=== PATIENT | male | born 1985 | race Caucasian/White ===

== ENCOUNTER 2016-12-26 17:47 | Inpatient (IN) | payer OTHER ==
[~2016-12-26] VITALS: Ht 177.8 cm; Wt 59.3 kg
[~2016-12-26 17:47] MED LIST: LANTUS2P SQ; LANTUSP SQ; METHY10 PO; NOVORP2 SQ
[2016-12-26 18:30] VITALS: BP 107/76; PULSE 100; RESP 18
[2016-12-26] MEDS ORDERED: SODIUM CHLOR 0.9% 1000 ML INJ 1,000 ML IV ONE ×2 (18:33→19:03)
--- NOTE | 2016-12-26 18:33 | PD ---
HPI Chief Complaint: Psychiatric Symptoms Time Seen by Provider: 18:29 Travel History International Travel<30 days: No Contact w/Intl Traveler<30days: No Traveled to known affect area: No History of Present Illness HPI 31-year-old male with history of depression, type 1 diabetes, presents to emergency department under Gonzalez act for psychiatric evaluation. Patient states that he was working in the [employer] and his father thought that he was planning on hanging himself. He states he did not make any mention of this. He attributes this to his father being intoxicated. Patient states he is depressed and has extreme anxiety. States that his blood glucose has been poorly controlled due to not being able to get his medication. Denies any chest pharyngitis. Difficulty breathing. No fever or chills. He has other symptoms to report. PFSH Past Medical History Blood Disorders: No Anxiety: Yes Depression: Yes Cancer: No Cardiovascular Problems: No Diabetes: Yes Diminished Hearing: No Endocrine: Yes Genitourinary: No Immune Disorder: No Musculoskeletal: Yes (L HIP) Neurologic: No Psychiatric: Yes Reproductive: No Respiratory: No Immunizations Current: Yes Pancreatitis: Yes Renal Failure: Yes Seizures: No Thyroid Disease: No Ulcer: No Past Surgical History Appendectomy: Yes Other Surgery: Yes (APPENDECTOMY AT 16 Y/O) Social History Alcohol Use: No Tobacco Use: Yes (2 ppd) Substance Use: Yes Allergies-Medications (Allergen,Severity, Reaction): Coded Allergies: No Known Allergies (Verified , 10/23/06) Reported Meds & Prescriptions Reported Meds & Active Scripts Active Reported Dilaudid (Hydromorphone HCl) 4 Mg Tab 4 Mg PO Q6H PRN Valium (Diazepam) 10 Mg Tab 10 Mg PO TID PRN Ritalin IR (Methylphenidate HCl) 20 Mg Tab 20 Mg PO TIDAC Humulin R Inj (Insulin Human Regular) 1,000 Unit/10 Ml Vial 1 Units SQ ONCE Lantus Inj (Insulin Glargine) 1,000 Unit/10 Ml Vial 47 Units SQ HS Gabapentin 600 Mg Tab 600 Mg PO BID Gemfibrozil 600 Mg Tab 600 Mg PO DAILY Take 30 minutes prior to breakfast and dinner. Review of Systems Except as stated in HPI: all other systems reviewed are Neg Physical Exam Narrative GENERAL: Thin male patient, anxious but in no acute distress. SKIN: Focused skin assessment warm/dry. HEAD: Atraumatic. Normocephalic. EYES: Pupils equal and round. No scleral icterus. No injection or drainage. ENT: No nasal bleeding or discharge. Mucous membranes pink and moist. NECK: Trachea midline. No JVD. CARDIOVASCULAR: Regular rate and rhythm. No murmur appreciated. RESPIRATORY: No accessory muscle use. Clear to auscultation. Breath sounds equal bilaterally. GASTROINTESTINAL: Abdomen soft, non-tender, nondistended. Hepatic and splenic margins not palpable. MUSCULOSKELETAL: No obvious deformities. No clubbing. No cyanosis. No edema. NEUROLOGICAL: Awake and alert. No obvious cranial nerve deficits. Motor grossly within normal limits. Normal speech. Data Data Last Documented VS Vital Signs Date Time Temp Pulse Resp B/P (MAP) Pulse Ox O2 Delivery O2 Flow Rate FiO2 12/26/16 21:24 67 12 108/53 (71) 98 Room Air Orders Orders Electrocardiogram (12/26/16 18:33) Complete Blood Count With Diff (12/26/16 18:33) Comprehensive Metabolic Panel (12/26/16 18:33) Magnesium (Mg) (12/26/16 18:33) Beta Hydroxybutyrate (Acetone) (12/26/16 18:33) Urinalysis - C+S If Indicated (12/26/16 18:33) Ecg Monitoring (12/26/16 18:33) Iv Access Insert/Monitor (12/26/16 18:33) Oximetry (12/26/16 18:33) NPO (12/26/16 18:33) Sodium Chlor 0.9% 1000 Ml Inj (Ns 1000 M (12/26/16 18:33) Sodium Chlor 0.9% 1000 Ml Inj (Ns 1000 M (12/26/16 19:03) Sodium Chloride 0.9% Flush (Ns Flush) (12/26/16 18:45) Lipase (12/26/16 18:33) Psych Screen (12/26/16 18:37) Arterial Blood Gas (Abg) (12/26/16 ) Insulin Human Regular Inj (Novolin R Inj (12/26/16 22:15) Lactated Ringer's 1000 Ml Inj (Lr 1000 M (12/26/16 22:15) Insulin Human Regular Inj (Novolin R Inj (12/26/16 22:30) Labs Laboratory Tests Test 12/26/16 18:05 12/26/16 19:10 12/26/16 20:49 White Blood Count 7.3 TH/MM3 Red Blood Count 5.04 MIL/MM3 Hemoglobin 14.8 GM/DL Hematocrit 44.1 % Mean Corpuscular Volume 87.5 FL Mean Corpuscular Hemoglobin 29.5 PG Mean Corpuscular Hemoglobin Concent 33.7 % Red Cell Distribution Width 14.3 % Platelet Count 243 TH/MM3 Mean Platelet Volume 9.3 FL Neutrophils (%) (Auto) 52.0 % Lymphocytes (%) (Auto) 40.4 % Monocytes (%) (Auto) 5.0 % Eosinophils (%) (Auto) 1.5 % Basophils (%) (Auto) 1.1 % Neutrophils # (Auto) 3.8 TH/MM3 Lymphocytes # (Auto) 2.9 TH/MM3 Monocytes # (Auto) 0.4 TH/MM3 Eosinophils # (Auto) 0.1 TH/MM3 Basophils # (Auto) 0.1 TH/MM3 CBC Comment DIFF FINAL Differential Comment Blood Gas Puncture Site RT RADIAL Blood Gas Patient Temperature 98.6 Blood Gas HCO3 30 mmol/L Blood Gas Base Excess 5.1 mmol/L Blood Gas Oxygen Saturation 92 % Arterial Blood pH 7.39 Arterial Blood Partial Pressure CO2 50 mmHg Arterial Blood Partial Pressure O2 80 mmHG Arterial Blood Oxygen Content 17.1 Vol % Arterial Blood Carboxyhemoglobin 3.8 % Arterial Blood Methemoglobin 0.5 % Blood Gas Hemoglobin 13.2 G/DL Oxygen Delivery Device ROOM AIR Blood Gas Inspired Oxygen 21 % Blood Urea Nitrogen 19 MG/DL Creatinine 1.27 MG/DL Random Glucose 516 MG/DL Total Protein 8.5 GM/DL Albumin 3.5 GM/DL Calcium Level 8.8 MG/DL Magnesium Level 2.1 MG/DL Alkaline Phosphatase 94 U/L Aspartate Amino Transf (AST/SGOT) 26 U/L Alanine Aminotransferase (ALT/SGPT) 26 U/L Total Bilirubin 0.7 MG/DL Sodium Level 129 MEQ/L Potassium Level 4.3 MEQ/L Chloride Level 92 MEQ/L Carbon Dioxide Level 28.5 MEQ/L Anion Gap 9 MEQ/L Estimat Glomerular Filtration Rate 67 ML/MIN Lipase 39 U/L B-Hydroxybutyrate 0.17 MMOL/L [facility] Medical Decision Making Medical Screen Exam Complete: Yes Emergency Medical Condition: Yes Medical Record Reviewed: Yes Differential Diagnosis Hyperglycemia versus DKA versus substance abuse versus mood disorder versus personality disorder versus adjustment reaction disorder Narrative Course 31-year-old male presents to the emergency department under a Gonzalez act for psychiatric evaluation. Patient has history of diabetes and states he has poorly controlled diabetes. He also has chronic pain secondary to a left femur fracture. We are unable to obtain a number reading on her Accu-Chek. Lab work is sent for medical clearance. Patient is given IV fluid illnesses. Chem panel has not yet resulted. I have requested a Accu-Chek. Blood glucoses 342. He is given 5 units subcutaneous regular insulin and a liter of fluid. Laboratory Tests Test 12/26/16 18:05 12/26/16 19:10 12/26/16 20:49 White Blood Count 7.3 TH/MM3 Red Blood Count 5.04 MIL/MM3 Hemoglobin 14.8 GM/DL Hematocrit 44.1 % Mean Corpuscular Volume 87.5 FL Mean Corpuscular Hemoglobin 29.5 PG Mean Corpuscular Hemoglobin Concent 33.7 % Red Cell Distribution Width 14.3 % Platelet Count 243 TH/MM3 Mean Platelet Volume 9.3 FL Neutrophils (%) (Auto) 52.0 % Lymphocytes (%) (Auto) 40.4 % Monocytes (%) (Auto) 5.0 % Eosinophils (%) (Auto) 1.5 % Basophils (%) (Auto) 1.1 % Neutrophils # (Auto) 3.8 TH/MM3 Lymphocytes # (Auto) 2.9 TH/MM3 Monocytes # (Auto) 0.4 TH/MM3 Eosinophils # (Auto) 0.1 TH/MM3 Basophils # (Auto) 0.1 TH/MM3 CBC Comment DIFF FINAL Differential Comment Blood Gas Puncture Site RT RADIAL Blood Gas Patient Temperature 98.6 Blood Gas HCO3 30 mmol/L Blood Gas Base Excess 5.1 mmol/L Blood Gas Oxygen Saturation 92 % Arterial Blood pH 7.39 Arterial Blood Partial Pressure CO2 50 mmHg Arterial Blood Partial Pressure O2 80 mmHG Arterial Blood Oxygen Content 17.1 Vol % Arterial Blood Carboxyhemoglobin 3.8 % Arterial Blood Methemoglobin 0.5 % Blood Gas Hemoglobin 13.2 G/DL Oxygen Delivery Device ROOM AIR Blood Gas Inspired Oxygen 21 % Blood Urea Nitrogen 19 MG/DL Creatinine 1.27 MG/DL Random Glucose 516 MG/DL Total Protein 8.5 GM/DL Albumin 3.5 GM/DL Calcium Level 8.8 MG/DL Magnesium Level 2.1 MG/DL Alkaline Phosphatase 94 U/L Aspartate Amino Transf (AST/SGOT) 26 U/L Alanine Aminotransferase (ALT/SGPT) 26 U/L Total Bilirubin 0.7 MG/DL Sodium Level 129 MEQ/L Potassium Level 4.3 MEQ/L Chloride Level 92 MEQ/L Carbon Dioxide Level 28.5 MEQ/L Anion Gap 9 MEQ/L Estimat Glomerular Filtration Rate 67 ML/MIN Lipase 39 U/L B-Hydroxybutyrate 0.17 MMOL/L He is signed out to my attending physician. He remains under Gonzalez act. I have initiated sliding scale insulin and Accu-Cheks. If blood glucose continues to decline, patient will be medically cleared to undergo psychiatric screening for further evaluation and disposition. Mental health screening discussed with the patient. Psychiatric screen ordered. Diagnosis Primary Impression: Adjustment reaction with anxiety and depression Additional Impression: Hyperglycemia due to type 1 diabetes mellitus Condition: Stable Wendy Cunha Dec 26, 2016 18:33
[2016-12-26] MEDS ORDERED: SODIUM CHLORIDE 0.9% FLUSH 10 ML FLUSH IVF PRN (18:45)
[2016-12-26] MEDS ORDERED: DIAZ10 PO (18:49)
[2016-12-26] MEDS ORDERED: GEMF600T PO (18:49)
[2016-12-26] MEDS ORDERED: GABA600T PO (18:49)
[2016-12-26] MEDS ORDERED: LANTUS2P SQ (18:49)
[2016-12-26] MEDS ORDERED: RITA20TA PO (18:49)
[2016-12-26] MEDS ORDERED: DILA4TAB2 PO (18:49)
[2016-12-26] MEDS ORDERED: INSU100V2 SQ (18:49)
[2016-12-26 18:57] LABS: AUTOMATED NEUTROPHIL # 3.8 TH/MM3 (1.8-7.7); BASOPHIL # 0.1 TH/MM3 (0-0.2); BASOPHIL % 1.1 % (0.0-2.0); EOSINOPHIL # 0.1 TH/MM3 (0-0.4); EOSINOPHIL % 1.5 % (0.0-4.0); HEMATOCRIT 44.1 % (39.0-51.0); HEMO FLAGS DIFF FINAL; LYMPH % 40.4 % (9.0-44.0); LYMPHOCYTE # 2.9 TH/MM3 (1.0-4.8); MEAN CELL VOLUME 87.5 FL (80.0-100.0); MEAN CORPUSCULAR HEMOGLOBIN 29.5 PG (27.0-34.0); MEAN CORPUSCULAR HGB CONC 33.7 % (32.0-36.0); PLATELET COUNT 243 TH/MM3 (150-450); RED BLOOD COUNT 5.04 MIL/MM3 (4.50-5.90); RED CELL DISTRIBUTION WIDTH 14.3 % (11.6-17.2); WHITE BLOOD COUNT 7.3 TH/MM3 (4.0-11.0)
[2016-12-26 19:22] LABS: BLOOD GAS BASE EXCESS 5.1 mmol/L (-2-2); BLOOD GAS CARBOXYHEMOGLOBIN 3.8 % (0-4); BLOOD GAS HCO3 30 mmol/L (22-26); BLOOD GAS METHEMOGLOBIN 0.5 % (0-2); BLOOD GAS O2 HGB SATURATION 92 % (90-100); BLOOD GAS OXYGEN CONTENT 17.1 Vol % (12.0-20.0); BLOOD GAS PCO2 50 mmHg (38-42); BLOOD GAS PO2 80 mmHG (61-120); BLOOD GAS TOTAL HGB 13.2 G/DL (12.0-16.0); CRITICAL VALUE NO; FIO2 21 %; OXYGEN DEVICE ROOM AIR; TEMP CORR TO 98.6
[2016-12-26 19:23] LABS: DRAW SITE RT RADIAL; NUMBER OF ARTERIAL PUNCTURES 1; STAT YES; ULNAR PULSE PRESENT
[2016-12-26 19:34] VITALS: RESP 12; O2SAT 93
[2016-12-26 19:35] VITALS: BP 104/69; PULSE 72; RESP 12; O2SAT 94
[2016-12-26 20:39] VITALS: BP 116/77; PULSE 68; RESP 12; O2SAT 99
[2016-12-26 21:24] VITALS: BP 108/53; PULSE 67; RESP 12; O2SAT 98
[2016-12-26 21:40] LABS: ALKALINE PHOSPHATASE 94 U/L (45-117); ALT (GPT) 26 U/L (12-78); ANION GAP 9 MEQ/L (5-15); AST (GOT) 26 U/L (15-37); BETA-HYDROXYBUTYRATE 0.17 MMOL/L (0.00-0.39); BICARBONATE 28.5 MEQ/L (21.0-32.0); BLOOD UREA NITROGEN 19 MG/DL (7-18); CHLORIDE 92 MEQ/L (98-107); GLOMERULAR FILTRATION RATE 67 ML/MIN (>89); MAGNESIUM 2.1 MG/DL (1.5-2.5); POTASSIUM 4.3 MEQ/L (3.5-5.1); SODIUM (NA) 129 MEQ/L (136-145); TOTAL BILIRUBIN ADULT 0.7 MG/DL (0.2-1.0)
[2016-12-26] MEDS ORDERED: INSULIN HUMAN REGULAR 1,000 UNITS/10 ML VIAL SQ ONE ×2 (22:15→22:30)
[2016-12-26] MEDS ORDERED: LACTATED RINGER'S 1000 ML INJ 1,000 ML IV ONE (22:15)
[2016-12-26] MEDS ORDERED: GLUCAGON 1 MG/ML VIAL OTHER PRN ×2 (22:30)
[2016-12-26] MEDS ORDERED: DEXTROSE 50% IN WATER 50 ML VIAL(D50) IV PRN (22:30)
[2016-12-27 00:03] VITALS: BP 101/69; PULSE 72; RESP 12; O2SAT 99
--- NOTE | 2016-12-27 01:33 | PD ---
Physical Exam Date Seen by Provider: Dec 27, 2016 Time Seen by Provider: 01:32 Narrative Accepted in transfer of care GENERAL: Well developed dishevelled male in no acute distress; GCS 15 SKIN: Warm and dry. HEAD: Normocephalic. EYES: No scleral icterus. No injection or drainage. NECK: Supple, trachea midline. No JVD or lymphadenopathy. CARDIOVASCULAR: Regular rate and rhythm without murmurs, gallops, or rubs. RESPIRATORY: Breath sounds equal bilaterally. No accessory muscle use. Data Data Last Documented VS Vital Signs Date Time Temp Pulse Resp B/P (MAP) Pulse Ox O2 Delivery O2 Flow Rate FiO2 12/27/16 07:00 71 15 91/54 (66) 100 Room Air Orders Orders Electrocardiogram (12/26/16 18:33) Complete Blood Count With Diff (12/26/16 18:33) Comprehensive Metabolic Panel (12/26/16 18:33) Magnesium (Mg) (12/26/16 18:33) Beta Hydroxybutyrate (Acetone) (12/26/16 18:33) Urinalysis - C+S If Indicated (12/26/16 18:33) Ecg Monitoring (12/26/16 18:33) Iv Access Insert/Monitor (12/26/16 18:33) Oximetry (12/26/16 18:33) NPO (12/26/16 18:33) Sodium Chlor 0.9% 1000 Ml Inj (Ns 1000 M (12/26/16 18:33) Sodium Chlor 0.9% 1000 Ml Inj (Ns 1000 M (12/26/16 19:03) Sodium Chloride 0.9% Flush (Ns Flush) (12/26/16 18:45) Lipase (12/26/16 18:33) Psych Screen (12/26/16 18:37) Arterial Blood Gas (Abg) (12/26/16 ) Insulin Human Regular Inj (Novolin R Inj (12/26/16 22:15) Lactated Ringer's 1000 Ml Inj (Lr 1000 M (12/26/16 22:15) Insulin Human Regular Inj (Novolin R Inj (12/26/16 22:30) Blood Glucose Goal (Criteria) (12/26/16 22:28) Hypoglycemia 70 Mg/Dl Or < (12/26/16 22:28) Notify Dr: Other (12/26/16 22:28) Dextrose 50% In Ramirez (Vial) Inj (D50w (Vi (12/26/16 22:30) Glucagon Inj (Glucagon Inj) (12/26/16 22:30) Blood Glucose Goal (Criteria) (12/26/16 22:28) Hypoglycemia 70 Mg/Dl Or < (12/26/16 22:28) Notify Dr: Other (12/26/16 22:28) Dextrose 50% In Ramirez (Vial) Inj (D50w (Vi (12/26/16 22:30) Glucagon Inj (Glucagon Inj) (12/26/16 22:30) Insulin Human Reg Supp Scale (Novolin R (12/27/16 07:00) Sodium Chlor 0.9% 1000 Ml Inj (Ns 1000 M (12/27/16 01:45) Insulin Human Regular Inj (Novolin R Inj (12/27/16 02:00) Diet Diabetic (12/27/16 Breakfast) Labs Laboratory Tests Test 12/26/16 18:05 12/26/16 19:10 12/26/16 20:49 White Blood Count 7.3 TH/MM3 Red Blood Count 5.04 MIL/MM3 Hemoglobin 14.8 GM/DL Hematocrit 44.1 % Mean Corpuscular Volume 87.5 FL Mean Corpuscular Hemoglobin 29.5 PG Mean Corpuscular Hemoglobin Concent 33.7 % Red Cell Distribution Width 14.3 % Platelet Count 243 TH/MM3 Mean Platelet Volume 9.3 FL Neutrophils (%) (Auto) 52.0 % Lymphocytes (%) (Auto) 40.4 % Monocytes (%) (Auto) 5.0 % Eosinophils (%) (Auto) 1.5 % Basophils (%) (Auto) 1.1 % Neutrophils # (Auto) 3.8 TH/MM3 Lymphocytes # (Auto) 2.9 TH/MM3 Monocytes # (Auto) 0.4 TH/MM3 Eosinophils # (Auto) 0.1 TH/MM3 Basophils # (Auto) 0.1 TH/MM3 CBC Comment DIFF FINAL Differential Comment Blood Gas Puncture Site RT RADIAL Blood Gas Patient Temperature 98.6 Blood Gas HCO3 30 mmol/L Blood Gas Base Excess 5.1 mmol/L Blood Gas Oxygen Saturation 92 % Arterial Blood pH 7.39 Arterial Blood Partial Pressure CO2 50 mmHg Arterial Blood Partial Pressure O2 80 mmHG Arterial Blood Oxygen Content 17.1 Vol % Arterial Blood Carboxyhemoglobin 3.8 % Arterial Blood Methemoglobin 0.5 % Blood Gas Hemoglobin 13.2 G/DL Oxygen Delivery Device ROOM AIR Blood Gas Inspired Oxygen 21 % Blood Urea Nitrogen 19 MG/DL Creatinine 1.27 MG/DL Random Glucose 516 MG/DL Total Protein 8.5 GM/DL Albumin 3.5 GM/DL Calcium Level 8.8 MG/DL Magnesium Level 2.1 MG/DL Alkaline Phosphatase 94 U/L Aspartate Amino Transf (AST/SGOT) 26 U/L Alanine Aminotransferase (ALT/SGPT) 26 U/L Total Bilirubin 0.7 MG/DL Sodium Level 129 MEQ/L Potassium Level 4.3 MEQ/L Chloride Level 92 MEQ/L Carbon Dioxide Level 28.5 MEQ/L Anion Gap 9 MEQ/L Estimat Glomerular Filtration Rate 67 ML/MIN Lipase 39 U/L B-Hydroxybutyrate 0.17 MMOL/L [facility] Medical Record Reviewed: Yes Supervised Visit with SO: No Interpretation(s) CBC & BMP Diagram 12/26/16 18:05 12/26/16 20:49 Total Protein 8.5 H, Albumin 3.5, Calcium Level 8.8, Magnesium Level 2.1, Alkaline Phosphatase 94, Aspartate Amino Transf (AST/SGOT) 26, Alanine Aminotransferase (ALT/SGPT) 26, Total Bilirubin 0.7 Vital Signs Date Time Temp Pulse Resp B/P (MAP) Pulse Ox O2 Delivery O2 Flow Rate FiO2 12/27/16 02:12 72 12 96/61 (73) 100 Room Air 12/27/16 00:03 72 12 101/69 (80) 99 Room Air 12/26/16 21:24 67 12 108/53 (71) 98 Room Air 12/26/16 20:39 68 12 116/77 (90) 99 Room Air 12/26/16 19:35 72 12 104/69 (81) 94 Room Air 12/26/16 19:34 12 93 Room Air 12/26/16 18:36 87 18 12/26/16 18:30 100 18 107/76 (86) Serum acetone: 0.17, not elevated Differential Diagnosis Please see note from prior provider Narrative Course Accepted in transfer of care for follow-up of pending repeat glucose after receiving 5 units of Regular Insulin IV and IV fluids Patient's blood sugars trended down slightly given additional 2 units of Regular Insulin additional IV fluids; patient cooperative; 31-year-old male presented as a Gonzalez act after reportedly suggesting that he was planning on giving himself from his father's garage. Patient has history of depression. Patient will require evaluation by psychiatry but appears to just have poorly controlled diabetes that is responsive to insulin and does not require medical management other than sliding-scale insulin. No indication the patient is in DKA. No acute metabolic disturbance; patient has diabetes responsive to insulin therapy. Patient is waiting on psych evaluation. Diagnosis Primary Impression: Adjustment reaction with anxiety and depression Additional Impressions: Hyperglycemia due to type 1 diabetes mellitus Suicidal ideation Condition: Stable Dea Rojas MD Dec 27, 2016 01:33
[2016-12-27] MEDS ORDERED: SODIUM CHLOR 0.9% 1000 ML INJ 1,000 ML IV ONE (01:45)
[2016-12-27] MEDS ORDERED: INSULIN HUMAN REGULAR 1,000 UNITS/10 ML VIAL SQ ONE (02:00)
[2016-12-27 02:12] VITALS: BP 96/61; PULSE 72; RESP 12; O2SAT 100
[2016-12-27 06:00] VITALS: BP 112/69; PULSE 74; RESP 14; O2SAT 98
[2016-12-27 07:00] VITALS: BP 91/54; PULSE 71; RESP 15; O2SAT 100
[2016-12-27] MEDS: INSULIN NovoLIN REGULAR SUPPLEMENTAL SCALE SQ SCH ×4 (08:23→20:41)
--- NOTE | 2016-12-27 08:29 | EKG ---
Date Performed: 12/26/2016 Time Performed: 18:44:20 PTAGE: 31 years EKG: Sinus rhythm WITH SINUS ARRHYTHMIA NORMAL ECG PREVIOUS TRACING : 10/23/2006 16.05 No significant change from previous tracing noted. DOCTOR: Huey Light Interpretating Date/Time 12/27/2016 08:27:13
--- NOTE | 2016-12-27 10:33 | PD ---
History of Present Illness Chief Complaint: Psychiatric Symptoms Time Seen by Provider: 10:25 Travel History International Travel<30 Days: No Contact w/Intl Traveler<30days: No Known affected area: No Legal Status Legal Status: Gonzalez Act Gonzalez Act Signed By: Soniya Mobley History of Present Illness: History of Present Illness HPI 31-year-old male with history of depression, type 1 diabetes, substance use disorder who presents to emergency department under a Gonzalez act initiated by law enforcement . The police were called by the patient's father when he saw the patient with a rope in his hand possibly making a noose. The patient is reported to have been making suicidal statements to both parents. The patient denies that he was making a noose but that he had the rope because he was working in the attic of their home. EMR is reviewed. He has had three admissions to [facility] psychiatry department dating to 2004 when he was 19 years old. Several were under a BA after he reported suicidal ideation and usually in context of substance intoxication. His last contact with psychiatry was in 2013 . The patient is seen in main ed. He is asleep and appears tired and reluctantly agrees to answer questions. He is wearing a hospital gown . Poor hygiene is noted. He has multiple sores on his arms.Speech is clear and logical. Mood is depressed with irritability and poor frustration tolerance. He acknowledges feeling depressed in relation to the anniversary of his brother's 10 years ago. " They say I was responsible for his ". His brother of a drug overdose. There is no psychosis and no bunny. He denies suicidal ideation. Patient has not been compliant with his treatment for diabetes and his blood glucose was in the 500 when he arrived. In terms of previous tx: Reports has a hx of treatment with anti depressants. Last took Effexor 1 year ago " It made me worse". He does report that Dr. Sherwood in [place] prescribes Valium . No toxicology report is available at this time [facility] Past Medical History Blood Disorders: No Anxiety: Yes Depression: Yes Cancer: No Cardiovascular Problems: No Diabetes: Yes Patient Takes Glucophage: No Diminished Hearing: No Endocrine: Yes Genitourinary: No Immune Disorder: No Musculoskeletal: Yes (L HIP) Neurologic: No Psychiatric: Yes Reproductive: No Respiratory: No Immunizations Current: Yes Pancreatitis: Yes Renal Failure: Yes Seizures: No Thyroid Disease: No Ulcer: No Past Surgical History Appendectomy: Yes Other Surgery: Yes (APPENDECTOMY AT 16 Y/O) Psychiatric History Psychiatric History Hx Psychiatric Treatment: PATIENT WAS LAST ADMITTED TO [facility] FROM 06/28/09 TO 06/30/09 FOR DEPRESSION. History of Inpatient Treatment: Yes Guns or firearms in home: No Social History Single . Completed 10th grade and later obtained his GED. Unemployed. Lives with parents. Hx of DUI before age 19 years. Incarcerated in . Hx Alcohol Use: No Hx Tobacco Use: Yes (2 ppd) Hx Substance Use: Yes Substance Use Type: Marijuana, Amphetamines-Stimulants, Nicotine/Cigarettes Other Substances Used: xanax, suboxane---2 ppd Hx of Substance Use Treatment: Yes ([facility] in 2013) Family Psychiatric History Brother of drug overdose. Uncle hung himself. Allergies-Medications (Allergen,Severity, Reaction): Coded Allergies: No Known Allergies (Verified , 10/23/06) Reported Meds & Prescriptions Reported Meds & Active Scripts Active Reported Dilaudid (Hydromorphone HCl) 4 Mg Tab 4 Mg PO Q6H PRN Valium (Diazepam) 10 Mg Tab 10 Mg PO TID PRN Ritalin IR (Methylphenidate HCl) 20 Mg Tab 20 Mg PO TIDAC Humulin R Inj (Insulin Human Regular) 1,000 Unit/10 Ml Vial 1 Units SQ ONCE Lantus Inj (Insulin Glargine) 1,000 Unit/10 Ml Vial 47 Units SQ HS Gabapentin 600 Mg Tab 600 Mg PO BID Gemfibrozil 600 Mg Tab 600 Mg PO DAILY Take 30 minutes prior to breakfast and dinner. Review of Systems ROS Limitations: Uncooperative Exam Alert: Yes [place]: Person (ox4) Mood: Angry, Depressed Affect: Appropriate Speech: Clear, Logical Eye Contact: None Memory Intact: Comment (not tested) Delusions: No Suicidal: Ideation (deneis) Homicidal: Ideation (deneis) Insight/Judgement Poor. Not impaired. [facility] Medical Decision Making Medical Record Reviewed: Yes Assessment/Plan 31-year-old male with history of depression, type 1 diabetes, presents to emergency department under Gonzalez act for psychiatric evaluation. Patient states that he was working in the attic and his father thought that he was planning on hanging himself. Patient states he is depressed and has extreme anxiety, has not been taking any psychiatric medication and poor compliance with medication for his diabetes. Admit to inpatient treatment appears depressed, not caring for himself, currently not on medication. He requires inpatient treatment for further evaluation, initiate treatment, maintain safety. Urine drug screen is ordered as well as hospitalist consult. Orders Orders Electrocardiogram (12/26/16 18:33) Complete Blood Count With Diff (12/26/16 18:33) Comprehensive Metabolic Panel (12/26/16 18:33) Magnesium (Mg) (12/26/16 18:33) Beta Hydroxybutyrate (Acetone) (12/26/16 18:33) Urinalysis - C+S If Indicated (12/26/16 18:33) Ecg Monitoring (12/26/16 18:33) Iv Access Insert/Monitor (12/26/16 18:33) Oximetry (12/26/16 18:33) NPO (12/26/16 18:33) Sodium Chlor 0.9% 1000 Ml Inj (Ns 1000 M (12/26/16 18:33) Sodium Chlor 0.9% 1000 Ml Inj (Ns 1000 M (12/26/16 19:03) Sodium Chloride 0.9% Flush (Ns Flush) (12/26/16 18:45) Lipase (12/26/16 18:33) Psych Screen (12/26/16 18:37) Arterial Blood Gas (Abg) (12/26/16 ) Insulin Human Regular Inj (Novolin R Inj (12/26/16 22:15) Lactated Ringer's 1000 Ml Inj (Lr 1000 M (12/26/16 22:15) Insulin Human Regular Inj (Novolin R Inj (12/26/16 22:30) Blood Glucose Goal (Criteria) (12/26/16 22:28) Hypoglycemia 70 Mg/Dl Or < (12/26/16 22:28) Notify Dr: Other (12/26/16 22:28) Dextrose 50% In Ramirez (Vial) Inj (D50w (Vi (12/26/16 22:30) Glucagon Inj (Glucagon Inj) (12/26/16 22:30) Blood Glucose Goal (Criteria) (12/26/16 22:28) Hypoglycemia 70 Mg/Dl Or < (12/26/16 22:28) Notify Dr: Other (12/26/16 22:28) Dextrose 50% In Ramirez (Vial) Inj (D50w (Vi (12/26/16 22:30) Glucagon Inj (Glucagon Inj) (12/26/16 22:30) Insulin Human Reg Supp Scale (Novolin R (12/27/16 07:00) Sodium Chlor 0.9% 1000 Ml Inj (Ns 1000 M (12/27/16 01:45) Insulin Human Regular Inj (Novolin R Inj (12/27/16 02:00) Diet Diabetic (12/27/16 Breakfast) Results Vital Signs Date Time Temp Pulse Resp B/P (MAP) Pulse Ox O2 Delivery O2 Flow Rate FiO2 12/27/16 07:00 71 15 91/54 (66) 100 Room Air 12/27/16 06:00 74 14 112/69 (83) 98 Room Air 12/27/16 02:12 72 12 96/61 (73) 100 Room Air 12/27/16 00:03 72 12 101/69 (80) 99 Room Air 12/26/16 21:24 67 12 108/53 (71) 98 Room Air 12/26/16 20:39 68 12 116/77 (90) 99 Room Air 12/26/16 19:35 72 12 104/69 (81) 94 Room Air 12/26/16 19:34 12 93 Room Air 12/26/16 18:36 87 18 12/26/16 18:30 100 18 107/76 (86) Laboratory Tests Test 12/26/16 18:05 12/26/16 19:10 12/26/16 20:49 White Blood Count 7.3 Red Blood Count 5.04 Hemoglobin 14.8 Hematocrit 44.1 Mean Corpuscular Volume 87.5 Mean Corpuscular Hemoglobin 29.5 Mean Corpuscular Hemoglobin Concent 33.7 Red Cell Distribution Width 14.3 Platelet Count 243 Mean Platelet Volume 9.3 Neutrophils (%) (Auto) 52.0 Lymphocytes (%) (Auto) 40.4 Monocytes (%) (Auto) 5.0 Eosinophils (%) (Auto) 1.5 Basophils (%) (Auto) 1.1 Neutrophils # (Auto) 3.8 Lymphocytes # (Auto) 2.9 Monocytes # (Auto) 0.4 Eosinophils # (Auto) 0.1 Basophils # (Auto) 0.1 CBC Comment DIFF FINAL Differential Comment Blood Gas Puncture Site RT RADIAL Blood Gas Patient Temperature 98.6 Blood Gas HCO3 30 Blood Gas Base Excess 5.1 Blood Gas Oxygen Saturation 92 Arterial Blood pH 7.39 Arterial Blood Partial Pressure CO2 50 Arterial Blood Partial Pressure O2 80 Arterial Blood Oxygen Content 17.1 Arterial Blood Carboxyhemoglobin 3.8 Arterial Blood Methemoglobin 0.5 Blood Gas Hemoglobin 13.2 Oxygen Delivery Device ROOM AIR Blood Gas Inspired Oxygen 21 Blood Urea Nitrogen 19 Creatinine 1.27 Random Glucose 516 Total Protein 8.5 Albumin 3.5 Calcium Level 8.8 Magnesium Level 2.1 Alkaline Phosphatase 94 Aspartate Amino Transf (AST/SGOT) 26 Alanine Aminotransferase (ALT/SGPT) 26 Total Bilirubin 0.7 Sodium Level 129 Potassium Level 4.3 Chloride Level 92 Carbon Dioxide Level 28.5 Anion Gap 9 Estimat Glomerular Filtration Rate 67 Lipase 39 B-Hydroxybutyrate 0.17 Diagnosis Primary Impression: Adjustment reaction with anxiety and depression Additional Impression: Substance abuse Admitting Information Admitting Physician Requests: Admit Condition: Stable Problem Qualifiers Neha Espinoza [employer]SEM[employer] BILLIARD TABLE Dec 27, 2016 10:33
[2016-12-27] MEDS ORDERED: MAGNESIUM HYDROXIDE SUSP 30 ML CUP PO PRN (11:00)
[2016-12-27] MEDS ORDERED: ALUMINUM/MAGNESIUM/SIMETH 30 ML CUP PO PRN (11:00)
[2016-12-27] MEDS ORDERED: ACETAMINOPHEN 325 MG TAB PO PRN (11:00)
[2016-12-27 11:08] LABS: BLOOD, URINE NEG (NEG); GLUCOSE,URINE 1000 mg/dL (NEG); KETONE, URINE NEG (NEG); NITRITE,URINE NEG (NEG); PH, URINE 6.5 (5.0-8.5); URINE COLOR YELLOW (YELLW/STRAW)
[2016-12-27 11:09] LABS: COMMENT (UR) CULT NOT INDICATED; CULTURE IF INDICATED CULT NOT INDICATED
[2016-12-27 11:32] VITALS: BP 106/74
[2016-12-27 12:35] VITALS: BP 105/60; PULSE 74; RESP 18; TEMP 97.7; O2SAT 96
--- NOTE | 2016-12-27 14:17 | PD.CONS ---
HPI Service [facility] Consult Requested By Psychiatry team Reason for Consult Assist with medical management - diabetes Primary Care Physician No Primary Care Physician Diagnoses: History of Present Illness Written by Marla Cao, acting as scribe for Dr. Payan on 12/27/16 at 14: 05. Patient is a 31-year-old male with primary medical history of diabetes, anxiety , depression who came into the hospital under Gonzalez act after his father thought that he plans to hang himself. Patient states that he has been arguing with his father on and off as he is living with them. He was trying to do an electrical wiring in the house and his father states that he is trying to hang himself. Patient states that he has an ongoing depression and anxiety however he refused therapy and medications for it. States he has never been on any medication although he was prescribed Effexor in the past. He also states that he does not get his medication for his insulin because he can't afford it. He only gets it when his parents allows him to get his medication. Patient reports that he is seeing a primary physician, Dr. Sherwood psychiatry and Dr. Lugo for pain management. States he is being given Ritalin by Dr. Sherwood. He gets Dilaudid [address] Lugo pain management. Complaints of pain located in his left femur, states he shattered it and had multiple surgeries, hardware and rods have been removed. He also mentioned that NovoLog is not working for him and it's only Humalog or Humulin that has worked aside from Lantus, which he is unable to afford. Denies SOB/ dyspnea. Denies chest pain, palpitations, headaches, dizziness. Denies fevers, chills, n/v/d. Denies dysuria. Review of Systems Except as stated in HPI: all other systems reviewed are Neg Past Family Social History Allergies: Coded Allergies: No Known Allergies (Verified , 10/23/06) Past Medical History Diabetes Anxiety Depression Chronic kidney disease Chronic pain ADHD Past Surgical History Appendectomy Left femur surgery, 5 times surgery on the left leg Reported Medications Pulled from hospitalization, as instructed by Maddy Reported Meds & Active Scripts Active Reported Dilaudid (Hydromorphone HCl) 4 Mg Tab 4 Mg PO Q6H PRN Valium (Diazepam) 10 Mg Tab 10 Mg PO TID PRN Ritalin IR (Methylphenidate HCl) 20 Mg Tab 20 Mg PO TIDAC Humulin R Inj (Insulin Human Regular) 1,000 Unit/10 Ml Vial 1 Units SQ ONCE Lantus Inj (Insulin Glargine) 1,000 Unit/10 Ml Vial 47 Units SQ HS Gabapentin 600 Mg Tab 600 Mg PO BID Gemfibrozil 600 Mg Tab 600 Mg PO DAILY Take 30 minutes prior to breakfast and dinner Active Ordered Medications Pulled from hospitalization, as instructed by Maddy Current Medications Medications (Trade) Dose Ordered Sig/Dangelo Route Start Time Stop Time Status Last Admin (NS Flush) 2 ml UNSCH PRN IVF 12/26/16 18:45 (D50w (Vial) Inj) 50 ml UNSCH PRN IV 12/26/16 22:30 (Glucagon Inj) 1 mg UNSCH PRN OTHER 12/26/16 22:30 (NovoLIN R SUPPLEMENTAL SCALE) 1 ACHS SLIDING SCALE SQ 12/27/16 07:00 12/27/16 08:23 (Tylenol) 650 mg Q4H PRN PO 12/27/16 11:00 (Milk Of Magnesia Liq) 30 ml DAILY PRN PO 12/27/16 11:00 (Mag-Al Plus Susp Liq) 30 ml Q6H PRN PO 12/27/16 11:00 (Levemir Inj) 10 units ONCE SQ 12/27/16 13:45 UNV (Levemir Inj) 15 units BID SQ 12/27/16 21:00 UNV Family History Family history both sides has heart problems, mother had hypertension but now is hypotensive Social History Lives with parents. Denies alcohol use Current smoker one half to a pack per day Denies illicit drug use Physical Exam Vital Signs Vital Signs Date Time Temp Pulse Resp B/P (MAP) Pulse Ox O2 Delivery O2 Flow Rate FiO2 12/27/16 12:35 97.7 74 18 105/60 (75) 96 12/27/16 11:32 65 15 106/74 (85) 98 12/27/16 07:00 71 15 91/54 (66) 100 Room Air 12/27/16 06:00 74 14 112/69 (83) 98 Room Air 12/27/16 02:12 72 12 96/61 (73) 100 Room Air 12/27/16 00:03 72 12 101/69 (80) 99 Room Air 12/26/16 21:24 67 12 108/53 (71) 98 Room Air 12/26/16 20:39 68 12 116/77 (90) 99 Room Air 12/26/16 19:35 72 12 104/69 (81) 94 Room Air 12/26/16 19:34 12 93 Room Air 12/26/16 18:36 87 18 12/26/16 18:30 100 18 107/76 (86) Physical Exam GENERAL: This is a well-nourished, well-developed patient, in no apparent distress. SKIN: Warm and dry. Multiple healed and open scab wounds throughout his body bilateral upper extremity and trunk area. HEAD: Normocephalic. No temporal or scalp tenderness. EYES: Pupils equal round and reactive. Extraocular motions intact. No scleral icterus. No injection or drainage. ENT: Nose without bleeding. Throat without erythema. Uvula midline. Airway patent. NECK: Trachea midline. Supple. CARDIOVASCULAR: Regular rate and rhythm without murmurs, gallops, or rubs. RESPIRATORY: Clear to auscultation. Breath sounds equal bilaterally. No wheezes , rales, or rhonchi. GASTROINTESTINAL: Abdomen soft, non-tender, nondistended. No guarding. BS Active x4. MUSCULOSKELETAL: Extremities without clubbing, cyanosis, or edema. NEUROLOGICAL: Awake and alert. Flat affect. Monotone voice. Motor and sensory grossly within normal limits. PSYCH: Flattened affect. Laboratory Laboratory Tests Test 12/26/16 18:05 12/26/16 19:10 12/26/16 20:49 White Blood Count 7.3 Red Blood Count 5.04 Hemoglobin 14.8 Hematocrit 44.1 Mean Corpuscular Volume 87.5 Mean Corpuscular Hemoglobin 29.5 Mean Corpuscular Hemoglobin Concent 33.7 Red Cell Distribution Width 14.3 Platelet Count 243 Mean Platelet Volume 9.3 Neutrophils (%) (Auto) 52.0 Lymphocytes (%) (Auto) 40.4 Monocytes (%) (Auto) 5.0 Eosinophils (%) (Auto) 1.5 Basophils (%) (Auto) 1.1 Neutrophils # (Auto) 3.8 Lymphocytes # (Auto) 2.9 Monocytes # (Auto) 0.4 Eosinophils # (Auto) 0.1 Basophils # (Auto) 0.1 CBC Comment DIFF FINAL Differential Comment Blood Gas Puncture Site RT RADIAL Blood Gas Patient Temperature 98.6 Blood Gas HCO3 30 Blood Gas Base Excess 5.1 Blood Gas Oxygen Saturation 92 Arterial Blood pH 7.39 Arterial Blood Partial Pressure CO2 50 Arterial Blood Partial Pressure O2 80 Arterial Blood Oxygen Content 17.1 Arterial Blood Carboxyhemoglobin 3.8 Arterial Blood Methemoglobin 0.5 Blood Gas Hemoglobin 13.2 Oxygen Delivery Device ROOM AIR Blood Gas Inspired Oxygen 21 Blood Urea Nitrogen 19 Creatinine 1.27 Random Glucose 516 Total Protein 8.5 Albumin 3.5 Calcium Level 8.8 Magnesium Level 2.1 Alkaline Phosphatase 94 Aspartate Amino Transf (AST/SGOT) 26 Alanine Aminotransferase (ALT/SGPT) 26 Total Bilirubin 0.7 Sodium Level 129 Potassium Level 4.3 Chloride Level 92 Carbon Dioxide Level 28.5 Anion Gap 9 Estimat Glomerular Filtration Rate 67 Lipase 39 B-Hydroxybutyrate 0.17 Result Diagram: 12/26/16180412/26/162048 Assessment and Plan Problem List: (1) Hyperglycemia due to type 1 diabetes mellitus ICD Code: E10.65 - Type 1 diabetes mellitus with hyperglycemia Status: Acute (2) Suicidal ideation ICD Code: R45.851 - Suicidal ideations Status: Acute Assessment and Plan Patient is a 31-year-old male with primary medical history of diabetes, anxiety , depression who came into the hospital under Gonzalez act after his father thought that he plans to hang himself. Suicidal Ideation, anxiety, depression ADHD - Managed by psychiatry team Hyperglycemia Type 1 diabetes - Noncompliant with medications. Described Lantus at home - Check hemoglobin A1c. Last hemoglobin A1c 10.1 2009 - Levemir 10 units 1 dose now then Levemir 15 units twice a day. Adjust as needed. - Insulin sliding scale Novolin - Monitor Accu-Cheks. Monitor for hypoglycemia. - ADA diet Chronic pain Left femur injuries - Reports he is on Dilaudid 4 mg as an outpatient - We will verify the dose through pain management, pharmacy - Will restart medication as needed if verified DVT prop Lovenox, ambulatory Code Status Full code Discussed Condition With Patient, nursing This note was transcribed by dipesh Cao. I, Dr. Riley Payan personally performed the history, physical exam, and medical decision making; and confirmed the accuracy of the information in the transcribed note. Authenticated by Dr. Riley Payan on 12/27/16 at 15:19. Marla Ya Dec 27, 2016 14:17 Riley Payan DO Dec 27, 2016 15:19
[2016-12-27] MEDS ORDERED: INSULIN DETEMIR 100 UNITS/ML VIAL SQ ONE (14:30)
[2016-12-27] MEDS ORDERED: LANTUSP SQ (20:38)
[2016-12-27] MEDS: INSULIN DETEMIR 100 UNITS/ML VIAL SQ SCH (20:41)
[2016-12-28 06:13] VITALS: BP 116/66; PULSE 77; RESP 16; TEMP 98; O2SAT 99
[2016-12-28] MEDS: INSULIN NovoLIN REGULAR SUPPLEMENTAL SCALE SQ SCH ×4 (06:52→21:00)
[2016-12-28] MEDS: INSULIN DETEMIR 100 UNITS/ML VIAL SQ SCH ×2 (08:54→10:45)
--- NOTE | 2016-12-28 09:52 | HHI.PR ---
Subjective Remarks The patient was resting comfortably in bed. He said that he was going through opiate withdrawals. He requested his 2 mg of Dilaudid. He said he had some cold sweats earlier when his sugar was low. He wanted an increased diet. He was interested in having some Glucerna. Discussed with nursing. Objective Vitals Vital Signs Date Time Temp Pulse Resp B/P (MAP) Pulse Ox O2 Delivery O2 Flow Rate FiO2 12/28/16 06:13 98.0 77 16 116/66 (83) 99 12/27/16 12:35 97.7 74 18 105/60 (75) 96 12/27/16 11:32 65 15 106/74 (85) 98 I/O 12/27/16 12/27/16 12/27/16 12/28/16 12/28/16 12/28/16 06:59 14:59 22:59 06:59 14:59 22:59 Intake Total 3000 ml 480 ml 840 ml 720 ml Balance 3000 ml 480 ml 840 ml 720 ml Intake Oral 480 ml 840 ml 720 ml IV Total 3000 ml 0 ml # Voids 2 1 Result Diagram: 12/26/16180412/26/162048 Objective Remarks GENERAL: This is a well-nourished, well-developed patient, in no apparent distress. SKIN: Warm and dry. Multiple healed and open scab wounds throughout his body bilateral upper extremity and trunk area. HEAD: Normocephalic. No temporal or scalp tenderness. EYES: Pupils equal round and reactive. Extraocular motions intact. No scleral icterus. No injection or drainage. ENT: Nose without bleeding. Throat without erythema. Uvula midline. Airway patent. NECK: Trachea midline. Supple. CARDIOVASCULAR: Regular rate and rhythm without murmurs, gallops, or rubs. RESPIRATORY: Clear to auscultation. Breath sounds equal bilaterally. No wheezes , rales, or rhonchi. GASTROINTESTINAL: Abdomen soft, non-tender, nondistended. No guarding. BS Active x4. MUSCULOSKELETAL: Extremities without clubbing, cyanosis, or edema. NEUROLOGICAL: Awake and alert. Flat affect. Monotone voice. Motor and sensory grossly within normal limits. PSYCH: Slightly flattened affect. Medications and IVs Current Medications Medications (Trade) Dose Ordered Sig/Dangelo Route Start Time Stop Time Status Last Admin (NS Flush) 2 ml UNSCH PRN IVF 8/23/17 18:45 (D50w (Vial) Inj) 50 ml UNSCH PRN IV 12/26/16 22:30 (Glucagon Inj) 1 mg UNSCH PRN OTHER 12/26/16 22:30 (NovoLIN R SUPPLEMENTAL SCALE) 1 ACHS SLIDING SCALE SQ 12/27/16 07:00 12/27/16 20:41 (Tylenol) 650 mg Q4H PRN PO 12/27/16 11:00 (Milk Of Magnesia Liq) 30 ml DAILY PRN PO 12/27/16 11:00 (Mag-Al Plus Susp Liq) 30 ml Q6H PRN PO 12/27/16 11:00 (Levemir Inj) 10 units DAILY SQ 12/28/16 09:29 UNV (Dilaudid) 2 mg TID PRN PO 12/28/16 09:30 UNV A/P Problem List: (1) Hyperglycemia due to type 1 diabetes mellitus ICD Code: E10.65 - Type 1 diabetes mellitus with hyperglycemia Status: Acute (2) Suicidal ideation ICD Code: R45.851 - Suicidal ideations Status: Acute Assessment and Plan Patient is a 31-year-old male with primary medical history of diabetes, anxiety , depression who came into the hospital under Gonzalez act after his father thought that he plans to hang himself. Suicidal Ideation, anxiety, depression ADHD - Managed by psychiatry team Hyperglycemia Type 1 diabetes - Noncompliant with medications. On Lantus at home - Check hemoglobin A1c. Last hemoglobin A1c 10.1 2008 - Glucose level low AM 12/28. Liberalize diet. Decrease Levemir to 10 units daily and monitor. - Insulin sliding scale Novolin - Monitor Accu-Cheks. Monitor for hypoglycemia. - ADA diet Chronic pain Left femur injuries - Reports he is on Dilaudid 2 mg as an outpatient - Will Dilaudid TID for pain control. - physical therapy for low back pain. DVT prop Lovenox, ambulatory Riley Payan DO Dec 28, 2016 09:51
[2016-12-28 11:05] LABS: ANION GAP 9 MEQ/L (5-15); BICARBONATE 24.2 MEQ/L (21.0-32.0); BLOOD UREA NITROGEN 13 MG/DL (7-18); CHLORIDE 100 MEQ/L (98-107); GLOMERULAR FILTRATION RATE 138 ML/MIN (>89); HDL CHOLESTEROL 25.9 MG/DL (40.0-60.0); LDL CHOLESTEROL 84 MG/DL (0-99); POTASSIUM 4.1 MEQ/L (3.5-5.1); SODIUM (NA) 133 MEQ/L (136-145)
[2016-12-28] MEDS: HYDROmorphone HCL 2 MG TAB PO PRN ×4 (11:27→21:58)
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
[2016-12-28] MEDS: ESCITALOPRAM OXALATE 10 MG TAB PO SCH (14:00)
[2016-12-28 16:08] LABS: HEMOGLOBIN A1a 1.2 %; HEMOGLOBIN A1b 1.3 %; HEMOGLOBIN F 2.1 %; HEMOGLOBIN LA1C 2.4 %
[2016-12-28 16:09] LABS: HEMOGLOBIN Ao 73.4 %; HEMOGLOBIN P3 4.9 %
[2016-12-28 18:00] VITALS: BP 110/68; PULSE 84; RESP 16; TEMP 98.2; O2SAT 100
[2016-12-28] MEDS: hydrOXYzine HCL 25 MG TAB PO PRN (20:50)
[2016-12-29] MEDS: HYDROmorphone HCL 2 MG TAB PO PRN ×3 (04:58→20:49)
[2016-12-29] MEDS: hydrOXYzine HCL 25 MG TAB PO PRN ×2 (05:01→20:49)
[2016-12-29 05:57] VITALS: BP 119/77; PULSE 75; RESP 16; TEMP 98.2; O2SAT 100
[2016-12-29] MEDS ORDERED: INSULIN ASPART 1,000 UNITS/10 ML VIAL SQ ONE (07:00)
[2016-12-29] MEDS: INSULIN NovoLIN REGULAR SUPPLEMENTAL SCALE SQ SCH ×4 (07:00→20:47)
[2016-12-29] MEDS: INSULIN DETEMIR 100 UNITS/ML VIAL SQ SCH ×2 (08:20→20:46)
[2016-12-29] MEDS: ESCITALOPRAM OXALATE 10 MG TAB PO SCH (08:36)
[2016-12-29] MEDS ORDERED: IBUPROFEN 600 MG TAB PO PRN (10:00)
--- NOTE | 2016-12-29 10:00 | HHI.PR ---
Subjective Remarks The patient was upset that he had to go back on a diabetic diet. He said he will be a more difficult patient if he doesn't get to eat what he wants. He said the Dilaudid is helping but he feels it wearing off. He said he would be agreeable with trying ibuprofen. Discussed with nursing. Objective Vitals Vital Signs Date Time Temp Pulse Resp B/P (MAP) Pulse Ox O2 Delivery O2 Flow Rate FiO2 12/29/16 05:57 98.2 75 16 119/77 (91) 100 12/28/16 18:00 98.2 84 16 110/68 (82) 100 I/O 12/28/16 12/28/16 12/28/16 12/29/16 12/29/16 12/29/16 07:00 15:00 23:00 07:00 15:00 23:00 Intake Total 720 ml 2400 ml 1200 ml 360 ml Balance 720 ml 2400 ml 1200 ml 360 ml Intake Oral 720 ml 2400 ml 1200 ml 360 ml IV Total 0 ml # Voids 1 3 2 2 Result Diagram: 12/26/16 1805 12/28/16 0830 Objective Remarks GENERAL: This is a well-nourished, well-developed patient, in no apparent distress. SKIN: Warm and dry. Multiple healed and open scab wounds throughout his bilateral upper extremities and trunk. HEAD: Normocephalic. No temporal or scalp tenderness. EYES: Pupils equal round and reactive. Extraocular motions intact. No scleral icterus. No injection or drainage. ENT: Nose without bleeding. Throat without erythema. Uvula midline. Airway patent. NECK: Trachea midline. Supple. CARDIOVASCULAR: Regular rate and rhythm without murmurs, gallops, or rubs. RESPIRATORY: Clear to auscultation. Breath sounds equal bilaterally. No wheezes , rales, or rhonchi. GASTROINTESTINAL: Abdomen soft, non-tender, nondistended. No guarding. BS Active x4. MUSCULOSKELETAL: Extremities without clubbing, cyanosis, or edema. NEUROLOGICAL: Awake and alert. Flat affect. Monotone voice. Motor and sensory grossly within normal limits. PSYCH: Flattened affect. Medications and IVs Current Medications Medications (Trade) Dose Ordered Sig/Dangelo Route Start Time Stop Time Status Last Admin (NS Flush) 2 ml UNSCH PRN IVF 12/26/16 18:45 (D50w (Vial) Inj) 50 ml UNSCH PRN IV 12/26/16 22:30 (Glucagon Inj) 1 mg UNSCH PRN OTHER 12/26/16 22:30 (NovoLIN R SUPPLEMENTAL SCALE) 1 ACHS SLIDING SCALE SQ 12/27/16 07:00 12/28/16 21:00 (Tylenol) 650 mg Q4H PRN PO 12/27/16 11:00 (Milk Of Magnesia Liq) 30 ml DAILY PRN PO 12/27/16 11:00 (Mag-Al Plus Susp Liq) 30 ml Q6H PRN PO 12/27/16 11:00 (Levemir Inj) 10 units DAILY SQ 12/28/16 10:45 12/29/16 08:20 (Dilaudid) 2 mg TID PRN PO 12/28/16 09:30 12/29/16 04:58 (Lexapro) 10 mg DAILY PO 12/28/16 14:00 12/29/16 08:36 (Atarax) 25 mg Q8H PRN PO 12/28/16 13:30 12/29/16 05:01 A/P Problem List: (1) Hyperglycemia due to type 1 diabetes mellitus ICD Code: E10.65 - Type 1 diabetes mellitus with hyperglycemia Status: Acute (2) Suicidal ideation ICD Code: R45.851 - Suicidal ideations Status: Acute Assessment and Plan Patient is a 31-year-old male with primary medical history of diabetes, anxiety , depression who came into the hospital under Gonzalez act after his father thought that he plans to hang himself. Suicidal Ideation, anxiety, depression ADHD - Managed by psychiatry team Hyperglycemia Type 1 diabetes - Noncompliant with medications. On Lantus at home - A1c 14.9%. - Glucose level widely fluctuates. Change Levemir to 10 units BID and monitor. - Insulin sliding scale Novolin - Monitor Accu-Cheks. Monitor for hypoglycemia. - ADA diet. Chronic pain Left femur injuries - Reports he is on Dilaudid 2 mg as an outpatient - Will continue Dilaudid TID for pain control. Ibuprofen for breakthrough pain. - physical therapy for low back pain. DVT prop Lovenox, ambulatory Discharge Planning Per primary Riley Payan DO Dec 29, 2016 10:00
--- NOTE | 2016-12-29 13:04 | HHI.PYPN ---
Subjective Remarks Patient denies suicidal or homicidal ideation, plan or intent. No psychosis. Review of Systems Except as stated in HPI: all other systems reviewed are Neg Objective Alert: Yes [place]: Person (ox4) Mood: Angry, Depressed Affect: Appropriate Memory Intact: Comment (not tested) Hallucinations: Other Delusions: No Delusion Type: Other Suicidal: Ideation (deneis) Homicidal: Ideation (deneis) Insight/Judgment Fair Labs Test 12/29/16 08:16 Random Glucose 410 MG/DL Vitals/IOs Vital Signs Date Time Temp Pulse Resp B/P (MAP) Pulse Ox O2 Delivery O2 Flow Rate FiO2 12/29/16 05:57 98.2 75 16 119/77 (91) 100 12/27/16 07:00 Room Air Intake and Output 12/29/16 12/29/16 12/29/16 07:59 15:59 23:59 Intake Total 360 ml Balance 360 ml Assessment & Plan Problem List: (1) Adjustment disorder with mixed anxiety and depressed mood ICD Codes: F43.23 - Adjustment disorder with mixed anxiety and depressed mood Assessment & Plan Estimated LOS: days observe and evaluate Justification for Cont. Inpt. Faizan Quintanilla MD Dec 29, 2016 13:04
[2016-12-29 17:57] VITALS: BP 114/73; PULSE 64; TEMP 98.3; O2SAT 99
[2016-12-30] MEDS: HYDROmorphone HCL 2 MG TAB PO PRN ×3 (05:24→20:45)
[2016-12-30 06:00] VITALS: BP 114/64; PULSE 63; RESP 16; TEMP 97.7; O2SAT 99
[2016-12-30] MEDS: INSULIN NovoLIN REGULAR SUPPLEMENTAL SCALE SQ SCH ×4 (06:14→21:00)
[2016-12-30] MEDS: ESCITALOPRAM OXALATE 10 MG TAB PO SCH (08:35)
[2016-12-30] MEDS: INSULIN DETEMIR 100 UNITS/ML VIAL SQ SCH (08:41)
--- NOTE | 2016-12-30 10:28 | HHI.PR ---
Subjective Remarks The patient had no acute complaints. He wanted his diet to be more regular. He said ibuprofen hurts his stomach. Discussed with nursing. Objective Vitals Vital Signs Date Time Temp Pulse Resp B/P (MAP) Pulse Ox O2 Delivery O2 Flow Rate FiO2 12/30/16 06:00 97.7 63 16 114/64 (81) 99 12/29/16 17:57 98.3 64 114/73 (87) 99 I/O 12/29/16 12/29/16 12/29/16 12/30/16 12/30/16 12/30/16 06:59 14:59 22:59 06:59 14:59 22:59 Intake Total 360 ml 90 ml 240 ml Balance 360 ml 90 ml 240 ml Intake Oral 360 ml 90 ml 240 ml # Voids 2 1 Result Diagram: 12/26/16 1805 12/29/16 0816 Objective Remarks GENERAL: This is a well-nourished, well-developed patient, in no apparent distress. SKIN: Warm and dry. Multiple healed and open scab wounds throughout his bilateral upper extremities and trunk. HEAD: Normocephalic. No temporal or scalp tenderness. EYES: Pupils equal round and reactive. Extraocular motions intact. No scleral icterus. No injection or drainage. ENT: Nose without bleeding. Throat without erythema. Uvula midline. Airway patent. NECK: Trachea midline. Supple. CARDIOVASCULAR: Regular rate and rhythm without murmurs, gallops, or rubs. RESPIRATORY: Clear to auscultation. Breath sounds equal bilaterally. No wheezes , rales, or rhonchi. GASTROINTESTINAL: Abdomen soft, non-tender, nondistended. No guarding. BS Active x4. MUSCULOSKELETAL: Extremities without clubbing, cyanosis, or edema. NEUROLOGICAL: Awake and alert. Flat affect. Monotone voice. Motor and sensory grossly within normal limits. PSYCH: Flattened affect. Medications and IVs Current Medications Medications (Trade) Dose Ordered Sig/Dangelo Route Start Time Stop Time Status Last Admin (NS Flush) 2 ml UNSCH PRN IVF 12/26/16 18:45 (D50w (Vial) Inj) 50 ml UNSCH PRN IV 12/26/16 22:30 (Glucagon Inj) 1 mg UNSCH PRN OTHER 12/26/16 22:30 (NovoLIN R SUPPLEMENTAL SCALE) 1 ACHS SLIDING SCALE SQ 12/27/16 07:00 12/30/16 06:14 (Tylenol) 650 mg Q4H PRN PO 12/27/16 11:00 (Milk Of Magnesia Liq) 30 ml DAILY PRN PO 12/27/16 11:00 (Mag-Al Plus Susp Liq) 30 ml Q6H PRN PO 12/27/16 11:00 (Dilaudid) 2 mg TID PRN PO 12/28/16 09:30 12/30/16 05:24 (Lexapro) 10 mg DAILY PO 12/28/16 14:00 12/30/16 08:35 (Atarax) 25 mg Q8H PRN PO 12/28/16 13:30 12/29/16 20:49 (Levemir Inj) 10 units BID SQ 12/29/16 21:00 12/30/16 08:41 (Motrin) 600 mg Q8H PRN PO 12/29/16 10:00 12/30/16 09:25 A/P Problem List: (1) Hyperglycemia due to type 1 diabetes mellitus ICD Code: E10.65 - Type 1 diabetes mellitus with hyperglycemia Status: Acute (2) Suicidal ideation ICD Code: R45.851 - Suicidal ideations Status: Acute Assessment and Plan Patient is a 31-year-old male with primary medical history of diabetes, anxiety , depression who came into the hospital under Gonzalez act after his father thought that he plans to hang himself. Suicidal Ideation, anxiety, depression ADHD - Managed by psychiatry team Hyperglycemia Type 1 diabetes - Noncompliant with medications. On Lantus at home - A1c 14.9%. - Glucose level widely fluctuates. Change Levemir to 10 units BID and monitor. Better controlled 12/30. - Insulin sliding scale Novolin - Monitor Accu-Cheks. Monitor for hypoglycemia. - ADA diet. Chronic pain Left femur injuries - Reports he is on Dilaudid 2 mg as an outpatient - Will continue Dilaudid TID for pain control. D/c ibuprofen as it hurts his stomach. - physical therapy for low back pain. DVT prop: Ambulation Discharge Planning Per primary Riley Payan DO Dec 30, 2016 10:28
[2016-12-30] MEDS ORDERED: INSULIN DETEMIR 100 UNITS/ML VIAL SQ SCH ×2 (14:45→21:00)
[2016-12-30 18:27] VITALS: BP 113/68; PULSE 71; RESP 16; TEMP 97.7; O2SAT 100
--- NOTE | 2016-12-30 18:45 | HHI.PYPN ---
Subjective Remarks Continued symptoms of intermittent paranoia and depression. Review of Systems Except as stated in HPI: all other systems reviewed are Neg Objective Alert: Yes [place]: Person (ox4) Mood: Angry, Depressed Affect: Appropriate Memory Intact: Comment (not tested) Hallucinations: Other Delusions: No Delusion Type: Other Suicidal: Ideation (deneis) Homicidal: Ideation (deneis) Insight/Judgment Impaired Vitals/IOs Vital Signs Date Time Temp Pulse Resp B/P (MAP) Pulse Ox O2 Delivery O2 Flow Rate FiO2 12/30/16 18:27 97.7 71 16 113/68 (83) 100 12/27/16 07:00 Room Air Intake and Output 12/30/16 12/30/16 12/31/16 08:00 16:00 00:00 Intake Total 90 ml 600 ml 480 ml Balance 90 ml 600 ml 480 ml Assessment & Plan Problem List: (1) Adjustment disorder with mixed anxiety and depressed mood ICD Codes: F43.23 - Adjustment disorder with mixed anxiety and depressed mood Assessment & Plan Estimated LOS: days continue treatment plan Justification for Cont. Inpt. Reinaa Faizan Edmond MD Dec 30, 2016 18:45
[2016-12-30] MEDS: hydrOXYzine HCL 25 MG TAB PO PRN (20:45)
[2016-12-30] MEDS: DOCUSATE SODIUM 50 MG/SENNA 8.6 MG TAB PO SCH (20:46)
[2016-12-31 05:46] VITALS: BP 118/71; PULSE 73; RESP 16; TEMP 98.3; O2SAT 98
[2016-12-31] MEDS: INSULIN NovoLIN REGULAR SUPPLEMENTAL SCALE SQ SCH (06:38)
[2016-12-31] MEDS: ESCITALOPRAM OXALATE 10 MG TAB PO SCH (08:09)
[2016-12-31] MEDS: DOCUSATE SODIUM 50 MG/SENNA 8.6 MG TAB PO SCH (08:10)
[2016-12-31] MEDS ORDERED: NOVORP2 SQ (08:45)
[2016-12-31] MEDS ORDERED: INSULIN DETEMIR 100 UNITS/ML VIAL SQ SCH (09:00)
[2016-12-31] MEDS ORDERED: ESCI10TA PO (09:04)
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
--- NOTE | 2016-12-31 10:51 | HHI.PR ---
Subjective Remarks The patient was resting comfortably. He was waiting for his ride to pick him up. No acute complaints. Discussed with nursing. Objective Vitals Vital Signs Date Time Temp Pulse Resp B/P (MAP) Pulse Ox O2 Delivery O2 Flow Rate FiO2 12/31/16 05:46 98.3 73 16 118/71 (87) 98 12/30/16 18:27 97.7 71 16 113/68 (83) 100 12/30/16 14:46 17 I/O 12/30/16 12/30/16 12/30/16 12/31/16 12/31/16 12/31/16 06:59 14:59 22:59 06:59 14:59 22:59 Intake Total 90 ml 600 ml 1200 ml 360 ml 600 ml Balance 90 ml 600 ml 1200 ml 360 ml 600 ml Intake Oral 90 ml 600 ml 1200 ml 360 ml 600 ml # Voids 1 1 2 Result Diagram: 12/29/16 0816 Objective Remarks GENERAL: This is a well-nourished, well-developed patient, in no apparent distress. SKIN: Warm and dry. Multiple healed and open scab wounds throughout his bilateral upper extremities and trunk. HEAD: Normocephalic. No temporal or scalp tenderness. EYES: Pupils equal round and reactive. Extraocular motions intact. No scleral icterus. No injection or drainage. ENT: Nose without bleeding. Throat without erythema. Uvula midline. Airway patent. NECK: Trachea midline. Supple. CARDIOVASCULAR: Regular rate and rhythm without murmurs, gallops, or rubs. RESPIRATORY: Clear to auscultation. Breath sounds equal bilaterally. No wheezes , rales, or rhonchi. GASTROINTESTINAL: Abdomen soft, non-tender, nondistended. No guarding. BS Active x4. MUSCULOSKELETAL: Extremities without clubbing, cyanosis, or edema. NEUROLOGICAL: Awake and alert. Flat affect. Monotone voice. Motor and sensory grossly within normal limits. PSYCH: Slightly flattened affect. Medications and IVs Current Medications Medications (Trade) Dose Ordered Sig/Dangelo Route Start Time Stop Time Status Last Admin (NS Flush) 2 ml UNSCH PRN IVF 12/26/16 18:45 (D50w (Vial) Inj) 50 ml UNSCH PRN IV 12/26/16 22:30 (Glucagon Inj) 1 mg UNSCH PRN OTHER 12/26/16 22:30 (NovoLIN R SUPPLEMENTAL SCALE) 1 ACHS SLIDING SCALE SQ 12/27/16 07:00 12/31/16 06:38 (Tylenol) 650 mg Q4H PRN PO 12/27/16 11:00 (Milk Of Magnesia Liq) 30 ml DAILY PRN PO 12/27/16 11:00 (Mag-Al Plus Susp Liq) 30 ml Q6H PRN PO 12/27/16 11:00 (Dilaudid) 2 mg TID PRN PO 12/28/16 09:30 12/30/16 20:45 (Lexapro) 10 mg DAILY PO 12/28/16 14:00 12/31/16 08:09 (Atarax) 25 mg Q8H PRN PO 12/28/16 13:30 12/30/16 20:45 (Jaleesa-Colace) 1 tab BID PO 12/30/16 21:00 (Levemir Inj) 10 units HS SQ 12/30/16 21:00 12/30/16 21:11 (Levemir Inj) 15 units DAILY SQ 12/31/16 09:00 12/31/16 08:10 A/P Problem List: (1) Hyperglycemia due to type 1 diabetes mellitus ICD Code: E10.65 - Type 1 diabetes mellitus with hyperglycemia Status: Acute (2) Suicidal ideation ICD Code: R45.851 - Suicidal ideations Status: Acute Assessment and Plan Patient is a 31-year-old male with primary medical history of diabetes, anxiety , depression who came into the hospital under Gonzalez act after his father thought that he plans to hang himself. Suicidal Ideation, anxiety, depression ADHD - Managed by psychiatry team Hyperglycemia Type 1 diabetes - Noncompliant with medications. On Lantus at home as well as a sliding scale. - A1c 14.9%. - Glucose level widely fluctuates. Changed Levemir to 15 units daily and 10 units HS. - Insulin sliding scale Novolin - Monitor Accu-Cheks. Monitor for hypoglycemia. - ADA diet. Chronic pain Left femur injuries - Reports he is on Dilaudid 2 mg as an outpatient - Will continue Dilaudid TID for pain control. D/c ibuprofen as it hurts his stomach. - physical therapy for low back pain. DVT prop: Ambulation Discharge Planning Per primary Riley Payan DO Dec 31, 2016 10:51
== END 2016-12-31 11:40 | disposition home or self-care (01) | DRG 882 ==
LOC: NEPC 17:47 → NEDA 12-27 10:57 → H4EA 12-27 11:55
PROVIDERS: ADMIT Student in an Organized Health Care Education/Training Program; ATTEND Student in an Organized Health Care Education/Training Program
DX: F43.23 Adjustment disorder with mixed anxiety and depressed mood (principal); E10.22 Type 1 diabetes mellitus with diabetic chronic kidney disease; R45.851 Suicidal ideations; E10.65 Type 1 diabetes mellitus with hyperglycemia; F98.8 Other specified behavioral and emotional disorders with onset usually occurring in childhood and adolescence; G89.29 Other chronic pain; F17.210 Nicotine dependence, cigarettes, uncomplicated; M54.5 Low back pain; N18.9 Chronic kidney disease, unspecified; Z91.14 Patient's other noncompliance with medication regimen; Z79.4 Long term (current) use of insulin
CPT/HCPCS: 36600; 80048; 80053; 80061; 81001; 82010; 82805; 82947; 82948; 83036; 83690; 83735; 85025; 93005; 96372; J1815; J7030; J7120

== ENCOUNTER 2017-03-14 16:42 | Inpatient (IN) | payer OTHER ==
[~2017-03-14] VITALS: Ht 177.8 cm; Wt 61.8 kg
[~2017-03-14 16:42] MED LIST changes: +CHLO25CA9 PO; +DIAZ10 PO; +DILA2TAB4 PO; +DILA4TAB10 PO; +FOLI1TAB6 PO; -LANTUSP SQ; +LEVEMIR SQ; -METHY10 PO; +RITA20TA PO; +THERTAB15 PO; +THIA100 PO
[2017-03-14 17:31] VITALS: BP 113/56; PULSE 80; RESP 17; TEMP 98.3; O2SAT 98
[2017-03-14] MEDS ORDERED: GLUCAGON 1 MG/ML VIAL OTHER PRN (20:00)
[2017-03-14] MEDS ORDERED: ALUMINUM/MAGNESIUM/SIMETH 30 ML CUP PO PRN (20:00)
[2017-03-14] MEDS ORDERED: DEXTROSE 50% IN WATER 50 ML VIAL(D50) IV PUSH PRN (20:00)
[2017-03-14] MEDS ORDERED: LORazepam 2 MG/ML VIAL IM PRN (20:00)
[2017-03-14] MEDS ORDERED: MAGNESIUM HYDROXIDE SUSP 30 ML CUP PO PRN (20:00)
[2017-03-14] MEDS: INSULIN ASPART SUPPLEMENTAL SCALE SQ SCH (20:53)
[2017-03-14] MEDS: REMOVE OLD NICOTINE PATCH T-DERMAL SCH (21:00)
[2017-03-14] MEDS: LORazepam 1 MG TAB PO PRN (21:16)
[2017-03-14] MEDS: ACETAMINOPHEN 325 MG TAB PO PRN (21:16)
[2017-03-15] MEDS: LORazepam 1 MG TAB PO PRN ×4 (03:52→22:08)
[2017-03-15 06:15] VITALS: BP 100/57; PULSE 97; RESP 17; TEMP 97.9; O2SAT 96
[2017-03-15] MEDS: INSULIN ASPART SUPPLEMENTAL SCALE SQ SCH ×4 (08:20→21:23)
[2017-03-15] MEDS: NICOTINE 21 MG/24 HR PATCH T-DERMAL SCH (08:20)
[2017-03-15 10:48] LABS: ANION GAP 14 MEQ/L (5-15); BICARBONATE 21.2 MEQ/L (21.0-32.0); BLOOD UREA NITROGEN 27 MG/DL (7-18); CHLORIDE 91 MEQ/L (98-107); GLOMERULAR FILTRATION RATE 63 ML/MIN (>89); HDL CHOLESTEROL 39.8 MG/DL (40.0-60.0); LDL CHOLESTEROL 125 MG/DL (0-99); POTASSIUM 4.2 MEQ/L (3.5-5.1); SODIUM (NA) 126 MEQ/L (136-145)
[2017-03-15] MEDS: INSULIN DETEMIR 100 UNITS/ML VIAL SQ SCH ×2 (11:00→21:23)
[2017-03-15] MEDS ORDERED: DEXTROSE 50% IN WATER 50 ML VIAL(D50) IV PUSH PRN (11:30)
[2017-03-15] MEDS ORDERED: GLUCAGON 1 MG/ML VIAL OTHER PRN (11:30)
[2017-03-15] MEDS ORDERED: PILL SPLITTER OTHER PRN (11:30)
[2017-03-15] MEDS: ESCITALOPRAM OXALATE 10 MG TAB PO SCH (12:18)
[2017-03-15] MEDS: chlordiazePOXIDE 25 MG CAP PO PRN ×2 (12:18→21:41)
[2017-03-15] MEDS: FOLIC ACID 1 MG TAB PO SCH (12:18)
[2017-03-15] MEDS: THIAMINE HCL 100 MG TAB PO SCH (12:18)
[2017-03-15] MEDS: MULTIVITAMIN TAB PO SCH (12:18)
[2017-03-15] MEDS: buPROPion HCL 150 MG SUSTAINED RELEASE TAB PO SCH (12:18)
[2017-03-15 13:17] LABS: HEMOGLOBIN A1a 1.2 %; HEMOGLOBIN A1b 1.5 %; HEMOGLOBIN Ao 70.4 %; HEMOGLOBIN F 2.2 %; HEMOGLOBIN LA1C 5.4 %; HEMOGLOBIN P3 5.6 %
--- NOTE | 2017-03-15 15:13 | HHI.HP ---
Provisional Diagnosis Admission Date Mar 14, 2017 at 17:10 [place] I. Adjustment disorder with depressed mood; rule out substance induced mood disorder Certification of Person's Competence To Provide Express and Informed Consent I have personally examined Ignacio Bedolla , a person being served at [facility] on, Mar 15, 2017 15:12. Express and informed consent means consent voluntarily given in writing, by a competent person, after sufficient explanation and disclosure of the subject matter involved to enable the person to make a knowing and willful decision without any element of force, fraud, deceit, duress, or other form of constraint or coercion. This person is 18 years of age or older, is not now known to be incompetent to consent to treatment with a guardian advocate, and does not have a health care surrogate or proxy currently making medical treatment decisions. I have found this person to be one of the following: [x] Competent to provide express and informed consent, as defined above, for voluntary admission to this facility and is competent to provide express and informed consent for treatment. He/she has the consistent capacity to make well reasoned, willful, and knowing decisions concerning his or her medical or mental health treatment. The person fully and consistently understands the purpose of the admission for examination/placement and is fully capable of personally exercising all rights assured [place] [] Incompetent to provide express and informed consent to voluntary admission, and this is incompetent to provide express and informed consent to treatment. The person must be transferred to involuntary status and a petition for a guardian advocate filed with the Circuit Court. [] Refusing to provide express and informed consent to voluntary admission but is competent to provide express and informed consent for treatment. The person must be discharged or transferred to involuntary status. Form shall be completed within 24 hours of a person's arrival at the receiving facility and filed in the clinical record of each person: 1. Admitted on a voluntary basis 2. Permitted to provide express and informed consent to his/her own treatment 3. Allowed to transfer from involuntary to voluntary status 4. Prior to permitting a person to consent to his or her own treatment after having been previously found incompetent to consent to treatment. History of Present Illness Capacity: Has Capacity HPI Patient is a 31-year-old man, single, domiciled parents, past psychiatric history of depression, anxiety, ADD as per patient, previous psychiatric hospitalizations (last time being in December 2016 in [place]), no prior suicide attempts or self-injurious behavior, continued to outpatient psychiatrist Dr. Sherwood and [facility], was brought into the ER the Gonzalez act by police as patient had reportedly was making suicidal statements if approached and was admitted to the intensive care unit for DKA which psychiatry was consulted for evaluation and was noted to have a bizarre delusions of having been infested with worm which he was subsequently transferred to the inpatient psychiatry for further evaluation and management. Patient was found lying in hospital bed, cooperative today with interview. Patient states that DKA he came to the hospital she was sleeping and also bickering with his father over money, his substance use abuse issues and his fathers alcoholism. He states that one night prior to his presentation he had reportedly taken a Jessica which he states had never done before. She also reports that he had been taking more of his pain medications than as directed recently for the past 4 days. Patient reports that his recent DKA was due to not being able to afford a new insulin bottle as his previous one had broken. Patient denies ever having made suicidal statements at the time he was taken in by police but states that his depression has been up and down. He states that recently he had been upset with his father after being like to and this and that he was supposed to have an given a business which was passed on to someone else. He states that he has also been feeling stressed by the way that his father controls his mother. He reports no changes sleep lately increased appetite, change in energy, decrease in concentration and feeling depressed but not endorsing suicidal ideations. Patient states that he feels that perhaps the drugs that he recently took could have made him see the worms. Patient reports this is his admission he had not seen any worms here in the hospital. Patient reports he has been feeling helpless and hopeless for the last 4 days. Patient states that at this time he feels good denies SI, HI, AVH or delusions. Psychiatric family history: father with alcohol use disorder, alcohol at committed suicide and possibly an aunt. Past psychiatric history: previous psychiatric diagnoses of depression, anxiety , ADD as per patient, 3 previous psychiatric hospitalizations (last being here [facility]), denies previous suicide attempt, denies history of self- injurious behaviors. Previous mental health services, with Dr. Sherwood at [facility] last seen 1 month ago. Previous medication trials include Adderall, Klonopin, Xanax, Strattera, Concerta, Vyvanse, Wellbutrin, Zoloft, and was recently prescribed Adderall, venlafaxine, and Valium. Patient reports he has been inconsistent with this medication regimen. Substance use history: Patient reports remote history of heroin use (smoked) and cocaine use. He reports recent use of marijuana about a year ago, amphetamines, and Xanax. Patient states use Jessica for the first time as stated above. 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 Legal history: Patient reports having been in custodial for 5 years (did not specify charge but states that it was not a violent crime) Review of Systems Except as stated in HPI: all other systems reviewed are Neg Past Psych History Violence risk - others (6 mos) Low Violence risk - self (6 mos) Moderate due to recent endorsement of depressive symptoms Substance Abuse History Drugs/Alcohol past 12 months Patient reports remote history of heroin use (smoked) and cocaine use. He reports recent use of marijuana about a year ago, amphetamines, and Xanax. Patient states use Jessica for the first time as stated above. Past Family Social History Coded Allergies: No Known Allergies (Verified Allergy, Unknown, 03/10/17) Active Scripts Insulin Detemir Inj (Levemir Inj) 1,000 unit/ 10 ML Vial, 15 UNITS SQ BID for Blood Sugar Management, #6 VIAL 0 Refills Do not mix with any other Insulin. Prov:Ignacio Roque DO 03/14/17 Multiple Vitamin (Thera/Beta-Carotene) 1 Tab Tab, 1 TAB PO DAILY for Nutritional Supplement, #30 TAB Prov:Ignacio Roque DO 03/14/17 Thiamine HCl (Gnp Vitamin B-1) 100 Mg Tab, 100 MG PO DAILY for Nutritional Supplement, #30 TAB Prov:Ignacio Roque DO 03/14/17 Folic Acid (Folic Acid) 1 Mg Tablet, 1 MG PO DAILY for Nutritional Supplement, # 30 TAB Prov:Ignacio Roque DO 03/14/17 Chlordiazepoxide HCl (Chlordiazepoxide HCl) 25 Mg Capsule, 50 MG PO Q6H Y for WITHDRAWAL, #120 CAP Prov:Ignacio RoqueBoyd DO 03/14/17 Hydromorphone (Dilaudid) 2 Mg Tab, 1 MG PO Q6H Y for WITHDRAWALS PAIN >2, #30 TAB Prov:Ignacio RoqueBoyd DO 03/14/17 Discontinued Reported Medications Hydromorphone (Dilaudid) 4 Mg Tab, 4 MG PO Q6H Y for Pain Management, TAB 0 Refills 12/26/16 Diazepam (Valium) 10 Mg Tab, 10 MG PO TID Y for ANXIETY, TAB 0 Refills 12/26/16 Methylphenidate IR (Ritalin IR) 20 Mg Tab, 20 MG PO TIDAC, #90 TAB 0 Refills 12/26/16 Insulin Glargine Inj (Lantus Inj) 1,000 Unit/10 Ml Vial, 47 UNITS SQ HS for Blood Sugar Management, VIAL 0 Refills 12/26/16 Insulin Human Regular Inj (Humulin R Inj) 1,000 Unit/10 Ml Vial, 1 UNITS SQ ONCE for Blood Sugar Management, #10 ML 0 Refills 12/26/16 Gabapentin (Gabapentin) 600 Mg Tab, 600 MG PO BID, #60 TAB 0 Refills 12/26/16 Gemfibrozil (Gemfibrozil) 600 Mg Tab, 600 MG PO DAILY, #60 TAB 0 Refills Take 30 minutes prior to breakfast and dinner. 12/26/16 Discontinued Scripts Insulin Human Regular Inj (Novolin R Inj) 1,000 Unit/10 Ml Vial, 2-10 UNITS SQ DIRECTED for Blood Sugar Management, #10 ML 0 Refills Max dose at bedtime:( )units; sugars less than 150,(0) units; sugars 150-199,(2)unit; sugars 200-249,(4)units; sugars 250-299,(6) units; sugars 300-349,(8)units; sugars equal to or greater than 350,(10)units Prov:Riley Payan DO 12/31/16 Escitalopram (Escitalopram) 10 Mg Tab, 10 MG PO DAILY for health for 30 Days, # 30 TAB Prov:Erick Marrero MD 12/31/16 Current Medications Medications (Trade) Dose Ordered Sig/Dangelo Route Start Time Stop Time Status Last Admin (Ativan) 1 mg Q6H PRN PO 03/14/17 20:00 03/15/17 10:02 (Ativan Inj) 1 mg Q6H PRN IM 03/14/17 20:00 (Tylenol) 650 mg Q4H PRN PO 03/14/17 20:00 03/14/17 21:16 (Milk Of Magnesia Liq) 30 ml DAILY PRN PO 03/14/17 20:00 (Mag-Al Plus Susp Liq) 30 ml Q6H PRN PO 03/14/17 20:00 (Habitrol 21 Mg Patch.24 Hr) 1 patch DAILY T-DERMAL 03/15/17 09:00 Miscellaneous Information 1 HS T-DERMAL 03/14/17 21:00 (Lexapro) 10 mg DAILY PO 03/15/17 11:30 03/15/17 12:18 (Wellbutrin Sr) 150 mg DAILY PO 03/15/17 11:45 03/15/17 12:18 (Librium) 50 mg Q6H PRN PO 03/15/17 11:00 03/15/17 12:18 (Dilaudid) 1 mg Q6H PRN PO 03/15/17 11:00 (Theragran) 1 tab DAILY PO 03/15/17 11:30 03/15/17 12:18 (Folate) 1 mg DAILY PO 03/15/17 11:30 03/15/17 12:18 (Levemir Inj) 15 units BID SQ 03/15/17 11:30 03/15/17 11:00 (Vitamin B1) 100 mg DAILY PO 03/15/17 11:30 03/15/17 12:18 (NovoLOG SUPPLEMENTAL SCALE) 1 ACHS SLIDING SCALE SQ 03/15/17 12:00 03/15/17 12:19 (Pill Splitter) 1 ea UNSCH PRN OTHER 03/15/17 11:30 (D50w (Vial) Inj) 50 ml UNSCH PRN IV PUSH 03/15/17 11:30 (Glucagon Inj) 1 mg UNSCH PRN OTHER 03/15/17 11:30 Family Psych History father with alcohol use disorder, alcohol at committed suicide and possibly an aunt. 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 Patient's Strengths (min. 2) Verbal and communicative Physical Exam Patient not noted to be in acute distress, noted to have been habitus, no gross motor abnormalities, several abrasions on his extremities, no tremors or EPS, no noted psychomotor retardation or agitation. Vital Signs Vital Signs Date Time Temp Pulse Resp B/P (MAP) Pulse Ox O2 Delivery O2 Flow Rate FiO2 03/15/17 06:15 97.9 97 17 100/57 (71) 96 I/O 03/15/17 03/15/17 03/16/17 08:00 16:00 00:00 Intake Total 960 ml 600 ml Balance 960 ml 600 ml Lab Results Labs reviewed. Test 03/15/17 09:55 Blood Urea Nitrogen 27 MG/DL Creatinine 1.34 MG/DL Random Glucose 567 MG/DL Calcium Level 9.0 MG/DL Sodium Level 126 MEQ/L Potassium Level 4.2 MEQ/L Chloride Level 91 MEQ/L Carbon Dioxide Level 21.2 MEQ/L Anion Gap 14 MEQ/L Estimat Glomerular Filtration Rate 63 ML/MIN Triglycerides Level 205 MG/DL Cholesterol Level 206 MG/DL LDL Cholesterol 125 MG/DL HDL Cholesterol 39.8 MG/DL Cholesterol/HDL Ratio 5.17 RATIO Mental Status Examination Appearance: Disheveled Consciousness: Alert Orientation: Person, Place, Date/Time Speech: Unremarkable Language: Adequate Fund of Knowledge: Adequate Attention and Concentration: Adequate Memory: Unremarkable Mood: Sad Affect: Blunt Thought Process & Associations: Linear Thought Content: Appropriate Hallucination Type: None Delusion Type: None Suicidal Ideation: No Suicidal Plan: No Suicidal Intention: No Homicidal Ideation: No Homicidal Plan: No Homicidal Intention: No Insight: Poor Judgment: Poor Assessment & Plan Problem List: (1) Adjustment disorder with mixed anxiety and depressed mood ICD Codes: F43.23 - Adjustment disorder with mixed anxiety and depressed mood Assessment & Plan Patient is a 31-year-old man who carries a diagnosis of depression, anxiety with prior psychiatric hospitalizations, no prior suicide attempts or self-injurious behavior or significant history of some polysubstance use disorder who was brought in under Gonzalez act due to patient having stated wanting to hurt himself if police had approached him and was found to have DKA was admitted to the medical floor with subsequent transfer to the inpatient psychiatry unit for further evaluation and management. Patient this time endorses depressive symptoms but denies any suicidal ideations, no longer endorsing bizarre delusions of having worms which likely secondary to symptoms related to recent intoxication with Jessica. Patient will be restarted on escitalopram 10 mg by mouth daily along with bupropion XL 150 mg by mouth daily. Recommendations as per primary medical team. Discharge planning in progress Discharge Planning At risk for further decompensation event lower level of care Erick Marrero MD Mar 15, 2017 15:13
[2017-03-15] MEDS: HYDROmorphone HCL 2 MG TAB PO PRN ×2 (15:21→21:41)
--- NOTE | 2017-03-15 15:54 | PD.CONS ---
HPI Service [facility] Consult Requested By FLOR RETANA MD Reason for Consult MEDICAL MANAGEMENT Primary Care Physician No Primary Care Physician Diagnoses: (1) Diabetes (2) Hyperglycemia due to type 1 diabetes mellitus (3) Noncompliance (4) Adjustment disorder with mixed anxiety and depressed mood (5) Drug-seeking behavior (6) Adjustment reaction with anxiety and depression (7) Dehydration, severe (8) Diabetes mellitus with nonketotic hyperosmolarity (9) Hyperglycemia due to type 1 diabetes mellitus (10) Substance abuse (11) Suicidal ideation (12) IVDU (intravenous drug user) History of Present Illness Patient is a 31-year-old male who was recently in the ICU on an insulin drip due to DKA for uncontrolled diabetes and medical noncompliance. Patient had been under a Gonzalez act and had been brought in under police custody. Has diabetes does not uses insulin very well positive urine drug screen previously for benzodiazepine given insulin and started on insulin drip transferred to ICU Patient has a history of shooting up IV pain medications Uses chronic narcotics and shoots them up Demarcus asked to help regarding medical management we'll make sure he is on his diabetic medications and continue on sliding scale coverage continue on the Levemir twice a day and tweak as needed Review of Systems Constitutional: DENIES: Diaphoretic episodes, Fatigue, Fever, Weight gain, Weight loss, Chills, Dizziness, Change in appetite Endocrine: DENIES: Heat/cold intolerance, Polydipsia, Polyuria Eyes: DENIES: Blurred vision, Diplopia, Eye inflammation Ears, nose, mouth, throat: DENIES: Tinnitus, Hearing loss, Vertigo, Nasal discharge, Oral lesions Respiratory: DENIES: Apneas, Cough, Snoring, Wheezing, Hemoptysis, Sputum production Cardiovascular: DENIES: Chest pain, Palpitations, Syncope, Dyspnea on Exertion Gastrointestinal: DENIES: Abdominal pain, Black stools, Bloody stools, Constipation Genitourinary: DENIES: Sexual dysfunction, Urinary frequency, Urinary incontinence Musculoskeletal: DENIES: Joint pain, Muscle aches, Stiffness Integumentary: COMPLAINS OF: Abnormal pigmentation, DENIES: Nail changes, Pruritus, Rash Hematologic/lymphatic: DENIES: Bruising, Lymphadenopathy Immunologic/allergic: DENIES: Eczema, Urticaria Neurologic: DENIES: Abnormal gait, Headache, Localized weakness, Paresthesias, Seizures, Speech Problems Psychiatric: COMPLAINS OF: Anxiety, Mood changes, Depression, Agitation, DENIES : Confusion Past Family Social History Allergies: Coded Allergies: No Known Allergies (Verified Allergy, Unknown, 03/10/17) Past Medical History Diabetes mellitus IV drug abuse Pancreatitis Depression anxiety and chronic pain History of renal failure in the past resolved History of urinary symptoms Chronic pain Past Surgical History Appendectomy Rods in the left leg Circumcision Reported Medications Reported Meds & Active Scripts Active Levemir Inj (Insulin Detemir) 1,000 unit/ 10 ML Vial 15 Units SQ BID Do not mix with any other Insulin. Thera/Beta-Carotene (Multiple Vitamin) 1 Tab Tab 1 Tab PO DAILY Gnp Vitamin B-1 (Thiamine HCl) 100 Mg Tab 100 Mg PO DAILY Folic Acid 1 Mg Tablet 1 Mg PO DAILY Chlordiazepoxide HCl 25 Mg Capsule 50 Mg PO Q6H PRN Dilaudid (Hydromorphone HCl) 2 Mg Tab 1 Mg PO Q6H PRN Active Ordered Medications Current Medications Lorazepam (Ativan) 1 mg Q6H PRN PO MODERATE TO SEVERE ANXIETY Last administered on 03/15/17 15:41; Start 03/14/17 at 20:00 Lorazepam (Ativan Inj) 1 mg Q6H PRN IM MODERATE TO SEVERE ANXIETY; Start at 20:00 Acetaminophen (Tylenol) 650 mg Q4H PRN PO Pain 1-5 or Temp >101F Last administered on 03/14/17 21:16; Start 03/14/17 at 20:00 Magnesium Hydroxide (Milk Of Magnesia Liq) 30 ml DAILY PRN PO CONSTIPATION; Start 03/14/17 at 20:00 Al Hydrox/Mg Hydrox/Simethicone (Mag-Al Plus Susp Liq) 30 ml Q6H PRN PO DYSPEPSIA; Start 03/14/17 at 20:00 Nicotine (Habitrol 21 Mg Patch.24 Hr) 1 patch DAILY T-DERMAL ; Start 03/15/17 at 09:00 Miscellaneous Information 1 HS T-DERMAL ; Start 03/14/17 at 21:00 Dextrose (D50w (Vial) Inj) 50 ml UNSCH PRN IV PUSH HYPOGLYCEMIA-SEE COMMENTS; Start 03/14/17 at 20:00; Stop 03/15/17 at 11:26; Status DC Glucagon (Glucagon Inj) 1 mg UNSCH PRN OTHER HYPOGLYCEMIA-SEE COMMENTS; Start 03/14/17 at 20:00; Stop 03/15/17 at 11:26; Status DC Insulin Aspart (NovoLOG SUPPLEMENTAL SCALE) 1 ACHS SLIDING SCALE SQ Last administered on 03/15/17 08:20; Start 03/14/17 at 21:00; Stop 03/15/17 at 10: 56; Status DC Escitalopram Oxalate (Lexapro) 10 mg DAILY PO Last administered on 03/15/17 12:18; Start 03/15/17 at 11:30 Bupropion HCl (Wellbutrin Sr) 150 mg DAILY PO Last administered on 03/15/17 12:18; Start 03/15/17 at 11:45 Chlordiazepoxide (Librium) 50 mg Q6H PRN PO WITHDRAWAL Last administered on 12:18; Start 03/15/17 at 11:00 Folic Acid (Folate) 1 mg DAILY PO ; Start 03/16/17 at 09:00; Stop 03/16/17 at 09:00; Status DC Hydromorphone HCl (Dilaudid) 1 mg Q6H PRN PO WITHDRAWALS PAIN >2 Last administered on 03/15/17 15:21; Start 03/15/17 at 11:00 Insulin Detemir (Levemir Inj) 15 units BID SQ ; Start 03/15/17 at 21:00; Stop 03/15/17 at 21:00; Status DC Thiamine HCl (Vitamin B1) 100 mg DAILY PO ; Start 03/16/17 at 09:00; Stop 03/22 at 09:00; Status DC Multivitamins (Theragran) 1 tab DAILY PO Last administered on 03/15/17 12:18 ; Start 03/15/17 at 11:30 Folic Acid (Folate) 1 mg DAILY PO Last administered on 03/15/17 12:18; Start 03/15/17 at 11:30 Insulin Detemir (Levemir Inj) 15 units BID SQ Last administered on 03/15/17 11:00; Start 03/15/17 at 11:30 Thiamine HCl (Vitamin B1) 100 mg DAILY PO Last administered on 03/15/17 12:18 ; Start 03/15/17 at 11:30 Insulin Aspart (NovoLOG SUPPLEMENTAL SCALE) 1 ACHS SLIDING SCALE SQ Last administered on 11/10/17at 12:19; Start 03/15/17 at 12:00 Miscellaneous (Pill Splitter) 1 ea UNSCH PRN OTHER SEE LABEL COMMENTS; Start 03/15/17 at 11:30 Dextrose (D50w (Vial) Inj) 50 ml UNSCH PRN IV PUSH HYPOGLYCEMIA - SEE COMMENTS ; Start 03/15/17 at 11:30 Glucagon (Glucagon Inj) 1 mg UNSCH PRN OTHER HYPOGLYCEMIA-SEE COMMENTS; Start 03/15/17 at 11:30 Family History Psychiatric history Social History Tobacco abuse IV drug abuse Skin popping Alcohol abuse Physical Exam Vital Signs Vital Signs Date Time Temp Pulse Resp B/P (MAP) Pulse Ox O2 Delivery O2 Flow Rate FiO2 03/15/17 06:15 97.9 97 17 100/57 (71) 96 03/14/17 17:31 98.3 80 17 113/56 (75) 98 Physical Exam GENERAL: This is a well-nourished, well-developed patient, in no apparent distress. SKIN: No rashes, ecchymoses or lesions. Cool and dry. Multiple areas of bruising on skin popping area HEAD: Atraumatic. Normocephalic. No temporal or scalp tenderness. EYES: Pupils equal round and reactive. Extraocular motions intact. No scleral icterus. No injection or drainage. ENT: Nose without bleeding, purulent drainage or septal hematoma. Throat without erythema, tonsillar hypertrophy or exudate. Uvula midline. Airway patent. NECK: Trachea midline. No JVD or lymphadenopathy. Supple, nontender, no meningeal signs. CARDIOVASCULAR: Regular rate and rhythm without murmurs, gallops, or rubs. S1 and S2 no S3 or S4 RESPIRATORY: Clear to auscultation. Breath sounds equal bilaterally. No wheezes , rales, or rhonchi. GASTROINTESTINAL: Abdomen soft, non-tender, nondistended. No hepato-splenomegaly , or palpable masses. No guarding. MUSCULOSKELETAL: Extremities without clubbing, cyanosis, or edema. No joint tenderness, effusion, or edema noted. No calf tenderness. Negative Homans sign bilaterally. NEUROLOGICAL: Awake and alert. Cranial nerves II through XII intact. Motor and sensory grossly within normal limits. Five out of 5 muscle strength in all muscle groups. Normal speech. Insight and judgment limited Mood and behavior somewhat appropriate Laboratory Laboratory Tests Test 03/15/17 09:55 Blood Urea Nitrogen 27 Creatinine 1.34 Random Glucose 567 Calcium Level 9.0 Sodium Level 126 Potassium Level 4.2 Chloride Level 91 Carbon Dioxide Level 21.2 Anion Gap 14 Estimat Glomerular Filtration Rate 63 Hemoglobin A1c 13.8 Triglycerides Level 205 Cholesterol Level 206 LDL Cholesterol 125 HDL Cholesterol 39.8 Cholesterol/HDL Ratio 5.17 Result Diagram: 03/15/17 0955 Assessment and Plan Problem List: (1) IVDU (intravenous drug user) ICD Code: F19.90 - Other psychoactive substance use, unspecified, uncomplicated (2) Drug-seeking behavior ICD Code: Z76.5 - Malingerer [conscious simulation] (3) Adjustment disorder with mixed anxiety and depressed mood ICD Code: F43.23 - Adjustment disorder with mixed anxiety and depressed mood (4) Hyperglycemia due to type 1 diabetes mellitus ICD Code: E10.65 - Type 1 diabetes mellitus with hyperglycemia (5) Noncompliance ICD Code: Z91.19 - Patient's noncompliance with other medical treatment and regimen (6) Diabetes ICD Code: E11.9 - Type 2 diabetes mellitus without complications Assessment and Plan Diabetes mellitus with diabetic ketoacidosis recently treated in ICU Noncompliance with diabetes Have restarted patient's insulin that never got restarted after he was transferred out of the ICU to psychiatry --blood sugars therefore have been elevated Adjust sliding scale coverage We'll need his Levemir adjusted up to get his sugars to a tighter control Chronic pain continue on low-dose Dilaudid orally only IV drug abuse recommend cessation Tobacco abuse recommend nicotine patch as needed Psychiatric disorders per psychiatrist Code Status Full code Discussed Condition With Discussed with patient and RN Ignacio Roque DO Mar 15, 2017 15:54
[2017-03-15 18:00] VITALS: BP 91/53; PULSE 87; RESP 16; TEMP 98.2; O2SAT 97
[2017-03-15] MEDS: REMOVE OLD NICOTINE PATCH T-DERMAL SCH (21:00)
[2017-03-15] MEDS ORDERED: INSULIN DETEMIR 100 UNITS/ML VIAL SQ SCH (21:00)
[2017-03-16 05:02] VITALS: BP 99/57; PULSE 84; RESP 18; TEMP 98.4; O2SAT 95
[2017-03-16 06:28] LABS: AUTOMATED NEUTROPHIL # 8.2 TH/MM3 (1.8-7.7); BASOPHIL # 0.1 TH/MM3 (0-0.2); BASOPHIL % 0.9 % (0.0-2.0); EOSINOPHIL # 0.2 TH/MM3 (0-0.4); EOSINOPHIL % 1.5 % (0.0-4.0); HEMATOCRIT 36.1 % (39.0-51.0); HEMO FLAGS DIFF FINAL; LYMPH % 35.4 % (9.0-44.0); LYMPHOCYTE # 5.1 TH/MM3 (1.0-4.8); MEAN CELL VOLUME 86.4 FL (80.0-100.0); MEAN CORPUSCULAR HEMOGLOBIN 29.9 PG (27.0-34.0); MEAN CORPUSCULAR HGB CONC 34.6 % (32.0-36.0); MONO % 4.9 % (0.0-8.0); NEUT % 57.3 % (16.0-70.0); PLATELET COUNT 209 TH/MM3 (150-450); RED BLOOD COUNT 4.18 MIL/MM3 (4.50-5.90); RED CELL DISTRIBUTION WIDTH 14.2 % (11.6-17.2); WHITE BLOOD COUNT 14.3 TH/MM3 (4.0-11.0)
[2017-03-16 07:37] LABS: ALKALINE PHOSPHATASE 88 U/L (45-117); ALT (GPT) 37 U/L (12-78); ANION GAP 7 MEQ/L (5-15); BICARBONATE 28.9 MEQ/L (21.0-32.0); CHLORIDE 102 MEQ/L (98-107); GLOMERULAR FILTRATION RATE 153 ML/MIN (>89); MAGNESIUM 1.8 MG/DL (1.5-2.5); POTASSIUM 4.1 MEQ/L (3.5-5.1); SODIUM (NA) 138 MEQ/L (136-145)
[2017-03-16 07:40] LABS: AST (GOT) 20 U/L (15-37); BLOOD UREA NITROGEN 22 MG/DL (7-18); TOTAL BILIRUBIN ADULT 0.2 MG/DL (0.2-1.0)
[2017-03-16] MEDS: INSULIN ASPART SUPPLEMENTAL SCALE SQ SCH ×4 (08:00→21:00)
[2017-03-16] MEDS: buPROPion HCL 150 MG SUSTAINED RELEASE TAB PO SCH (08:33)
[2017-03-16] MEDS: FOLIC ACID 1 MG TAB PO SCH (08:33)
[2017-03-16] MEDS: MULTIVITAMIN TAB PO SCH (08:33)
[2017-03-16] MEDS: THIAMINE HCL 100 MG TAB PO SCH (08:33)
[2017-03-16] MEDS: INSULIN DETEMIR 100 UNITS/ML VIAL SQ SCH ×2 (08:33→21:00)
[2017-03-16] MEDS: ESCITALOPRAM OXALATE 10 MG TAB PO SCH (08:33)
[2017-03-16] MEDS: NICOTINE 21 MG/24 HR PATCH T-DERMAL SCH (08:37)
[2017-03-16] MEDS: LORazepam 1 MG TAB PO PRN ×3 (08:41→22:41)
[2017-03-16] MEDS: HYDROmorphone HCL 2 MG TAB PO PRN ×3 (08:41→22:41)
[2017-03-16] MEDS ORDERED: FOLIC ACID 1 MG TAB PO SCH (09:00)
[2017-03-16] MEDS ORDERED: THIAMINE HCL 100 MG TAB PO SCH (09:00)
[2017-03-16] MEDS: chlordiazePOXIDE 25 MG CAP PO PRN ×2 (10:49→18:25)
--- NOTE | 2017-03-16 15:30 | HHI.PYPN ---
Subjective Remarks Patient was seen and case discussed with nursing. Pt is perseverant on changing his diet. Minimizes his behavior at home. States he no longer has suicidal ideation. Supportive therapy done concerning opiate addiction. Mental Status Examination Appearance: Disheveled Consciousness: Alert Orientation: Person, Place, Date/Time Speech: Unremarkable Language: Adequate Fund of Knowledge: Adequate Attention and Concentration: Adequate Memory: Unremarkable Mood: Sad Affect: Irritable Thought Process & Associations: Linear Thought Content: Appropriate Hallucination Type: None Delusion Type: None Suicidal Ideation: No Suicidal Plan: No Suicidal Intention: No Homicidal Ideation: No Homicidal Plan: No Homicidal Intention: No Insight: Poor Judgment: Poor Results Labs Test 03/16/17 06:11 White Blood Count 14.3 TH/MM3 Red Blood Count 4.18 MIL/MM3 Hemoglobin 12.5 GM/DL Hematocrit 36.1 % Mean Corpuscular Volume 86.4 FL Mean Corpuscular Hemoglobin 29.9 PG Mean Corpuscular Hemoglobin Concent 34.6 % Red Cell Distribution Width 14.2 % Platelet Count 209 TH/MM3 Mean Platelet Volume 8.6 FL Neutrophils (%) (Auto) 57.3 % Lymphocytes (%) (Auto) 35.4 % Monocytes (%) (Auto) 4.9 % Eosinophils (%) (Auto) 1.5 % Basophils (%) (Auto) 0.9 % Neutrophils # (Auto) 8.2 TH/MM3 Lymphocytes # (Auto) 5.1 TH/MM3 Monocytes # (Auto) 0.7 TH/MM3 Eosinophils # (Auto) 0.2 TH/MM3 Basophils # (Auto) 0.1 TH/MM3 CBC Comment DIFF FINAL Differential Comment Blood Urea Nitrogen 22 MG/DL Creatinine 0.62 MG/DL Random Glucose 86 MG/DL Total Protein 6.7 GM/DL Albumin 2.8 GM/DL Calcium Level 8.7 MG/DL Phosphorus Level 3.4 MG/DL Magnesium Level 1.8 MG/DL Alkaline Phosphatase 88 U/L Aspartate Amino Transf (AST/SGOT) 20 U/L Alanine Aminotransferase (ALT/SGPT) 37 U/L Total Bilirubin 0.2 MG/DL Sodium Level 138 MEQ/L Potassium Level 4.1 MEQ/L Chloride Level 102 MEQ/L Carbon Dioxide Level 28.9 MEQ/L Anion Gap 7 MEQ/L Estimat Glomerular Filtration Rate 153 ML/MIN Vitals/IOs Vital Signs Date Time Temp Pulse Resp B/P (MAP) Pulse Ox O2 Delivery O2 Flow Rate FiO2 03/16/17 05:02 98.4 84 18 99/57 (71) 95 Intake and Output 03/16/17 03/16/17 03/17/17 08:00 16:00 00:00 Intake Total 480 ml 360 ml Balance 480 ml 360 ml Assessment & Plan Problem List: (1) Adjustment disorder with mixed anxiety and depressed mood ICD Codes: F43.23 - Adjustment disorder with mixed anxiety and depressed mood Assessment & Plan Continue current treatment plan Justification for Cont. Inpt. Patient would decompensate in a less restricting setting. Tuan Nicole DO Mar 16, 2017 15:30
[2017-03-16 18:00] VITALS: BP 117/68; PULSE 78; RESP 18; TEMP 98.5; O2SAT 100
--- NOTE | 2017-03-16 19:08 | HHI.PR ---
Subjective Remarks Patient states that he feels very hungry and is requesting to have his diet changed. patient c/o back pain which he states that started after a TV fell over him and he fell over his back over some TV equipment . denies fevers/chills. denies cp/sob. Bp low last night. PAtient is requesting to have his dilaudid dose increased. Objective Vitals Vital Signs Date Time Temp Pulse Resp B/P (MAP) Pulse Ox O2 Delivery O2 Flow Rate FiO2 03/16/17 18:00 98.5 78 18 117/68 (84) 100 03/16/17 05:02 98.4 84 18 99/57 (71) 95 03/15/17 22:41 20 I/O 03/15/17 03/15/17 03/15/17 03/16/17 03/16/17 03/16/17 07:00 15:00 23:00 07:00 15:00 23:00 Intake Total 960 ml 600 ml 1440 ml 120 ml 720 ml 240 ml Balance 960 ml 600 ml 1440 ml 120 ml 720 ml 240 ml Intake Oral 960 ml 600 ml 1440 ml 120 ml 720 ml 240 ml # Voids 2 3 2 # Bowel Movements 1 Result Diagram: 03/16/17 0611 03/16/17 0611 Objective Remarks AAOx3, sitting in a chair Clear lungs BL S1S2 RRR, no MRG abdomen soft, nt, nd there is tenderness over lumbar spine no edema in lower extremities Medications and IVs Current Medications Medications (Trade) Dose Ordered Sig/Dangelo Route Start Time Stop Time Status Last Admin (Ativan) 1 mg Q6H PRN PO 03/14/17 20:00 03/16/17 22:41 (Ativan Inj) 1 mg Q6H PRN IM 03/14/17 20:00 (Tylenol) 650 mg Q4H PRN PO 03/14/17 20:00 03/14/17 21:16 (Milk Of Magnesia Liq) 30 ml DAILY PRN PO 03/14/17 20:00 (Mag-Al Plus Susp Liq) 30 ml Q6H PRN PO 03/14/17 20:00 (Habitrol 21 Mg Patch.24 Hr) 1 patch DAILY T-DERMAL 03/15/17 09:00 Miscellaneous Information 1 HS T-DERMAL 03/14/17 21:00 (Lexapro) 10 mg DAILY PO 03/15/17 11:30 03/16/17 08:33 (Wellbutrin Sr) 150 mg DAILY PO 03/15/17 11:45 03/16/17 08:33 (Librium) 50 mg Q6H PRN PO 03/15/17 11:00 03/16/17 18:25 (Dilaudid) 1 mg Q6H PRN PO 03/15/17 11:00 03/16/17 22:41 (Theragran) 1 tab DAILY PO 03/15/17 11:30 03/16/17 08:33 (Folate) 1 mg DAILY PO 03/15/17 11:30 03/16/17 08:33 (Levemir Inj) 15 units BID SQ 03/15/17 11:30 03/16/17 21:00 (Vitamin B1) 100 mg DAILY PO 03/15/17 11:30 03/16/17 08:33 (NovoLOG SUPPLEMENTAL SCALE) 1 ACHS SLIDING SCALE SQ 03/15/17 12:00 03/16/17 21:00 (Pill Splitter) 1 ea UNSCH PRN OTHER 03/15/17 11:30 (D50w (Vial) Inj) 50 ml UNSCH PRN IV PUSH 03/15/17 11:30 (Glucagon Inj) 1 mg UNSCH PRN OTHER 03/15/17 11:30 (Lipitor) 10 mg HS PO 03/16/17 21:00 03/16/17 21:00 A/P Problem List: (1) IVDU (intravenous drug user) ICD Code: F19.90 - Other psychoactive substance use, unspecified, uncomplicated (2) Drug-seeking behavior ICD Code: Z76.5 - Malingerer [conscious simulation] (3) Adjustment disorder with mixed anxiety and depressed mood ICD Code: F43.23 - Adjustment disorder with mixed anxiety and depressed mood (4) Hyperglycemia due to type 1 diabetes mellitus ICD Code: E10.65 - Type 1 diabetes mellitus with hyperglycemia (5) Noncompliance ICD Code: Z91.19 - Patient's noncompliance with other medical treatment and regimen (6) Diabetes ICD Code: E11.9 - Type 2 diabetes mellitus without complications Assessment and Plan Diabetes mellitus with diabetic ketoacidosis recently treated in ICU Noncompliance with diabetes Blood sugars very elevated and uncontrolled. Continue basal insulin Levemir, will add prandial insulin Novolog and Continue SSI. Adjust sliding scale coverage Chronic pain continue on low-dose Dilaudid orally only IV drug abuse recommend cessation Tobacco abuse recommend nicotine patch as needed Lipid profile with elevated cholesterol and LDL > 100 will start patient on lipitor. Psychiatric disorders per psychiatrist Patient c/o back pain after falling over some equipment. Will order CT lumbar spine in am. Continue pain control with Dilaudid orally. Discharge Planning Not medically cleared for DC. Wm Wilson MD Mar 16, 2017 19:08
[2017-03-16] MEDS: REMOVE OLD NICOTINE PATCH T-DERMAL SCH (21:00)
[2017-03-16] MEDS: ATORVASTATIN 10 MG TAB PO SCH (21:00)
[2017-03-17] MEDS: LORazepam 1 MG TAB PO PRN ×2 (05:30→21:36)
[2017-03-17] MEDS: HYDROmorphone HCL 2 MG TAB PO PRN ×3 (05:31→21:36)
[2017-03-17 06:18] VITALS: BP 100/69; PULSE 71; RESP 17; TEMP 97.6; O2SAT 100
[2017-03-17] MEDS: INSULIN ASPART SUPPLEMENTAL SCALE SQ SCH ×4 (08:00→21:00)
[2017-03-17] MEDS: INSULIN ASPART 1,000 UNITS/10 ML VIAL SQ SCH ×3 (08:00→16:50)
[2017-03-17] MEDS ORDERED: INSULIN DETEMIR 100 UNITS/ML VIAL SQ SCH (09:00)
[2017-03-17] MEDS: INSULIN DETEMIR 100 UNITS/ML VIAL SQ SCH ×2 (09:00→21:00)
[2017-03-17] MEDS: NICOTINE 21 MG/24 HR PATCH T-DERMAL SCH (09:00)
[2017-03-17] MEDS: THIAMINE HCL 100 MG TAB PO SCH (09:33)
[2017-03-17] MEDS: MULTIVITAMIN TAB PO SCH (09:33)
[2017-03-17] MEDS: buPROPion HCL 150 MG SUSTAINED RELEASE TAB PO SCH (09:33)
[2017-03-17] MEDS: ESCITALOPRAM OXALATE 10 MG TAB PO SCH (09:34)
[2017-03-17] MEDS: FOLIC ACID 1 MG TAB PO SCH (09:34)
[2017-03-17] MEDS: ACETAMINOPHEN 325 MG TAB PO PRN (09:52)
[2017-03-17] MEDS: chlordiazePOXIDE 25 MG CAP PO PRN ×2 (11:12→22:49)
[2017-03-17 11:32] LABS: AUTOMATED NEUTROPHIL # 4.5 TH/MM3 (1.8-7.7); BASOPHIL # 0.1 TH/MM3 (0-0.2); BASOPHIL % 0.9 % (0.0-2.0); EOSINOPHIL # 0.1 TH/MM3 (0-0.4); EOSINOPHIL % 1.8 % (0.0-4.0); HEMATOCRIT 34.8 % (39.0-51.0); HEMO FLAGS DIFF FINAL; LYMPH % 34.4 % (9.0-44.0); LYMPHOCYTE # 2.7 TH/MM3 (1.0-4.8); MEAN CORPUSCULAR HEMOGLOBIN 30.4 PG (27.0-34.0); MEAN CORPUSCULAR HGB CONC 34.2 % (32.0-36.0); MONO % 5.7 % (0.0-8.0); NEUT % 57.2 % (16.0-70.0); PLATELET COUNT 188 TH/MM3 (150-450); RED BLOOD COUNT 3.92 MIL/MM3 (4.50-5.90); RED CELL DISTRIBUTION WIDTH 14.8 % (11.6-17.2); WHITE BLOOD COUNT 7.9 TH/MM3 (4.0-11.0)
[2017-03-17 12:13] LABS: ALKALINE PHOSPHATASE 92 U/L (45-117); ALT (GPT) 43 U/L (12-78); ANION GAP 7 MEQ/L (5-15); AST (GOT) 36 U/L (15-37); BICARBONATE 30.3 MEQ/L (21.0-32.0); BLOOD UREA NITROGEN 17 MG/DL (7-18); CHLORIDE 98 MEQ/L (98-107); GLOMERULAR FILTRATION RATE 99 ML/MIN (>89); MAGNESIUM 1.7 MG/DL (1.5-2.5); POTASSIUM 4.7 MEQ/L (3.5-5.1); SODIUM (NA) 135 MEQ/L (136-145); TOTAL BILIRUBIN ADULT 0.2 MG/DL (0.2-1.0)
--- NOTE | 2017-03-17 15:36 | HHI.PYPN ---
Subjective Remarks Patient was seen and case discussed with nursing. Pt is irritable with multiple complaints including a belief he has worm infection. he feels "anxious" and is seeking more benzodiazepines. Psychoeducation was done about his drug use and opiate/benzo combination and pt subsequently refuses atarax. Poorly motivated to get off controlled substances. Poor insight. Claims he never had SI and denies them today. Mental Status Examination Appearance: Disheveled Consciousness: Alert Orientation: Person, Place, Date/Time Speech: Unremarkable Language: Adequate Fund of Knowledge: Adequate Attention and Concentration: Adequate Memory: Unremarkable Mood: Sad, Oppositional Affect: Irritable Thought Process & Associations: Linear Thought Content: Appropriate Hallucination Type: None Delusion Type: None Suicidal Ideation: No Suicidal Plan: No Suicidal Intention: No Homicidal Ideation: No Homicidal Plan: No Homicidal Intention: No Insight: Poor Judgment: Poor Results Labs Test 03/17/17 11:06 White Blood Count 7.9 TH/MM3 Red Blood Count 3.92 MIL/MM3 Hemoglobin 11.9 GM/DL Hematocrit 34.8 % Mean Corpuscular Volume 89.0 FL Mean Corpuscular Hemoglobin 30.4 PG Mean Corpuscular Hemoglobin Concent 34.2 % Red Cell Distribution Width 14.8 % Platelet Count 188 TH/MM3 Mean Platelet Volume 8.6 FL Neutrophils (%) (Auto) 57.2 % Lymphocytes (%) (Auto) 34.4 % Monocytes (%) (Auto) 5.7 % Eosinophils (%) (Auto) 1.8 % Basophils (%) (Auto) 0.9 % Neutrophils # (Auto) 4.5 TH/MM3 Lymphocytes # (Auto) 2.7 TH/MM3 Monocytes # (Auto) 0.4 TH/MM3 Eosinophils # (Auto) 0.1 TH/MM3 Basophils # (Auto) 0.1 TH/MM3 CBC Comment DIFF FINAL Differential Comment Blood Urea Nitrogen 17 MG/DL Creatinine 0.91 MG/DL Random Glucose 405 MG/DL Total Protein 6.9 GM/DL Albumin 2.8 GM/DL Calcium Level 8.8 MG/DL Phosphorus Level 3.8 MG/DL Magnesium Level 1.7 MG/DL Alkaline Phosphatase 92 U/L Aspartate Amino Transf (AST/SGOT) 36 U/L Alanine Aminotransferase (ALT/SGPT) 43 U/L Total Bilirubin 0.2 MG/DL Sodium Level 135 MEQ/L Potassium Level 4.7 MEQ/L Chloride Level 98 MEQ/L Carbon Dioxide Level 30.3 MEQ/L Anion Gap 7 MEQ/L Estimat Glomerular Filtration Rate 99 ML/MIN Vitals/IOs Vital Signs Date Time Temp Pulse Resp B/P (MAP) Pulse Ox O2 Delivery O2 Flow Rate FiO2 03/17/17 06:18 97.6 71 17 100/69 (79) 100 Intake and Output 03/17/17 03/17/17 03/18/17 08:00 16:00 00:00 Intake Total 240 ml 480 ml Balance 240 ml 480 ml Assessment & Plan Problem List: (1) Adjustment disorder with mixed anxiety and depressed mood ICD Codes: F43.23 - Adjustment disorder with mixed anxiety and depressed mood Assessment & Plan Continue medication treatment as indicated. Justification for Cont. Inpt. Pt would decompensate in a less restrictive setting Tuan Nicole DO Mar 17, 2017 15:36
[2017-03-17 18:00] VITALS: BP 110/65; PULSE 84; RESP 18; TEMP 97.4; O2SAT 100
--- NOTE | 2017-03-17 18:14 | HHI.PR ---
Subjective Remarks Blood sugars labile patient c/o back pain Objective Vitals Vital Signs Date Time Temp Pulse Resp B/P (MAP) Pulse Ox O2 Delivery O2 Flow Rate FiO2 03/17/17 06:18 97.6 71 17 100/69 (79) 100 03/16/17 23:41 20 I/O 03/16/17 03/16/17 03/16/17 03/17/17 03/17/17 03/17/17 07:00 15:00 23:00 07:00 15:00 23:00 Intake Total 120 ml 720 ml 960 ml 240 ml 480 ml Balance 120 ml 720 ml 960 ml 240 ml 480 ml Intake Oral 120 ml 720 ml 960 ml 240 ml 480 ml # Voids 2 3 3 Result Diagram: 03/17/17 1106 03/17/17 1106 Imaging Last Impressions Lumbar Spine CT 03/17/17 0000 Signed Impressions: Service Date/Time: Friday, March 17, 2017 13:32 - CONCLUSION: 1. No significant lumbar spine abnormality is identified. 2. There is a 2 mm nonobstructing right renal stone. Milo Kraus MD Objective Remarks AAOx3, sitting in a chair Clear lungs BL S1S2 RRR, no MRG abdomen soft, nt, nd there is tenderness over lumbar spine no edema in lower extremities Medications and IVs Current Medications Medications (Trade) Dose Ordered Sig/Dangelo Route Start Time Stop Time Status Last Admin (Ativan) 1 mg Q6H PRN PO 03/14/17 20:00 03/17/17 05:30 (Ativan Inj) 1 mg Q6H PRN IM 03/14/17 20:00 (Tylenol) 650 mg Q4H PRN PO 03/14/17 20:00 03/17/17 09:52 (Milk Of Magnesia Liq) 30 ml DAILY PRN PO 03/14/17 20:00 (Mag-Al Plus Susp Liq) 30 ml Q6H PRN PO 03/14/17 20:00 (Habitrol 21 Mg Patch.24 Hr) 1 patch DAILY T-DERMAL 03/15/17 09:00 Miscellaneous Information 1 HS T-DERMAL 03/14/17 21:00 (Lexapro) 10 mg DAILY PO 03/15/17 11:30 03/17/17 09:34 (Wellbutrin Sr) 150 mg DAILY PO 03/15/17 11:45 03/17/17 09:33 (Librium) 50 mg Q6H PRN PO 03/15/17 11:00 03/17/17 11:12 (Dilaudid) 1 mg Q6H PRN PO 03/15/17 11:00 03/17/17 12:49 (Theragran) 1 tab DAILY PO 03/15/17 11:30 03/17/17 09:33 (Folate) 1 mg DAILY PO 03/15/17 11:30 03/17/17 09:34 (Vitamin B1) 100 mg DAILY PO 03/15/17 11:30 03/17/17 09:33 (NovoLOG SUPPLEMENTAL SCALE) 1 ACHS SLIDING SCALE SQ 03/15/17 12:00 03/17/17 11:58 (Pill Splitter) 1 ea UNSCH PRN OTHER 03/15/17 11:30 (D50w (Vial) Inj) 50 ml UNSCH PRN IV PUSH 03/15/17 11:30 (Glucagon Inj) 1 mg UNSCH PRN OTHER 03/15/17 11:30 (Lipitor) 10 mg HS PO 03/16/17 21:00 03/16/17 21:00 (NovoLOG INJ) 7 units TIDAC SQ 03/17/17 08:00 03/17/17 16:50 (Levemir Inj) 15 units BID SQ 03/17/17 09:00 03/17/17 09:00 A/P Problem List: (1) IVDU (intravenous drug user) ICD Code: F19.90 - Other psychoactive substance use, unspecified, uncomplicated (2) Drug-seeking behavior ICD Code: Z76.5 - Malingerer [conscious simulation] (3) Adjustment disorder with mixed anxiety and depressed mood ICD Code: F43.23 - Adjustment disorder with mixed anxiety and depressed mood (4) Hyperglycemia due to type 1 diabetes mellitus ICD Code: E10.65 - Type 1 diabetes mellitus with hyperglycemia (5) Noncompliance ICD Code: Z91.19 - Patient's noncompliance with other medical treatment and regimen (6) Diabetes ICD Code: E11.9 - Type 2 diabetes mellitus without complications Assessment and Plan Diabetes mellitus with diabetic ketoacidosis recently treated in ICU Noncompliance with diabetes Blood sugars very elevated and uncontrolled. Continue basal insulin Levemir, will add prandial insulin Novolog and Continue SSI. Adjust sliding scale coverage Chronic pain continue on low-dose Dilaudid orally only IV drug abuse recommend cessation Tobacco abuse recommend nicotine patch as needed Lipid profile with elevated cholesterol and LDL > 100 ---> started on lipitor Psychiatric disorders per psychiatrist Patient c/o back pain after falling over some equipment. CT lumbar spine does not show any significant lumbar spine abnormality. 2 mm non obstructing stone. Continue Dilaudid as needed. Discharge Planning Not medically cleared for DC. Wm Wilson MD Mar 17, 2017 18:14
--- NOTE | 2017-03-17 18:57 | RADRPT ---
EXAM DATE/TIME: 03/17/2017 13:32 [facility] COMPARISON: No previous studies available for comparison. INDICATIONS : Back pain. RADIATION DOSE: 35.86 CTDIvol (mGy) MEDICAL HISTORY : Pancreatitis. Renal failure. Diabetes. SURGICAL HISTORY : Appendectomy. ENCOUNTER: Initial ACUITY: 1 day PAIN SCALE: 8/10 LOCATION: Bilateral lower back TECHNIQUE: Volumetric scanning of the lumbar spine was performed. Multiplanar reconstructions in the sagittal, coronal and oblique axial planes were performed. Using automated exposure control and adjustment of the mA and/or kV according to patient size, radiation dose was kept as low as reasonably achievable t o obtain optimal diagnostic quality images. DICOM format image data is available electronically for review and comparison. FINDINGS: VERTEBRAE: Normal vertebral body height. No fracture or compression deformity. ALIGNMENT: There is no anterolisthesis or retrolisthesis. T12-L1: No disc herniation, canal stenosis, or neural foraminal stenosis. L1-L2: No disc herniation, canal stenosis, or neural foraminal stenosis. L2-L3: No disc herniation, canal stenosis, or neural foraminal stenosis. L3-L4: No disc herniation, canal stenosis, or neural foraminal stenosis. L4-L5: No disc herniation, canal stenosis, or neural foraminal stenosis. L5-S1: No disc herniation, canal stenosis, or neural foraminal stenosis. There is a 2 mm nonobstructing right renal stone and there is an area of increased density within the left upper pole renal cortex. CONCLUSION: 1. No significant lumbar spine abnormality is identified. 2. There is a 2 mm nonobstructing right renal stone. Milo Kraus MD on March 17, 2017 at 18:52 Board Certified Radiologist. This report was verified electronically.
[2017-03-17] MEDS: REMOVE OLD NICOTINE PATCH T-DERMAL SCH (21:00)
[2017-03-17] MEDS: ATORVASTATIN 10 MG TAB PO SCH (21:35)
[2017-03-18 06:24] VITALS: BP 100/57; PULSE 73; RESP 17; TEMP 97.6; O2SAT 99
[2017-03-18] MEDS: HYDROmorphone HCL 2 MG TAB PO PRN ×2 (06:29→12:00)
[2017-03-18] MEDS: LORazepam 1 MG TAB PO PRN (06:29)
[2017-03-18] MEDS: INSULIN ASPART SUPPLEMENTAL SCALE SQ SCH ×2 (08:00→11:39)
[2017-03-18] MEDS: INSULIN ASPART 1,000 UNITS/10 ML VIAL SQ SCH ×2 (08:00→11:39)
[2017-03-18] MEDS: ESCITALOPRAM OXALATE 10 MG TAB PO SCH (08:24)
[2017-03-18] MEDS: MULTIVITAMIN TAB PO SCH (08:24)
[2017-03-18] MEDS: THIAMINE HCL 100 MG TAB PO SCH (08:24)
[2017-03-18] MEDS: FOLIC ACID 1 MG TAB PO SCH (08:24)
[2017-03-18] MEDS: buPROPion HCL 150 MG SUSTAINED RELEASE TAB PO SCH (08:24)
[2017-03-18] MEDS: INSULIN DETEMIR 100 UNITS/ML VIAL SQ SCH (08:24)
[2017-03-18] MEDS: NICOTINE 21 MG/24 HR PATCH T-DERMAL SCH (08:25)
[2017-03-18] MEDS ORDERED: THERTAB15 PO (11:59)
[2017-03-18] MEDS ORDERED: ESCI10TA PO (11:59)
[2017-03-18] MEDS ORDERED: LEVEMIR SQ (11:59)
[2017-03-18] MEDS ORDERED: FOLI1TAB6 PO (11:59)
[2017-03-18] MEDS ORDERED: BUPR150CR PO (11:59)
[2017-03-18] MEDS ORDERED: THIA100 PO (11:59)
[2017-03-18] MEDS ORDERED: LIPI10TA PO (11:59)
[2017-03-18] MEDS ORDERED: NOVOLOGP2 SQ (11:59)
--- NOTE | 2017-03-18 12:32 | RADRPT ---
EXAM DATE/TIME: 03/18/2017 12:13 [facility] COMPARISON: No previous studies available for comparison. INDICATIONS : Palpable, red area in left chest. MEDICAL HISTORY : Pancreatitis. Renal failure. Diabetes. SURGICAL HISTORY : Appendectomy. Orthopedic surgery, right knee and hip. ENCOUNTER: Initial ACUITY: 1 month PAIN SCORE: 0/10 LOCATION: Left chest AREA EVALUATED: Left chest. FINDINGS: Soft tissue mass anterior chest without fluid. This could be inflammatory. CONCLUSION: Soft tissue mass as described above. Ignacio Forte MD FACR on March 18, 2017 at 12:30 Board Certified Radiologist. This report was verified electronically.
[2017-03-18] MEDS ORDERED: CEPH-461 PO (13:14)
--- NOTE | 2017-03-18 13:15 | HHI.PR ---
Subjective Remarks back pain controlled denies cp/sob wants to go home c/o chest mass Objective Vitals Vital Signs Date Time Temp Pulse Resp B/P (MAP) Pulse Ox O2 Delivery O2 Flow Rate FiO2 03/18/17 06:24 97.6 73 17 100/57 (71) 99 03/17/17 18:00 97.4 84 18 110/65 (80) 100 I/O 03/17/17 03/17/17 03/17/17 03/18/17 03/18/17 03/18/17 07:00 15:00 23:00 07:00 15:00 23:00 Intake Total 240 ml 480 ml 2640 ml 360 ml Balance 240 ml 480 ml 2640 ml 360 ml Intake Oral 240 ml 480 ml 2640 ml 360 ml # Voids 3 6 3 Result Diagram: 03/17/17 1106 03/17/17 1106 Imaging Last Impressions Soft Tissue Ultrasound 03/18/17 0000 Signed Impressions: Service Date/Time: Saturday, March 18, 2017 12:13 - CONCLUSION: Soft tissue mass as described above. Ignacio Forte MD FACR Lumbar Spine CT 03/17/17 0000 Signed Impressions: Service Date/Time: Friday, March 17, 2017 13:32 - CONCLUSION: 1. No significant lumbar spine abnormality is identified. 2. There is a 2 mm nonobstructing right renal stone. Milo Kraus MD Objective Remarks AAOx3, sitting in a chair Clear lungs BL S1S2 RRR, no MRG abdomen soft, nt, nd there is tenderness over lumbar spine no edema in lower extremities Medications and IVs Current Medications Medications (Trade) Dose Ordered Sig/Dangelo Route Start Time Stop Time Status Last Admin (Ativan) 1 mg Q6H PRN PO 03/14/17 20:00 03/18/17 06:29 (Ativan Inj) 1 mg Q6H PRN IM 03/14/17 20:00 (Tylenol) 650 mg Q4H PRN PO 03/14/17 20:00 03/17/17 09:52 (Milk Of Magnesia Liq) 30 ml DAILY PRN PO 03/14/17 20:00 (Mag-Al Plus Susp Liq) 30 ml Q6H PRN PO 03/14/17 20:00 (Habitrol 21 Mg Patch.24 Hr) 1 patch DAILY T-DERMAL 03/15/17 09:00 Miscellaneous Information 1 HS T-DERMAL 03/14/17 21:00 (Lexapro) 10 mg DAILY PO 03/15/17 11:30 03/18/17 08:24 (Wellbutrin Sr) 150 mg DAILY PO 03/15/17 11:45 03/18/17 08:24 (Librium) 50 mg Q6H PRN PO 03/15/17 11:00 03/17/17 22:49 (Dilaudid) 1 mg Q6H PRN PO 03/15/17 11:00 03/18/17 12:00 (Theragran) 1 tab DAILY PO 03/15/17 11:30 03/18/17 08:24 (Folate) 1 mg DAILY PO 03/15/17 11:30 03/18/17 08:24 (Vitamin B1) 100 mg DAILY PO 03/15/17 11:30 03/18/17 08:24 (NovoLOG SUPPLEMENTAL SCALE) 1 ACHS SLIDING SCALE SQ 03/15/17 12:00 03/18/17 11:39 (Pill Splitter) 1 ea UNSCH PRN OTHER 03/15/17 11:30 (D50w (Vial) Inj) 50 ml UNSCH PRN IV PUSH 03/15/17 11:30 (Glucagon Inj) 1 mg UNSCH PRN OTHER 03/15/17 11:30 (Lipitor) 10 mg HS PO 03/16/17 21:00 03/17/17 21:35 (NovoLOG INJ) 7 units TIDAC SQ 03/17/17 08:00 03/18/17 11:39 (Levemir Inj) 15 units BID SQ 03/17/17 09:00 03/18/17 08:24 Urinary Catheter: No Vascular Central Line Catheter: No A/P Problem List: (1) IVDU (intravenous drug user) ICD Code: F19.90 - Other psychoactive substance use, unspecified, uncomplicated (2) Drug-seeking behavior ICD Code: Z76.5 - Malingerer [conscious simulation] (3) Adjustment disorder with mixed anxiety and depressed mood ICD Code: F43.23 - Adjustment disorder with mixed anxiety and depressed mood (4) Hyperglycemia due to type 1 diabetes mellitus ICD Code: E10.65 - Type 1 diabetes mellitus with hyperglycemia (5) Noncompliance ICD Code: Z91.19 - Patient's noncompliance with other medical treatment and regimen (6) Diabetes ICD Code: E11.9 - Type 2 diabetes mellitus without complications Assessment and Plan Diabetes mellitus with diabetic ketoacidosis recently treated in ICU Noncompliance with diabetes Blood sugar control improving. Continue basal insulin Levemir, will add prandial insulin Novolog and Continue SSI. Adjust sliding scale coverage Chronic pain continue on low-dose Dilaudid orally only IV drug abuse recommend cessation Tobacco abuse recommend nicotine patch as needed Lipid profile with elevated cholesterol and LDL > 100 ---> started on lipitor Psychiatric disorders per psychiatrist Patient c/o back pain after falling over some equipment. CT lumbar spine does not show any significant lumbar spine abnormality. 2 mm non obstructing stone. Continue Dilaudid as needed. Chest mass noted on anterior chest, non tender. Soft tissue US ordered and described above without fluid collection, more consistent with inflammatory tissue. Patient advised to fu with primary care physician for follow up of this. Will start the patient on oral keflex. Discharge Planning Not medically cleared for DC. Wm Wilson MD Mar 18, 2017 13:14
--- NOTE | 2017-03-18 13:54 | PD.TTN ---
Patient Problems 1. Discharge planning 2. Medication compliance 3. Knowledge deficit 4. Lack of coping skills Progress Toward Goals Provider Present: Dr. Earl Marrero Provider Input: Per doctor, if patient is medically cleared he will be dc to his parents home Nurse(s) Input: Per nurse patient is eating, taking his medication, and will obtain a scan of the tissue on his abdomen prior to being discharged. Psychiatric Counselors Present: KIKI Lee Psych Therapist Input: Patient will be schedule with an outpatient follow-up with his PCP/ Dr. Barahona Group Spec/RT/OT/WEISS Present: Karlo Marin OT Group Spec/RT/OT/WEISS Input: Patient has not attended groups Documentation Scribe: KIKI Lee Teaching Recipient: Patient, Primary Caregiver Ashley Moffett Mar 18, 2017 13:54
[2017-03-18] MEDS ORDERED: CEPHALEXIN MONOHYDRATE 500 MG CAP PO SCH (14:00)
--- NOTE | 2017-03-18 19:11 | HHI.DS ---
Psychiatry Discharge Summary Inpatient Psychiatric care?: Yes Advance Directive: No Reason Not Provided: Due to Patient Condition Mental Health AdvanceDirective: No Health Care Proxy: No Admission Admission Date Mar 14, 2017 at 17:10 Admission Diagnosis: (1) Adjustment disorder with mixed anxiety and depressed mood ICD Code: F43.23 - Adjustment disorder with mixed anxiety and depressed mood Brief History Patient is a 31-year-old man, single, domiciled parents, past psychiatric history of depression, anxiety, ADD as per patient, previous psychiatric hospitalizations (last time being in December 2016 in [place]), no prior suicide attempts or self-injurious behavior, continued to outpatient psychiatrist Dr. Sherwood and [facility], was brought into the ER the [place] act by police as patient had reportedly was making suicidal statements if approached and was admitted to the intensive care unit for DKA which psychiatry was consulted for evaluation and was noted to have a bizarre delusions of having been infested with worm which he was subsequently transferred to the inpatient psychiatry for further evaluation and management. Patient was found lying in hospital bed, cooperative today with interview. Patient states that DKA he came to the hospital she was sleeping and also bickering with his father over money, his substance use abuse issues and his fathers alcoholism. He states that one night prior to his presentation he had reportedly taken a Jessica which he states had never done before. She also reports that he had been taking more of his pain medications than as directed recently for the past 4 days. Patient reports that his recent DKA was due to not being able to afford a new insulin bottle as his previous one had broken. Patient denies ever having made suicidal statements at the time he was taken in by police but states that his depression has been up and down. He states that recently he had been upset with his father after being like to and this and that he was supposed to have an given a business which was passed on to someone else. He states that he has also been feeling stressed by the way that his father controls his mother. He reports no changes sleep lately increased appetite, change in energy, decrease in concentration and feeling depressed but not endorsing suicidal ideations. Patient states that he feels that perhaps the drugs that he recently took could have made him see the worms. Patient reports this is his admission he had not seen any worms here in the hospital. Patient reports he has been feeling helpless and hopeless for the last 4 days. Patient states that at this time he feels good denies SI, HI, AVH or delusions. Psychiatric family history: father with alcohol use disorder, alcohol at committed suicide and possibly an aunt. Past psychiatric history: previous psychiatric diagnoses of depression, anxiety , ADD as per patient, 3 previous psychiatric hospitalizations (last being here [facility]), denies previous suicide attempt, denies history of self- injurious behaviors. Previous mental health services, with Dr. Sherwood at [facility] last seen 1 month ago. Previous medication trials include Adderall, Klonopin, Xanax, Strattera, Concerta, Vyvanse, Wellbutrin, Zoloft, and was recently prescribed Adderall, venlafaxine, and Valium. Patient reports he has been inconsistent with this medication regimen. Substance use history: Patient reports remote history of heroin use (smoked) and cocaine use. He reports recent use of marijuana about a year ago, amphetamines, and Xanax. Patient states use Jessica for the first time as stated above. Past medical history: Diabetes Allergies: NKDA Social history: Single, highest education is GED, employed at a [employer], domiciled with parents. Legal history: Patient reports having [facility] (did not specify charge but states that it was not a violent crime) Tobacco Use In Past 30 Days: 4 or Less Cigarettes/Day Alcohol Use: Never Hospital Course Patient is a 31-year-old man, single, domiciled parents, past psychiatric history of depression, anxiety, ADD as per patient, previous psychiatric hospitalizations (last time being in December 2016 in [place]), no prior suicide attempts or self-injurious behavior, continued to outpatient psychiatrist Dr. Sherwood and [facility], was brought into the ER the [place] by police as patient had reportedly was making suicidal statements if approached and was admitted to the intensive care unit for DKA which psychiatry was consulted for evaluation and was noted to have a bizarre delusions of having been infested with worm which he was subsequently transferred to the inpatient psychiatry for further evaluation and management. Patient was restarted on escitalopram 10mg PO daily and bupropion XL 150mg PO daily which he tolerated well. Patient was noted to be with stable mood, denied any depressive symptoms or suicidal ideations, and cooperative with staff. He reported improvement of depressed mood, motivated to return back to work, and continue to reach sobriety from substance use which he plans on re-engaging in rehabilitation program for substance use. Upon discharge, patient stated feeling "good" denied any SI, HI, AVH or delusions. He agrees to continue treatment and outpatient follow up for continuity of care. Patient was counseled on abstinence from substance use. Supportive psychotherapy provided. Patient advised to call 911 or go nearest ED in case of emergency. Patient agrees with plan. Results Blood Pressure 100 / 57 Vital Signs Date Time Temp Pulse Resp B/P (MAP) Pulse Ox O2 Delivery O2 Flow Rate FiO2 03/18/17 06:24 97.6 73 17 100/57 (71) 99 Laboratory Tests Test 03/16/17 06:11 03/17/17 11:06 White Blood Count 14.3 TH/MM3 (4.0-11.0) Red Blood Count 4.18 MIL/MM3 (4.50-5.90) 3.92 MIL/MM3 (4.50-5.90) Hemoglobin 12.5 GM/DL (13.0-17.0) 11.9 GM/DL (13.0-17.0) Hematocrit 36.1 % (39.0-51.0) 34.8 % (39.0-51.0) Neutrophils # (Auto) 8.2 TH/MM3 (1.8-7.7) Lymphocytes # (Auto) 5.1 TH/MM3 (1.0-4.8) Blood Urea Nitrogen 22 MG/DL (7-18) Albumin 2.8 GM/DL (3.4-5.0) 2.8 GM/DL (3.4-5.0) Random Glucose 405 MG/DL (74-106) Sodium Level 135 MEQ/L (136-145) Laboratory Results Test 03/15/17 09:55 Cholesterol Level 206 MG/DL (120-200) HDL Cholesterol 39.8 MG/DL (40.0-60.0) Hemoglobin A1c 13.8 % (4.3-6.0) LDL Cholesterol 125 MG/DL (0-99) Triglycerides Level 205 MG/DL (42-150) Summary of Procedures None Imaging Last Impressions Soft Tissue Ultrasound 03/18/17 0000 Signed Impressions: Service Date/Time: Saturday, March 18, 2017 12:13 - CONCLUSION: Soft tissue mass as described above. Ignacio Forte MD FACR Lumbar Spine CT 03/17/17 0000 Signed Impressions: Service Date/Time: Friday, March 17, 2017 13:32 - CONCLUSION: 1. No significant lumbar spine abnormality is identified. 2. There is a 2 mm nonobstructing right renal stone. Milo Kraus MD Pending results at discharge: No Medications # of Antipsychotic meds at D/C: 0 Approp Antipsych med options 1 - Minimum of three failed multiple trials of monotherapy. 2 - Documented plan to taper to monotherapy due to previous use of multiple meds OR cross-taper in progress at D/C. 3 - Documentation of augmentation of Clozapine. 4 - Justification other than those listed in allowable values 1-3, document here : Discharge Discharge Date: Mar 18, 2017 Discharge Diagnosis: (1) Adjustment disorder with mixed anxiety and depressed mood ICD Code: F43.23 - Adjustment disorder with mixed anxiety and depressed mood Pt Condition on Discharge: Stable Discharge Disposition: Discharge Home Discharge Instructions Diet Instructions: Diabetic Diet Activities you can perform: Regular-No Restrictions Scheduled Appointment: Arsenio Watson Appointment Date: Mar 19, 2017 Appointment Time: 07:30am Discharge Time > 30 minutes Mental Status Examination Appearance: Appropriate Consciousness: Alert Orientation: Person, Place, Date/Time Motor Activity: Normal gait Speech: Unremarkable Language: Adequate Fund of Knowledge: Adequate Attention and Concentration: Adequate Memory: Unremarkable Mood: Appropriate Affect: Appropriate Thought Process & Associations: Intact, Linear Thought Content: Appropriate Hallucination Type: None Delusion Type: None Suicidal Ideation: No Suicidal Plan: No Suicidal Intention: No Homicidal Ideation: No Homicidal Plan: No Homicidal Intention: No Insight: Fair Judgment: Impulsive Discharge/Advance Care Plan Health Problems: (1) Adjustment disorder with mixed anxiety and depressed mood Goals to promote your health * To prevent worsening of your condition and complications * To maintain your health at the optimal level Directions to meet your goals Take your medications as prescribed Follow your dietary instruction Follow activity as directed Keep your appointments as scheduled Take your immunizations and boosters as scheduled If your symptoms worsen call your PCP, if no PCP go to Urgent Care Center or Emergency Room For 26/11 questions related to your inpatient stay or results of tests pending at discharge, please contact Dr. Erick Marrero at Smoking is Dangerous to Your Health. Avoid second hand smoking Erick Marrero MD Mar 18, 2017 19:11
== END 2017-03-18 13:51 | disposition home or self-care (01) | DRG 882 ==
LOC: H4EA 17:10
PROVIDERS: ADMIT Student in an Organized Health Care Education/Training Program; ATTEND Student in an Organized Health Care Education/Training Program
DX: F43.23 Adjustment disorder with mixed anxiety and depressed mood (principal); E10.65 Type 1 diabetes mellitus with hyperglycemia; R45.851 Suicidal ideations; F11.20 Opioid dependence, uncomplicated; F41.8 Other specified anxiety disorders; G89.29 Other chronic pain; E78.00 Pure hypercholesterolemia, unspecified; E86.0 Dehydration; F17.210 Nicotine dependence, cigarettes, uncomplicated; R22.2 Localized swelling, mass and lump, trunk; M54.9 Dorsalgia, unspecified; W19.XXXA Unspecified fall, initial encounter; Z81.8 Family history of other mental and behavioral disorders; Z91.19 Patient's noncompliance with other medical treatment and regimen; Z76.5 Malingerer [conscious simulation]; Z79.4 Long term (current) use of insulin
CPT/HCPCS: 72131; 76999; 80048; 80053; 80061; 82948; 83036; 83735; 84100; 85025; J1815

== ENCOUNTER 2017-03-28 14:30 | Inpatient (IN) | payer BC ==
[~2017-03-28] VITALS: Ht 177.8 cm; Wt 64.3 kg
[~2017-03-28 14:30] MED LIST changes: +BUPR150CR PO; +CEPH-461 PO; -DIAZ10 PO; -DILA4TAB10 PO; +ESCI10TA PO; -LANTUS2P SQ; +LIPI10TA PO; +NOVOLOGP2 SQ; -NOVORP2 SQ; -RITA20TA PO
[2017-03-28] MEDS ORDERED: ALUMINUM/MAGNESIUM/SIMETH 30 ML CUP PO PRN (18:15)
[2017-03-28] MEDS ORDERED: MAGNESIUM HYDROXIDE SUSP 30 ML CUP PO PRN (18:15)
[2017-03-28] MEDS ORDERED: LORazepam 2 MG/ML VIAL IM PRN (18:15)
[2017-03-28 19:04] VITALS: BP 116/69; PULSE 75; RESP 18; TEMP 97.6; O2SAT 100
[2017-03-28] MEDS ORDERED: DEXTROSE 50% IN WATER 50 ML VIAL(D50) IV PUSH PRN (20:30)
[2017-03-28] MEDS ORDERED: GLUCAGON 1 MG/ML VIAL OTHER PRN (20:30)
--- NOTE | 2017-03-28 20:43 | PD.CONS ---
[facility] By [facility]iatry Reason for Consult Medical management Primary Care Physician Unknown Diagnoses: (1) Chest wall mass (2) Diabetes History of Present Illness 31-year-old male with a past medical history for type 1 diabetes mellitus, IV drug abuse and chronic pain with previous diagnosis of adjustment disorder with anxiety/depression is seen in consultation for medical management. The patient reports he takes 47 units of Lantus twice a day with sliding scale insulin as well. He complains of chest pain associated with a medial chest wall mass that is erythematous and fluctuant. He reports purulent drainage from the area earlier today. Ultrasound of the area done on 03/18 showed a soft tissue mass in the anterior chest without fluid that could be inflammatory. Patient was recently hospitalized for noncompliance with his insulin and had a blood glucose of 1656. He reports last IV drug use was approximately 15 days ago. Review of Systems Denies fever or chills Denies blurry vision, otorrhea, rhinorrhea Denies sore throat and cough No chest pain, palpitations, shortness of breath No abdominal pain Denies constipation/diarrhea/nausea/vomiting Denies muscle pain/weakness No rashes Past Family Social History Allergies: Coded Allergies: No Known Allergies (Verified Allergy, Unknown, 03/10/17) Past Medical History Type 1 diabetes mellitus Substance abuse including IV drug use Adjustment disorder with depression/anxiety Past Surgical History None Reported Medications Reported Meds & Active Scripts Active Keflex (Cephalexin) 750 Mg Cap 750 Mg PO Q6H Thera Tablet (Multivitamin with Folic Acid) 400 Mcg Tablet 1 Tab PO DAILY 30 Days Gnp Vitamin B-1 (Thiamine HCl) 100 Mg Tab 100 Mg PO DAILY 30 Days Folic Acid 1 Mg Tablet 1 Mg PO DAILY 30 Days Levemir Inj (Insulin Detemir) 1,000 unit/ 10 ML Vial 15 Units SQ BID 30 Days Do not mix with any other Insulin. Novolog Inj (Insulin Aspart) 1,000 Unit/10 Ml Vial 7 Units SQ TIDAC 30 Days Escitalopram (Escitalopram Oxalate) 10 Mg Tab 10 Mg PO DAILY 30 Days Wellbutrin SR 12 HR (Bupropion HCl) 150 Mg Tab 150 Mg PO DAILY 30 Days Lipitor (Atorvastatin Calcium) 10 Mg Tab 10 Mg PO HS 30 Days Levemir Inj (Insulin Detemir) 1,000 unit/ 10 ML Vial 15 Units SQ BID Do not mix with any other Insulin. Thera/Beta-Carotene (Multiple Vitamin) 1 Tab Tab 1 Tab PO DAILY Gnp Vitamin B-1 (Thiamine HCl) 100 Mg Tab 100 Mg PO DAILY Folic Acid 1 Mg Tablet 1 Mg PO DAILY Chlordiazepoxide HCl 25 Mg Capsule 50 Mg PO Q6H PRN Dilaudid (Hydromorphone HCl) 2 Mg Tab 1 Mg PO Q6H PRN Family History No family history of diabetes or coronary artery disease Social History Smokes a half a pack to 1 pack of cigarettes daily. Denies alcohol. History of IV drug use, last ejection with urszula 15 days ago. Denies marijuana. Reports taking Dilaudid daily. Physical Exam Vital Signs Vital Signs Date Time Temp Pulse Resp B/P (MAP) Pulse Ox O2 Delivery O2 Flow Rate FiO2 03/28/17 19:04 97.6 75 18 116/69 (85) 100 Physical Exam GENERAL: Thin, disheveled male lying in bed SKIN: 3 x 2 cm erythematous, fluctuant mass on the anterior chest near xiphoid process HEAD: Atraumatic. Normocephalic. No temporal or scalp tenderness. EYES: Pupils equal round and reactive. Extraocular motions intact. No scleral icterus. No injection or drainage. ENT: Nose without bleeding, purulent drainage or septal hematoma. Throat without erythema, tonsillar hypertrophy or exudate. Uvula midline. Airway patent. NECK: Trachea midline. No JVD or lymphadenopathy. Supple, nontender, no meningeal signs. CARDIOVASCULAR: Regular rate and rhythm without murmurs, gallops, or rubs. RESPIRATORY: Clear to auscultation. Breath sounds equal bilaterally. No wheezes , rales, or rhonchi. GASTROINTESTINAL: Abdomen soft, non-tender, nondistended. No hepato-splenomegaly , or palpable masses. No guarding. MUSCULOSKELETAL: Extremities without clubbing, cyanosis, or edema. No joint tenderness, effusion, or edema noted. No calf tenderness. Negative Homans sign bilaterally. NEUROLOGICAL: Awake and alert. Cranial nerves II through XII intact. Motor and sensory grossly within normal limits. Normal speech. Assessment and Plan Assessment and Plan 31-year-old male with past medical history significant for type 1 diabetes mellitus with noncompliance, chronic pain and adjustment disorder with anxiety/ depression and IV drug abuse is seen in medical consultation. 1. Type 1 diabetes mellitus A1c pending Continue home insulin dosing of Lantus 47 units twice a day Sliding scale insulin for supplementation Monitor blood glucose and adjust regimen when necessary 2. Chest mass, concerning for abscess Ultrasound on 03/18 showed a mass without fluid collection, likely inflammatory tissue Area is now fluctuant and patient reports draining purulent material earlier today Repeat ultrasound 3. Chronic pain Patient reports taking 4 mg of Dilaudid 3-4 times daily at home Discussed with patient that we will decrease the dose however he will receive by mouth Dilaudid for his pain control 4. Hyperlipidemia Recent lipid profile shows total cholesterol of 206, LDL 125 Continue home Lipitor 5. IV Drug abuse Cessation counseling provided FEN Regular diet - patient reports he knows how to order food in compliance with his diabetic diet, adjust prn Supplementation with GlucKeisha Maldonado MD Mar 28, 2017 20:42
[2017-03-28] MEDS: INSULIN DETEMIR 100 UNITS/ML VIAL SQ SCH (21:00)
[2017-03-28] MEDS ORDERED: INSULIN DETEMIR 100 UNITS/ML VIAL SQ SCH (21:00)
[2017-03-28] MEDS: REMOVE OLD NICOTINE PATCH T-DERMAL SCH (21:00)
[2017-03-28] MEDS ORDERED: ATORVASTATIN 10 MG TAB PO SCH (21:00)
[2017-03-28] MEDS: INSULIN ASPART SUPPLEMENTAL SCALE SQ SCH (21:46)
[2017-03-28] MEDS: LORazepam 1 MG TAB PO PRN (21:55)
[2017-03-28] MEDS ORDERED: PILL SPLITTER OTHER PRN (22:15)
[2017-03-28] MEDS: HYDROmorphone HCL 2 MG TAB PO PRN (22:25)
[2017-03-29 05:38] VITALS: BP 131/60; PULSE 81; RESP 18; TEMP 97.9; O2SAT 96
[2017-03-29] MEDS: INSULIN ASPART SUPPLEMENTAL SCALE SQ SCH ×4 (08:00→22:24)
[2017-03-29] MEDS: INSULIN DETEMIR 100 UNITS/ML VIAL SQ SCH ×2 (08:38→22:24)
--- NOTE | 2017-03-29 08:59 | RADRPT ---
EXAM DATE/TIME: 03/29/2017 08:03 [facility] COMPARISON: ULTRASOUND SOFT TISSUE, March 18, 2017, 12:13. INDICATIONS : Anterior chest mass, left of midline. MEDICAL HISTORY : Pancreatitis. Diabetes. Depression. Anxiety. SURGICAL HISTORY : Appendectomy. Sergio hip to knee left side. ENCOUNTER: Subsequent ACUITY: 1 month PAIN SCORE: 0/10 LOCATION: Anterior chest, left of midline. AREA EVALUATED: Anterior chest, left of midline. FINDINGS: MASSES: Redemonstration of heterogeneous subcutaneous chest wall mass measuring 2.9 x 0.8 x 2.2 cm largely un changed in size from prior exam. However, there is now a posterior projection which appears to extend through the pectoralis muscle. FLUID COLLECTIONS: None. OTHER: Negative. CONCLUSION: 1. Heterogeneous subcutaneous chest wall mass with new posterior projection which appears to extend t o the pectoralis muscle. Again, suspect inflammatory/infectious etiology. This is amenable to percuta neous sampling with ultrasound guidance. Enio Molina MD on March 29, 2017 at 8:53 Board Certified Radiologist. This report was verified electronically.
[2017-03-29] MEDS ORDERED: buPROPion HCL 150 MG EXTENDED RELEASE TAB PO SCH (09:00)
[2017-03-29] MEDS ORDERED: buPROPion HCL 150 MG SUSTAINED RELEASE TAB PO SCH (09:00)
[2017-03-29] MEDS ORDERED: ESCITALOPRAM OXALATE 10 MG TAB PO SCH (09:00)
[2017-03-29] MEDS: NICOTINE 21 MG/24 HR PATCH T-DERMAL SCH (09:00)
[2017-03-29 09:20] LABS: AUTOMATED NEUTROPHIL # 4.9 TH/MM3 (1.8-7.7); BASOPHIL % 0.6 % (0.0-2.0); EOSINOPHIL # 0.1 TH/MM3 (0-0.4); EOSINOPHIL % 0.9 % (0.0-4.0); HEMATOCRIT 44.4 % (39.0-51.0); HEMO FLAGS DIFF FINAL; LYMPH % 29.6 % (9.0-44.0); LYMPHOCYTE # 2.3 TH/MM3 (1.0-4.8); MEAN CELL VOLUME 89.3 FL (80.0-100.0); MEAN CORPUSCULAR HEMOGLOBIN 30.4 PG (27.0-34.0); MEAN CORPUSCULAR HGB CONC 34.1 % (32.0-36.0); MONO % 4.4 % (0.0-8.0); NEUT % 64.5 % (16.0-70.0); PLATELET COUNT 160 TH/MM3 (150-450); RED BLOOD COUNT 4.98 MIL/MM3 (4.50-5.90); RED CELL DISTRIBUTION WIDTH 14.9 % (11.6-17.2); WHITE BLOOD COUNT 7.6 TH/MM3 (4.0-11.0)
[2017-03-29 09:26] LABS: BLOOD UREA NITROGEN 18 MG/DL (7-18); HDL CHOLESTEROL 39.6 MG/DL (40.0-60.0)
[2017-03-29 09:29] LABS: ANION GAP 6 MEQ/L (5-15); BICARBONATE 26.2 MEQ/L (21.0-32.0); CHLORIDE 103 MEQ/L (98-107); GLOMERULAR FILTRATION RATE 110 ML/MIN (>89); POTASSIUM 4.5 MEQ/L (3.5-5.1); SODIUM (NA) 135 MEQ/L (136-145)
[2017-03-29] MEDS ORDERED: MAGNESIUM HYDROXIDE SUSP 30 ML CUP PO PRN (10:00)
[2017-03-29] MEDS ORDERED: ACETAMINOPHEN 325 MG TAB PO PRN (10:00)
[2017-03-29] MEDS ORDERED: ALUMINUM/MAGNESIUM/SIMETH 30 ML CUP PO PRN (10:00)
[2017-03-29] MEDS: LORazepam 1 MG TAB PO PRN (10:00)
[2017-03-29] MEDS: HYDROmorphone HCL 2 MG TAB PO PRN (10:07)
--- NOTE | 2017-03-29 10:28 | HHI.HP ---
Provisional Diagnosis Admission Date Mar 28, 2017 at 15:57 Ozan I. Adjustment disorder with mixed disturbances of emotion and conduct f 43.25 Certification of Person's Competence To Provide Express and Informed Consent I have personally examined Ignacio Bedolla , a person being served at [facility] on, Mar 29, 2017 10:07. Express and informed consent means consent voluntarily given in writing, by a competent person, after sufficient explanation and disclosure of the subject matter involved to enable the person to make a knowing and willful decision without any element of force, fraud, deceit, duress, or other form of constraint or coercion. This person is 18 years of age or older, is not now known to be incompetent to consent to treatment with a guardian advocate, and does not have a health care surrogate or proxy currently making medical treatment decisions. I have found this person to be one of the following: [] Competent to provide express and informed consent, as defined above, for voluntary admission to this facility and is competent to provide express and informed consent for treatment. He/she has the consistent capacity to make well reasoned, willful, and knowing decisions concerning his or her medical or mental health treatment. The person fully and consistently understands the purpose of the admission for examination/placement and is fully capable of personally exercising all rights assured under [place] [] Incompetent to provide express and informed consent to voluntary admission, and this is incompetent to provide express and informed consent to treatment. The person must be transferred to involuntary status and a petition for a guardian advocate filed with the Circuit Court. []xxxx Refusing to provide express and informed consent to voluntary admission but is competent to provide express and informed consent for treatment. The person must be discharged or transferred to involuntary status. Form shall be completed within 24 hours of a person's arrival at the receiving facility and filed in the clinical record of each person: 1. Admitted on a voluntary basis 2. Permitted to provide express and informed consent to his/her own treatment 3. Allowed to transfer from involuntary to voluntary status 4. Prior to permitting a person to consent to his or her own treatment after having been previously found incompetent to consent to treatment. 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 Medical advised that Don has been talking about suicide recently. Patient was brought to [facility]. Was admitted there on that date in diabetic ketoacidosis for blood sugar level of over 450. It appears there is no urine toxicology done at that time. He should medically cleared yesterday transferred here under the Gonzalez act for further care. Of interest patient was hospitalized here 03/14/17 through with is discharged home on Celexa 10 mg daily and Wellbutrin XL 150 mg daily. Patients had multiple visits related to his quite labile diabetes with blood sugars ranging from 30s and 40s to over 1600. At the present time patient seen quietly in his room is calm cooperative is somewhat irritable and guarded. States he is having argument with his father about his insulin, but his independence. Though he states he lives under the same roof but separately and a "in-laws" apartment. He lives with his mother and father and that situation. It appears the patient is unemployed at this time is basically in the house with his family. He states she's been overall cooperative with his medication. Though the history from being noncompliant with and misusing various drugs in the past he is on significant opiates and psychotropic medications at the present time. States she is being prescribed by Dr. Sherwood in that area. She also has a fluctuant lesion on his chest wall that has been assessed by our hospitalist today. He is being managed with his diabetes and his other medical issues by the hospitalist. Attempted to reach patient's parents that both her home phone and their cell phone [phone] and [phone] without results. At the present time I feel patient does meet criteria for further observation assessment for both his mental health issues and is significant medical conditions. I feel he does meet criteria for Gonzalez act for involuntary hospitalization thus I'll do first opinion requests a second opinion. I feel he does have capacity to sign for his medications. We' ll continue his Celexa and is low patient per the med reconciliation. We did have the hospitalist consulting with us. Patient does deny physical or sexual abuse. Denies mental health issues and family. Review of Systems Except as stated in HPI: all other systems reviewed are Neg Past Psych History Psychological trauma history Denies physical or sexual abuse. Violence risk - others (6 mos) Low Violence risk - self (6 mos) Mild to moderate perhaps by self-neglect Substance Abuse History Drugs/Alcohol past 12 months Denies though there is some vague history of misuse of prescription medication Past Family Social History Coded Allergies: No Known Allergies (Verified Allergy, Unknown, 03/10/17) Past Medical History X please see MedSurg Active Scripts Cephalexin (Keflex) 750 Mg Cap, 750 MG PO Q6H for Infection, #28 CAP 0 Refills Prov:Wm Wilson MD 03/18/17 Multivitamin with Folic Acid (Thera Tablet) 400 Mcg Tablet, 1 TAB PO DAILY for health for 30 Days, #30 TAB Prov:Erick Marrero MD 03/18/17 Thiamine HCl (Gnp Vitamin B-1) 100 Mg Tab, 100 MG PO DAILY for health for 30 Days, #30 TAB Prov:Erick Marrero MD 03/18/17 Folic Acid (Folic Acid) 1 Mg Tablet, 1 MG PO DAILY for health for 30 Days, #30 TAB Prov:Erick Marrero MD 03/18/17 Insulin Detemir Inj (Levemir Inj) 1,000 unit/ 10 ML Vial, 15 UNITS SQ BID for health for 30 Days, #1 VIAL Do not mix with any other Insulin. Prov:Erick Marrero MD 03/18/17 Insulin Aspart Inj (Novolog Inj) 1,000 Unit/10 Ml Vial, 7 UNITS SQ TIDAC for health for 30 Days, #1 VIAL Prov:Erick Marrero MD 03/18/17 Escitalopram (Escitalopram) 10 Mg Tab, 10 MG PO DAILY for health for 30 Days, # 30 TAB Prov:Erick Marrero MD 03/18/17 Bupropion HCl ER 12 HR (Wellbutrin SR 12 HR) 150 Mg Tab, 150 MG PO DAILY for health for 30 Days, #30 TAB Prov:Erick Marrero MD 03/18/17 Atorvastatin (Lipitor) 10 Mg Tab, 10 MG PO HS for health for 30 Days, #30 TAB Prov:Erick Marrero MD 03/18/17 Insulin Detemir Inj (Levemir Inj) 1,000 unit/ 10 ML Vial, 15 UNITS SQ BID for Blood Sugar Management, #6 VIAL 0 Refills Do not mix with any other Insulin. Prov:Ignacio Roque DO 03/14/17 Multiple Vitamin (Thera/Beta-Carotene) 1 Tab Tab, 1 TAB PO DAILY for Nutritional Supplement, #30 TAB Prov:Ignacio Roque DO 03/14/17 Thiamine HCl (Gnp Vitamin B-1) 100 Mg Tab, 100 MG PO DAILY for Nutritional Supplement, #30 TAB Prov:Ignacio Roque DO 03/14/17 Folic Acid (Folic Acid) 1 Mg Tablet, 1 MG PO DAILY for Nutritional Supplement, # 30 TAB Prov:Ignacio Roque DO 03/14/17 Chlordiazepoxide HCl (Chlordiazepoxide HCl) 25 Mg Capsule, 50 MG PO Q6H Y for WITHDRAWAL, #120 CAP Prov:Ignacio Roque DO 03/14/17 Hydromorphone (Dilaudid) 2 Mg Tab, 1 MG PO Q6H Y for WITHDRAWALS PAIN >2, #30 TAB Prov:Ignacio Roque DO 03/14/17 Current Medications Medications (Trade) Dose Ordered Sig/Dangelo Route Start Time Stop Time Status Last Admin (Ativan) 1 mg Q6H PRN PO 03/28/17 18:15 03/29/17 10:00 (Ativan Inj) 1 mg Q6H PRN IM 03/28/17 18:15 (Milk Of Magnesia Liq) 30 ml DAILY PRN PO 03/28/17 18:15 (Mag-Al Plus Susp Liq) 30 ml Q6H PRN PO 03/28/17 18:15 (Habitrol 21 Mg Patch.24 Hr) 1 patch DAILY T-DERMAL 03/29/17 09:00 Miscellaneous Information 1 HS T-DERMAL 03/28/17 21:00 (Lexapro) 10 mg DAILY PO 03/29/17 09:00 03/29/17 08:38 (Wellbutrin Sr) 150 mg DAILY PO 03/29/17 09:00 03/29/17 08:37 (Levemir Inj) 47 units Q12HR SQ 03/28/17 21:00 03/29/17 08:38 (D50w (Vial) Inj) 50 ml UNSCH PRN IV PUSH 03/28/17 20:30 (Glucagon Inj) 1 mg UNSCH PRN OTHER 03/28/17 20:30 (NovoLOG SUPPLEMENTAL SCALE) 1 ACHS SLIDING SCALE SQ 03/28/17 21:00 03/28/17 21:46 (Lipitor) 10 mg HS PO 03/28/17 21:00 03/28/17 21:48 (Dilaudid) 1 mg Q6H PRN PO 03/28/17 20:45 03/28/17 22:25 (Pill Splitter) 1 ea UNSCH PRN OTHER 03/28/17 22:15 (Tylenol) 650 mg Q4H PRN PO 03/29/17 10:00 UNV (Milk Of Magnesia Liq) 30 ml DAILY PRN PO 03/29/17 10:00 UNV (Mag-Al Plus Susp Liq) 30 ml Q6H PRN PO 03/29/17 10:00 UNV (Lipitor) 10 mg HS PO 03/29/17 21:00 UNV (Wellbutrin Sr) 150 mg DAILY PO 03/30/17 09:00 UNV (Lexapro) 10 mg DAILY PO 03/30/17 09:00 UNV (Folate) 1 mg DAILY PO 03/30/17 09:00 UNV (Theragran) 1 tab DAILY PO 03/30/17 09:00 UNV (Vitamin B1) 100 mg DAILY PO 03/30/17 09:00 UNV Non-Formulary Medication 1 tab DAILY PO 03/30/17 09:00 UNV Family Psych History Patient denies Social History Patient lives" law apartment" in his family's home with his parents he does her brother who of perhaps some type of drug overdose Patient's Strengths (min. 2) Patient verbal able [facility] appears to have supportive family Physical Exam . Medically clear for hospital [facility]. Is also been seen by our hospitalist. Patient sitting quietly in his room he is in no acute distress, he is in no respiratory distress, no complaints of abdominal pain. There is about it 2 cm round erythematous swollen lesion around the costal margin just left of the midline on his anterior chest wall that is somewhat fluctuant and tender. No complaints of abdominal pain patient moves all 4 extremities is some mild complaints of pain in his right femur that was severely fractured years ago Vital Signs Vital Signs Date Time Temp Pulse Resp B/P (MAP) Pulse Ox O2 Delivery O2 Flow Rate FiO2 03/29/17 05:38 97.9 81 18 131/60 (83) 96 Lab Results Test 03/29/17 08:25 White Blood Count 7.6 TH/MM3 Red Blood Count 4.98 MIL/MM3 Hemoglobin 15.2 GM/DL Hematocrit 44.4 % Mean Corpuscular Volume 89.3 FL Mean Corpuscular Hemoglobin 30.4 PG Mean Corpuscular Hemoglobin Concent 34.1 % Red Cell Distribution Width 14.9 % Platelet Count 160 TH/MM3 Mean Platelet Volume 8.8 FL Neutrophils (%) (Auto) 64.5 % Lymphocytes (%) (Auto) 29.6 % Monocytes (%) (Auto) 4.4 % Eosinophils (%) (Auto) 0.9 % Basophils (%) (Auto) 0.6 % Neutrophils # (Auto) 4.9 TH/MM3 Lymphocytes # (Auto) 2.3 TH/MM3 Monocytes # (Auto) 0.3 TH/MM3 Eosinophils # (Auto) 0.1 TH/MM3 Basophils # (Auto) 0.0 TH/MM3 CBC Comment DIFF FINAL Differential Comment Hematology Comments Blood Urea Nitrogen 18 MG/DL Creatinine 0.83 MG/DL Random Glucose 182 MG/DL Calcium Level 8.5 MG/DL Sodium Level 135 MEQ/L Potassium Level 4.5 MEQ/L Chloride Level 103 MEQ/L Carbon Dioxide Level 26.2 MEQ/L Anion Gap 6 MEQ/L Estimat Glomerular Filtration Rate 110 ML/MIN Triglycerides Level 414 MG/DL Cholesterol Level 199 MG/DL LDL Cholesterol MG/DL HDL Cholesterol 39.6 MG/DL Cholesterol/HDL Ratio 5.02 RATIO Mental Status Examination Appearance: Appropriate, Disheveled (mildly) Consciousness: Alert Orientation: Person, Place, Date/Time, Situation Motor Activity: Normal gait Speech: Unremarkable Language: Adequate Fund of Knowledge: Adequate Attention and Concentration: Other (fair) Memory: Unremarkable Mood: Sad, Irritable (mildly) Affect: Other (decreased range and intensity) Thought Process & Associations: Linear Thought Content: Appropriate Hallucination Type: None (denies) Delusion Type: None (denies) Suicidal Ideation: No Suicidal Plan: No Suicidal Intention: No Homicidal Ideation: No Homicidal Plan: No Homicidal Intention: No Insight: Poor Judgment: Poor Assessment & Plan Problem List: (1) Adjustment disorder with mixed disturbance of emotions and conduct ICD Codes: F43.25 - Adjustment disorder with mixed disturbance of emotions and conduct Assessment & Plan Estimated LOS: 3-5 days if this time patient meets criteria for involuntary psychiatric hospitalization under Gonzalez act I will do first opinion request second opinion. I feel he has capacity to sign for medications. We will have the hospitalists consult with us related to his various medical issues the small lesion on his chest wall. Hopeless reassure significant and the patient to his family with follow-up psychiatrist in the community Discharge Planning Probable return to family home with follow-up psychiatrist in community Request HC Surrog/Guard Advoc?: No Milo Harry MD Mar 29, 2017 10:28
--- NOTE | 2017-03-29 13:02 | HHI.PR ---
Subjective Remarks Nursing denies any deterioration since last night. Patient reports that the lesion on his chest has been there for about over a month, says he recently tried to dina it at home with a "hobby surgical knife" which he states was "clean." He says he's had purulent drainage in the last 2-3 days, was not draining earlier in the month. Objective Vital Signs Date Time Temp Pulse Resp B/P (MAP) Pulse Ox O2 Delivery O2 Flow Rate FiO2 03/29/17 05:38 97.9 81 18 131/60 (83) 96 03/28/17 19:04 97.6 75 18 116/69 (85) 100 Result Diagram: 03/29/1782403/29/17824 Objective Remarks Patient lying in bed, no acute distress, sleeping Easily awoken, unlabored breathing, clear breath sounds bilaterally Has fluctuatant very tender raised erythematous lesion consistent with abscess on anterior chest just left to midline at level of the xiphoid process, erythema does not significantly extend beyond raised area but there is significant tenderness to palpation extending about 1-2 cm circumferentially around lesion A/P Assessment and Plan 31-year-old male with past medical history significant for type 1 diabetes mellitus with noncompliance, chronic pain and adjustment disorder with anxiety/ depression and IV drug abuse is seen in medical consultation. 1. Suspected chest abscess Ultrasound from this morning shows that the mass is now projecting toward the pectoralis major Area is fluctuant and patient reports draining purulent material for the last 2 days - actually has TTP extending beyond erythematous margins Given his hx of IVDU and this presentation - I will obtain blood cultures, culture of exudate if obtainable, warm compresses to be started, performing a nasal MRSA swab given his IVDU, obtaining CT chest with contrast and consulting CT surgery 2. Type 1 diabetes mellitus A1c still pending Continue home insulin dosing of Lantus 47 units twice a day Sliding scale insulin for supplementation Monitor blood glucose and adjust regimen when necessary Starting lisinopril for nephroprotection 3. Chronic pain Patient reports taking 4 mg of Dilaudid 3-4 times daily at home Discussed with patient that we will decrease the dose however he will receive by mouth Dilaudid for his pain control 4. Hyperlipidemia Recent lipid profile shows total cholesterol of 206, LDL 125, triglycerides very elevated 2/2 sugars Continue home Lipitor 5. IV Drug abuse Cessation counseling provided FEN Regular diet - patient reports he knows how to order food in compliance with his diabetic diet, adjust prn Supplementation with Glucerna Rony Carrasco MD Mar 29, 2017 13:02
[2017-03-29 16:22] LABS: HEMOGLOBIN A1a 1.2 %; HEMOGLOBIN A1b 1.3 %; HEMOGLOBIN Ao 75.3 %; HEMOGLOBIN F 1.7 %; HEMOGLOBIN LA1C 2.3 %; HEMOGLOBIN P3 4.3 %
[2017-03-29] MEDS ORDERED: IOHEXOL 350 MG/ML 10 ML VIAL (for RAD DIAG) IVCONTRAST ONE (17:49)
[2017-03-29 18:00] VITALS: BP 129/73; PULSE 91; RESP 18; TEMP 97.9; O2SAT 100
--- NOTE | 2017-03-29 18:01 | RADRPT ---
EXAM DATE/TIME: 03/29/2017 17:42 [facility] COMPARISON: No previous studies available for comparison. INDICATIONS : Chest congestion; possible abscess. IV CONTRAST: 71 cc Omnipaque 350 (iohexol) IV RADIATION DOSE: 3.58 CTDIvol (mGy) MEDICAL HISTORY : Pancreatitis. Diabetes mellitus type 1. SURGICAL HISTORY : Appendectomy. ENCOUNTER: Initial ACUITY: 1 week PAIN SCALE: 3/10 LOCATION: chest TECHNIQUE: Volumetric scanning of the chest was performed. Using automated exposure control and adjustment of t he mA and/or kV according to patient size, radiation dose was kept as low as reasonably achievable to obtain optimal diagnostic quality images. DICOM format image data is available electronically for review and comparison. Follow-up recommendations for detected pulmonary nodules are based at a minimum on nodule size and pa tient risk factors according to Fleischner Society Guidelines. FINDINGS: LUNGS: There is no consolidation or pneumothorax. No concerning pulmonary nodule is visualized. 3 mm pleura l nodule left upper lobe laterally (image 19) probably no clinical significance in a 31-year-old PLEURA: Very small pleural effusions right greater left MEDIASTINUM: The heart and great vessels demonstrate no acute abnormality. There is no mediastinal or hilar lymph adenopathy. AXILLAE: Within normal limits. No lymphadenopathy. SKELETAL: Within normal limits for patient age. MISCELLANEOUS: The visualized upper abdominal organs demonstrate no acute abnormality. CONCLUSION: No concerning infiltrate or mass. Tiny pleural effusions bilaterally right greater left Don Tena MD on March 29, 2017 at 17:57 Board Certified Radiologist. This report was verified electronically.
[2017-03-29] MEDS ORDERED: SODIUM CHLOR 0.9% 1000 ML INJ 1,000 ML IV ONE (19:15)
[2017-03-29] MEDS ORDERED: Vancomycin Consult Pharmacy 1 EA OTHER SCH (19:15)
[2017-03-29] MEDS: REMOVE OLD NICOTINE PATCH T-DERMAL SCH (21:00)
[2017-03-29] MEDS: ATORVASTATIN 10 MG TAB PO SCH (22:20)
[2017-03-29] MEDS: VANCOMYCIN 1,000 MG/NS 250 ML IV SCH ×2 (22:24)
[2017-03-30 04:38] LABS: BICARBONATE 27.6 MEQ/L (21.0-32.0)
[2017-03-30 04:39] LABS: POTASSIUM 3.9 MEQ/L (3.5-5.1)
[2017-03-30] MEDS: HYDROmorphone HCL 2 MG TAB PO PRN ×3 (06:46→21:47)
[2017-03-30 07:31] VITALS: BP 127/81; PULSE 74; RESP 16; TEMP 97.8; O2SAT 94
[2017-03-30] MEDS: INSULIN ASPART SUPPLEMENTAL SCALE SQ SCH ×4 (08:00→20:52)
[2017-03-30] MEDS: THIAMINE HCL 100 MG TAB PO SCH (08:57)
[2017-03-30] MEDS: INSULIN DETEMIR 100 UNITS/ML VIAL SQ SCH ×2 (08:58→21:47)
[2017-03-30] MEDS: buPROPion HCL 150 MG SUSTAINED RELEASE TAB PO SCH (08:58)
[2017-03-30] MEDS: ESCITALOPRAM OXALATE 10 MG TAB PO SCH (08:58)
[2017-03-30] MEDS: LORazepam 1 MG TAB PO PRN ×2 (08:58→21:53)
[2017-03-30] MEDS: MULTIVITAMIN TAB PO SCH (08:58)
[2017-03-30] MEDS: NICOTINE 21 MG/24 HR PATCH T-DERMAL SCH (08:58)
[2017-03-30] MEDS: FOLIC ACID 1 MG TAB PO SCH (08:59)
[2017-03-30] MEDS: VANCOMYCIN 1,000 MG/NS 250 ML IV SCH ×4 (09:00→21:47)
[2017-03-30] MEDS ORDERED: MULTIPLE VITAMIN PO SCH (09:00)
--- NOTE | 2017-03-30 13:00 | HHI.PR ---
Subjective Remarks Nursing denies any deterioration since last night. Patient states that he still has mild pain on his chest. Says that he is willing to stick his finger and there to rupture the lesion we desired, I advised him to avoid doing that at all cost. No fevers or chills. He states that he really can't or doesn't want to eat any of the items off the carbohydrate limited menu but says that he limits the carbs himself when given a regular diet and says that this was permitted to him during past admissions. Objective Vital Signs Date Time Temp Pulse Resp B/P (MAP) Pulse Ox O2 Delivery O2 Flow Rate FiO2 03/30/17 07:31 97.8 74 16 127/81 (96) 94 03/29/17 18:00 97.9 91 18 129/73 (91) 100 I/O 03/29/17 03/29/17 03/29/17 03/30/17 03/30/17 03/30/17 07:00 15:00 23:00 07:00 15:00 23:00 Intake Total 720 ml 1200 ml 480 ml Balance 720 ml 1200 ml 480 ml Intake Oral 720 ml 1200 ml 480 ml # Voids 2 1 Result Diagram: 03/29/17 0825 03/30/17 0343 Objective Remarks Patient lying in bed, no acute distress, sleeping Easily awoken, unlabored breathing, clear breath sounds bilaterally fluctuatant very tender raised erythematous lesion consistent with abscess on anterior chest just left to midline at level of the xiphoid process, erythema does not significantly extend beyond raised area but there is significant tenderness to palpation extending about 1-2 cm circumferentially around lesion - unchanged exam since yesterday Heart sounds are regular rate and rhythm, no murmurs Has lesions on chest skin otherwise are suggestive of tinea versicolor A/P Assessment and Plan 31-year-old male with past medical history significant for type 1 diabetes mellitus with noncompliance, chronic pain and adjustment disorder with anxiety/ depression and IV drug abuse is seen in medical consultation. -Suspected chest abscess Ultrasound from this morning shows that the mass is now projecting toward the pectoralis major - discuss CT chest findings radiologist who states that the edema noted of the soft tissue swelling does project anteriorly to the level of the costal cartilages. CT surgery consult pending, apparently per patient surgeon recommended incising and draining next few days . Blood cultures obtained, follow-up results, continue vancomycin. I suspect the lesion has been there was a month or so the patient has been claiming due to uncontrolled diabetes - Type 1 diabetes mellitus A1c > 13 Continue home insulin dosing of Lantus 47 units twice a day. Patient did bottom out to low sugars yesterday morning at about 50, now sugars have gone up to the mid 200s and fluctuated down to the 180s I suspect he is eating his meals irregularly. We will continue with his basal Levemir 47 units twice a day for another 12 hours and see if he has another hypoglycemic episode, if not and still persisting with sugars in the 200s we will then upgrade from low-dose to medium dose sliding scale Continue lisinopril for nephro protection -tinea versicolor likely from poor hygiene combined w/ uncontrolled sugars starting selenium sulfide antifungal -Chronic pain Patient reports taking 4 mg of Dilaudid 3-4 times daily at home Patient was informed earlier that we will proceed with a decreased dose, however he will receive by mouth Dilaudid for his pain control -Hyperlipidemia Recent lipid profile shows total cholesterol of 206, LDL 125, triglycerides very elevated 2/2 sugars Continue home Lipitor - IV Drug abuse Cessation counseling provided FEN Regular diet - patient reports he knows how to order food in compliance with his diabetic diet, adjust prn Supplementation with Rony Cat MD Mar 30, 2017 13:00
--- NOTE | 2017-03-30 13:33 | MB ---
cc: CHRISTIN BLANCHARD MD DATE OF CONSULTATION: 03/30/17 REASON FOR CONSULTATION Left anterior chest wall lesion. HISTORY OF PRESENT ILLNESS Mr. Bedolla is a 31-year-old young man with a known history of diabetes, IV drug use, chronic pain and a history of adjustment disorder with anxiety and depression who was admitted with a psychiatric diagnosis and concerns. During his hospitalization, he was also noted to have a left anterior chest wall lesion. The patient reports that he has had this cystic subcutaneous lesion for a couple months now. At one point, at home he lanced it and drained it himself with exudation of purulent fluid. It is still there however he reports at the present time it is much smaller than what it was initially at the time of initial lancing. Denies any progressive fevers, chills or other infectious complaints. 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 PAST MEDICAL HISTORY 1. Significant for type 1 diabetes mellitus as described above. 2. Substance abuse including IV drug use. 3. Adjustment disorder with depression and anxiety. PAST SURGICAL HISTORY Unremarkable. ALLERGIES THE PATIENT REPORTS NO KNOWN DRUG ALLERGIES. MEDICATIONS Home medications include - 1. Atorvastatin. 2. Hydromorphone. 3. Wellbutrin. 4. Escitalopram. 5. Insulin. SOCIAL HISTORY As described above, is significant for IV drug use as recently as 15 days ago with some history of prescription drug use as well. FAMILY HISTORY Noncontributory. REVIEW OF SYSTEMS Is as above, all other parameters are negative. PHYSICAL EXAMINATION VITAL SIGNS: Today he is 177 cm tall, weighs 63 kilos. Blood pressure is 127/81 with a heart rate of 74 which is regular, respiratory rate is 16 and he is afebrile. HEENT: Normocephalic, atraumatic. Pupils round and reactive. Extraocular muscles intact. NECK: No cervical lymphadenopathy, carotid bruits or JVD. CARDIOVASCULAR: Regular rate and rhythm. Normal S1 and S2 without gallops, rubs or murmurs. LUNGS: Clear to auscultate bilaterally with good air exchange. CHEST WALL: Chest wall examination reveals a focal circumscribed 3 cm x 2.5 cm raised cystic mass in the left anterior chest. There is no surrounding induration although there is some erythema over the lesion itself and a punctate area of previous drainage which is healed. There is no associated tenderness. ABDOMEN: Soft, nontender, nondistended. Normoactive bowel sounds. No hepatosplenomegaly. EXTREMITIES: Bilateral lower extremity pulses are intact without cyanosis, clubbing or edema. No venous varicosities. NEUROLOGIC: Neurologically intact with no focal deficits. IMPRESSION 1. Focal subcutaneous area of collection/abscess with a history of IV drug use. 2. IV drug use. 3. Adjustment disorder. PLAN The clinical, chest x-ray and CT findings were discussed in detail with the patient today. CT does not demonstrate any focal lesion beyond the subcutaneous tissue extending into the chest wall or mediastinal area. He reports that the lesion has significantly subsided in its dimensions. I suspect this represents an underlying focal collection of purulent fluid. Discussed the recommendation of needing to open this and drain this in efforts to allow it to heal. We will re-approach the patient again about the issue of draining at the bedside likely in the next 24-48 hours. He right now wants to think about it. Thank you for allowing me to participate in the care of this patient. Christin MONAE /11:36 AM /1:11 PM
[2017-03-30] MEDS: LISINOPRIL 5 MG TAB PO SCH (13:45)
[2017-03-30] MEDS: SELENIUM SULFIDE 2.5% LOTION 120 ML BTL TOPICAL SCH (14:00)
[2017-03-30] MEDS ORDERED: PIOGLITAZONE HCL 15 MG TAB PO SCH (16:00)
--- NOTE | 2017-03-30 16:20 | HHI.PYPN ---
Subjective Chief Complaint: patient not compliant with medication causing significant risk to self-harm Remarks This a request for second opinion, admission note was reviewed and I agree with the contents. Pt seen and case discussed with nursing. Pt is superficial and inconsistent, says he never had SI and just "can't take of myself." He later asks for Ritalin. Mood is depressed with a blunted affect. Mental Status Examination Appearance: Appropriate, Disheveled (mildly) Consciousness: Alert Orientation: Person, Place, Date/Time, Situation Motor Activity: Normal gait Speech: Unremarkable Language: Adequate Fund of Knowledge: Adequate Attention and Concentration: Other (fair) Memory: Unremarkable Mood: Sad, Irritable (mildly) Affect: Other (decreased range and intensity) Thought Process & Associations: Linear Thought Content: Appropriate Hallucination Type: None (denies) Delusion Type: None (denies) Suicidal Ideation: No Suicidal Plan: No Suicidal Intention: No Homicidal Ideation: No Homicidal Plan: No Homicidal Intention: No Insight: Poor Judgment: Poor Results Labs Test 03/30/17 03:43 Blood Urea Nitrogen 17 MG/DL Creatinine 0.52 MG/DL Random Glucose 86 MG/DL Calcium Level 8.8 MG/DL Sodium Level 139 MEQ/L Potassium Level 3.9 MEQ/L Chloride Level 103 MEQ/L Carbon Dioxide Level 27.6 MEQ/L Anion Gap 8 MEQ/L Estimat Glomerular Filtration Rate 188 ML/MIN Date/Time Source Procedure Growth Status 03/30/17 03:43 Blood Peripheral Aerobic Blood Culture Pending Received 03/30/17 03:43 Blood Peripheral Anaerobic Blood Culture Pending Received Vitals/IOs Vital Signs Date Time Temp Pulse Resp B/P (MAP) Pulse Ox O2 Delivery O2 Flow Rate FiO2 03/30/17 07:31 97.8 74 16 127/81 (96) 94 Intake and Output 03/30/17 03/30/17 03/31/17 08:00 16:00 00:00 Intake Total 480 ml Balance 480 ml Assessment & Plan Problem List: (1) Adjustment disorder with mixed disturbance of emotions and conduct ICD Codes: F43.25 - Adjustment disorder with mixed disturbance of emotions and conduct Assessment & Plan I agree with first opinion, criteria includes SI before admission. Justification for Cont. Inpt. Pt would decompensate in a less restrictive setting. Request HC Surrog/Guard Advoc?: No Tuan Nicole DO Mar 30, 2017 16:20
[2017-03-30] MEDS: REMOVE OLD NICOTINE PATCH T-DERMAL SCH (20:53)
[2017-03-30] MEDS: ATORVASTATIN 10 MG TAB PO SCH (21:47)
[2017-03-31] MEDS: LORazepam 1 MG TAB PO PRN ×3 (04:48→21:35)
[2017-03-31] MEDS: HYDROmorphone HCL 2 MG TAB PO PRN ×3 (04:48→21:35)
[2017-03-31 05:47] VITALS: BP 124/78; PULSE 95; RESP 17; TEMP 97.8; O2SAT 98
[2017-03-31] MEDS: INSULIN ASPART SUPPLEMENTAL SCALE SQ SCH ×4 (08:00→21:00)
[2017-03-31] MEDS ORDERED: PHARMACY ORDERED LAB ONE (08:45)
[2017-03-31] MEDS: MULTIVITAMIN TAB PO SCH (08:56)
[2017-03-31] MEDS: ESCITALOPRAM OXALATE 10 MG TAB PO SCH (08:56)
[2017-03-31] MEDS: THIAMINE HCL 100 MG TAB PO SCH (08:56)
[2017-03-31] MEDS: buPROPion HCL 150 MG SUSTAINED RELEASE TAB PO SCH (08:56)
[2017-03-31] MEDS: LISINOPRIL 5 MG TAB PO SCH (08:57)
[2017-03-31] MEDS: FOLIC ACID 1 MG TAB PO SCH (08:57)
[2017-03-31] MEDS: SELENIUM SULFIDE 2.5% LOTION 120 ML BTL TOPICAL SCH (09:00)
[2017-03-31] MEDS: NICOTINE 21 MG/24 HR PATCH T-DERMAL SCH (09:00)
[2017-03-31] MEDS: INSULIN DETEMIR 100 UNITS/ML VIAL SQ SCH ×2 (09:00→21:00)
[2017-03-31] MEDS: VANCOMYCIN 1,000 MG/NS 250 ML IV SCH ×4 (11:00→21:34)
--- NOTE | 2017-03-31 13:35 | HHI.PR ---
Subjective Remarks Nursing denies any deterioration since last night except for hypoglycemia around in the 50s this morning. Patient's sugars are very labile ranging from 50s this morning to 400+ later in the day. Patient claims he wasn't given a regular diet as he requested even neuropathy ordering yesterday. Patient reports he still has relatively unchanged chest pain with the lesion. Nursing affirms that they have been started topical selenium over the hypopigmented lesion suspected of tinea versicolor otherwise. Objective Vital Signs Date Time Temp Pulse Resp B/P (MAP) Pulse Ox O2 Delivery O2 Flow Rate FiO2 03/31/17 05:48 20 03/31/17 05:47 97.8 95 17 124/78 (93) 98 I/O 03/30/17 03/30/17 03/30/17 03/31/17 03/31/17 03/31/17 06:59 14:59 22:59 06:59 14:59 22:59 Intake Total 840 ml 2880 ml 300 ml 1200 ml Balance 840 ml 2880 ml 300 ml 1200 ml Intake Oral 840 ml 2880 ml 300 ml 1200 ml # Voids 1 1 Result Diagram: 03/29/17 0825 03/30/17 0343 Objective Remarks Ambulating, no acute distress looks somewhat disheveled Unchanged skin lesions including abscess and hypopigmentation since yesterday, no pus appreciated A/P Assessment and Plan 31-year-old male with past medical history significant for type 1 diabetes mellitus with noncompliance, chronic pain and adjustment disorder with anxiety/ depression and IV drug abuse is seen in medical consultation. -Suspected chest abscess Blood cultures are negative to date, continue vancomycin, likely has had very poor healing due to very difficult to control and labile blood sugars. CT surgery plans to do bedside I&D - Type 1 diabetes mellitus A1c > 13 Continue home insulin dosing of Lantus 47 units twice a day. Patient did bottom out this morning is well with his current regimen of Levemir and low-dose sliding scale as well as the Actos that was added yesterday, I will discontinue the Actos and keep him as it is, he will need a carbohydrate ratio adjustment needed before each meal, we'll consult diabetic education for this -tinea versicolor likely from poor hygiene combined w/ uncontrolled sugars selenium sulfide antifungal -Chronic pain Patient reports taking 4 mg of Dilaudid 3-4 times daily at home Patient was informed earlier that we will proceed with a decreased dose, however he will receive by mouth Dilaudid for his pain control -Hyperlipidemia Recent lipid profile shows total cholesterol of 206, LDL 125, triglycerides very elevated 2/2 sugars Continue home Lipitor - IV Drug abuse Cessation counseling provided Early ambulation Rony Carrasco MD Mar 31, 2017 13:35
--- NOTE | 2017-03-31 15:38 | HHI.PYPN ---
Subjective Chief Complaint: patient not compliant with medication causing significant risk to self-harm Remarks Pt was seen and case discussed with nursing. Pt seen with parents. They confirm he has not made any suicidal or hopeless statements. Insight is slowly improving. Concerned about medical treatment and abcess. Behaving well on the unit. Nursing notes arguments with parents earlier. Mental Status Examination Appearance: Appropriate, Disheveled (mildly) Consciousness: Alert Orientation: Person, Place, Date/Time, Situation Motor Activity: Normal gait Speech: Unremarkable Language: Adequate Fund of Knowledge: Adequate Attention and Concentration: Other (fair) Memory: Unremarkable Mood: Sad, Irritable (mildly) Affect: Other (decreased range and intensity) Thought Process & Associations: Intact, Linear Thought Content: Appropriate Hallucination Type: None (denies) Delusion Type: None (denies) Suicidal Ideation: No Suicidal Plan: No Suicidal Intention: No Homicidal Ideation: No Homicidal Plan: No Homicidal Intention: No Insight: Poor Judgment: Poor Results Labs Test 03/31/17 07:25 Vancomycin Level Trough 10.3 MCG/ML Date/Time Source Procedure Growth Status 03/30/17 03:43 Blood Peripheral Aerobic Blood Culture - Preliminary NO GROWTH IN 1 DAY Resulted 03/30/17 03:43 Blood Peripheral Anaerobic Blood Culture - Preliminary NO GROWTH IN 1 DAY Resulted Vitals/IOs Vital Signs Date Time Temp Pulse Resp B/P (MAP) Pulse Ox O2 Delivery O2 Flow Rate FiO2 03/31/17 05:48 20 03/31/17 05:47 97.8 95 124/78 (93) 98 Intake and Output 03/31/17 03/31/17 04/01/17 08:00 16:00 00:00 Intake Total 900 ml 600 ml Balance 900 ml 600 ml Assessment & Plan Problem List: (1) Adjustment disorder with mixed disturbance of emotions and conduct ICD Codes: F43.25 - Adjustment disorder with mixed disturbance of emotions and conduct Assessment & Plan Continue current treatment plan. Justification for Cont. Inpt. Pt would decompensate in a less restrictive setting. Request HC Surrog/Guard Advoc?: No Tuan Nicole DO Mar 31, 2017 15:38
[2017-03-31 18:00] VITALS: BP 120/77; PULSE 93; RESP 16; TEMP 98.5; O2SAT 98
[2017-03-31] MEDS: REMOVE OLD NICOTINE PATCH T-DERMAL SCH (21:00)
[2017-03-31] MEDS: ATORVASTATIN 10 MG TAB PO SCH (21:35)
[2017-04-01] MEDS: HYDROmorphone HCL 2 MG TAB PO PRN ×4 (01:59→20:59)
[2017-04-01] MEDS: LORazepam 1 MG TAB PO PRN ×3 (06:04→20:59)
[2017-04-01 06:08] VITALS: BP 125/77; PULSE 81; RESP 18; TEMP 97.3; O2SAT 100
[2017-04-01] MEDS: INSULIN ASPART SUPPLEMENTAL SCALE SQ SCH ×4 (08:00→21:00)
[2017-04-01] MEDS: SELENIUM SULFIDE 2.5% LOTION 120 ML BTL TOPICAL SCH (08:30)
[2017-04-01] MEDS: buPROPion HCL 150 MG SUSTAINED RELEASE TAB PO SCH (08:31)
[2017-04-01] MEDS: THIAMINE HCL 100 MG TAB PO SCH (08:32)
[2017-04-01] MEDS: FOLIC ACID 1 MG TAB PO SCH (08:32)
[2017-04-01] MEDS: ESCITALOPRAM OXALATE 10 MG TAB PO SCH (08:32)
[2017-04-01] MEDS: MULTIVITAMIN TAB PO SCH (08:32)
[2017-04-01] MEDS: INSULIN DETEMIR 100 UNITS/ML VIAL SQ SCH ×2 (08:33→21:00)
[2017-04-01] MEDS: NICOTINE 21 MG/24 HR PATCH T-DERMAL SCH (08:33)
[2017-04-01] MEDS: LISINOPRIL 5 MG TAB PO SCH (08:33)
[2017-04-01] MEDS: VANCOMYCIN 1,000 MG/NS 250 ML IV SCH ×2 (09:00)
--- NOTE | 2017-04-01 09:29 | HHI.PYPN ---
Subjective Chief Complaint: patient not compliant with medication causing significant risk to self-harm Remarks Patient seen in his room with counselor Ashley, and nurse know, chart reviewed, patient compliant medications. Patient had a good weekend, has been compliant with his medications does denies suicidality homicidality voices or visions. He did state that they're planning to do an IND of the lesion on his anterior chest wall. I subsequently called patient's father at [phone]. We discussed patient's diagnosis treatment the interaction between his severe brittle diabetes in his mental health issues. Father feels mentally son is getting better. Though he is concerned about the stability of his diabetes and his lesion on his chest. He feels we should try to stabilize as best as possible his diabetes also. Do agree with this. Offer for now will continue medications no change await word from medical team related to his diabetic control and assessment of his lesion on his chest Review of Systems Except as stated in HPI: all other systems reviewed are Neg Mental Status Examination Appearance: Appropriate, Disheveled (mildly) Consciousness: Alert Orientation: Person, Place, Date/Time, Situation Motor Activity: Normal gait Speech: Unremarkable Language: Adequate Fund of Knowledge: Adequate Attention and Concentration: Other (fair) Memory: Unremarkable Mood: Sad, Irritable (resolved) Affect: Other (decreased range and intensity) Thought Process & Associations: Intact, Linear Thought Content: Appropriate Hallucination Type: None (denies) Delusion Type: None (denies) Suicidal Ideation: No Suicidal Plan: No Suicidal Intention: No Homicidal Ideation: No Homicidal Plan: No Homicidal Intention: No Insight: Fair Judgment: Adequate Results Labs Date/Time Source Procedure Growth Status 03/30/17 03:43 Blood Peripheral Aerobic Blood Culture - Preliminary NO GROWTH IN 1 DAY Resulted 03/30/17 03:43 Blood Peripheral Anaerobic Blood Culture - Preliminary NO GROWTH IN 1 DAY Resulted Vitals/IOs Vital Signs Date Time Temp Pulse Resp B/P (MAP) Pulse Ox O2 Delivery O2 Flow Rate FiO2 04/01/17 06:08 97.3 81 18 125/77 (93) 100 Intake and Output 04/01/17 04/01/17 04/02/17 08:00 16:00 00:00 Intake Total 0 ml Balance 0 ml Assessment & Plan Problem List: (1) Adjustment disorder with mixed disturbance of emotions and conduct ICD Codes: F43.25 - Adjustment disorder with mixed disturbance of emotions and conduct Assessment & Plan Estimated LOS: days patient appears to be improving with his mental health issues, though his diabetic issues persist. He states that will be further procedures and examinations done of the lesion on his chest today. We need to interface with the medical services to discuss treatment man medical clearances Justification for Cont. Inpt. At this time patient will decompensate if placed in the lower level of care Discharge Planning Return home with family Request HC Surrog/Guard Advoc?: No Milo Harry MD Apr 01, 2017 09:29
[2017-04-01] MEDS ORDERED: LIDOCAINE HCL 1% 30 ML VIAL OTHER ONE (09:30)
--- NOTE | 2017-04-01 11:23 | PD.TTN ---
Patient Problems 1. Discharge planning 2. Medication compliance 3. Knowledge deficit 4. Lack of coping skills Progress Toward Goals Provider Present: Dr. Marie Harry Provider Input: Patient's has been cleared mentally pending medical clearence Psychiatric Counselors Present: KIKI Lee Psych Therapist Input: Counselor will link patient with outpatient service, and contact patient's mother for transportation. Group Spec/RT/OT/WEISS Present: Karlo Marin OT Group Spec/RT/OT/WEISS Input: Patient has refused and been unable to attend groups and activites Documentation Scribe: KIKI Lee Date Resolved: Apr 01, 2017 Teaching Recipient: Patient, Primary Caregiver Ashley Moffett Apr 01, 2017 11:23
--- NOTE | 2017-04-01 11:32 | HHI.PR ---
Subjective Remarks Nursing denies any deterioration since last night except for as expected labile blood sugars. Pt himself says his lesion ruptured. Apparently warm compresses have not been performed as ordered. Objective Vital Signs Date Time Temp Pulse Resp B/P (MAP) Pulse Ox O2 Delivery O2 Flow Rate FiO2 04/01/17 06:08 97.3 81 18 125/77 (93) 100 04/01/17 03:23 20 03/31/17 18:00 98.5 93 16 120/77 (91) 98 I/O 03/31/17 03/31/17 03/31/17 04/01/17 04/01/17 04/01/17 07:00 15:00 23:00 07:00 15:00 23:00 Intake Total 300 ml 1200 ml 840 ml 0 ml Balance 300 ml 1200 ml 840 ml 0 ml Intake Oral 300 ml 1200 ml 840 ml 0 ml # Voids 1 1 1 # Bowel Movements 0 0 Result Diagram: 03/29/17 0825 03/30/17 0343 Objective Remarks Ambulating, no acute distress looks somewhat disheveled lesion on chest appears smaller, less protuberant, mild drainage noted, otherwise unchanged from yesterday's exam A/P Assessment and Plan 31-year-old male with past medical history significant for type 1 diabetes mellitus with noncompliance, chronic pain and adjustment disorder with anxiety/ depression and IV drug abuse is seen in medical consultation. -Suspected chest abscess - improving in size Blood cultures are negative to date, continue vancomycin, likely has had very poor healing due to very difficult to control and labile blood sugars. CT surgery plans to do bedside I&D possibly today? Anticipate transitioning to clindamycin to cover for MRSA. Orders for wound culture placed (if specimen can be obtained via I&D that would be more ideal to culture) Reiterated to RN to proceed w/ warm compresses - Type 1 diabetes mellitus A1c > 13 Continue home insulin dosing of Lantus 47 units twice a day w/ LDSS. transmission supervisor consult placed given labile sugars -tinea versicolor likely from poor hygiene combined w/ uncontrolled sugars selenium sulfide antifungal -Chronic pain Patient reports taking 4 mg of Dilaudid 3-4 times daily at home Patient was informed earlier that we will proceed with a decreased dose, however he will receive by mouth Dilaudid for his pain control -Hyperlipidemia Recent lipid profile shows total cholesterol of 206, LDL 125, triglycerides very elevated 2/2 sugars Continue home Lipitor - IV Drug abuse Cessation counseling provided Early ambulation Rony Carrasco MD Apr 01, 2017 11:32
--- NOTE | 2017-04-01 15:29 | PD.CAR.PN ---
CVT Progress Note Subjective/Hospital Course: 31-year-old young man with a known history of diabetes, IV drug use, chronic pain and a history of adjustment disorder with anxiety and depression who was admitted with a psychiatric diagnosis and concerns. During his hospitalization, he was also noted to have a left anterior chest wall lesion. The patient reports that he has had this cystic subcutaneous lesion for a couple months now. At one point, at home he lanced it and drained it himself with exudation of purulent fluid. It is still there however he reports at the present time it is much smaller than what it was initially at the time of initial lancing. Denies any progressive fevers, chills or other infectious complaints. 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 04/01 I&D of chest lesion completed by Dr Waters / iodoform inserted in wound pt will need bid iodoform dressing changes , site to be cleansed with chloraseptic prior new culture obtained / await final results Objective: GENERAL: : Chest wall examination reveals a focal circumscribed 3 cm x 2.5 cm raised cystic mass in the left anterior chest. There is no surrounding induration although there is some erythema over the lesion itself and a punctate area of previous drainage which is healed. There is no associated tenderness. HEAD: Normocephalic. EYES: No scleral icterus. No injection or drainage. NECK: Supple, trachea midline. No JVD or lymphadenopathy. CARDIOVASCULAR: Regular rate and rhythm without murmurs, gallops, or rubs. RESPIRATORY: Breath sounds equal bilaterally. No accessory muscle use. GASTROINTESTINAL: Abdomen soft, non-tender, nondistended. MUSCULOSKELETAL: No cyanosis, or edema. BACK: Nontender without obvious deformity. No CVA tenderness. Vital Signs Date Time Temp Pulse Resp B/P (MAP) Pulse Ox O2 Delivery O2 Flow Rate FiO2 04/01/17 06:08 97.3 81 18 125/77 (93) 100 04/01/17 03:23 20 03/31/17 18:00 98.5 93 16 120/77 (91) 98 Result Diagram: 03/29/17 0825 03/30/17 0343 (1) Diabetes (2) Chest wall mass Plan: I&D completed, bid dressing changes await sensitivity on vancomycin change to oral therapy once culture resulted (3) Adjustment disorder with mixed disturbance of emotions and conduct Cristina Wen Apr 01, 2017 15:29
--- NOTE | 2017-04-01 17:31 | PD.OP ---
Operative Report Date of Surgery: Apr 01, 2017 Preoperative Diagnosis: (1) Chest wall mass Postoperative Diagnosis: Procedure: Incision and Drainage of Chest Wall Abscess Surgeon: Janet Waters Pediatric Anesthesiologist(s): Lyubov Wen Operation and Findings: 3 cm area of fluctuance in the anterior cheat wall. After obtaining consent the area was prepped with Chloraprep, draped and anesthetized with 1% Lidocaine. An incision was made into the lesion and bloody fluid with necrotic fat was evacuated and sent for microbiological analysis. No additional fluid was expressible. The lesion was then packed with 1/4 inch iodoform gauze after assuring strict hemostasis. The patient tolerated the procedure well. Janet Waters MD Apr 01, 2017 17:31
[2017-04-01 17:52] VITALS: BP 125/71; PULSE 101; RESP 18; TEMP 97.9; O2SAT 98
[2017-04-01 18:00] VITALS: BP 125/71; PULSE 101; RESP 18; TEMP 97.9; O2SAT 98
[2017-04-01] MEDS: ATORVASTATIN 10 MG TAB PO SCH (20:59)
[2017-04-01] MEDS: REMOVE OLD NICOTINE PATCH T-DERMAL SCH (21:00)
[2017-04-02] MEDS: VANCOMYCIN 1,000 MG/NS 250 ML IV SCH ×4 (00:11→08:01)
[2017-04-02] MEDS: HYDROmorphone HCL 2 MG TAB PO PRN ×4 (01:32→21:39)
[2017-04-02 05:59] VITALS: BP 122/74; PULSE 91; RESP 18; TEMP 98.1; O2SAT 97
[2017-04-02] MEDS: LORazepam 1 MG TAB PO PRN ×3 (06:28→21:43)
[2017-04-02 06:45] VITALS: BP 122/74; PULSE 91; RESP 18; TEMP 98.1; O2SAT 97
[2017-04-02] MEDS: FOLIC ACID 1 MG TAB PO SCH (08:00)
[2017-04-02] MEDS: THIAMINE HCL 100 MG TAB PO SCH (08:00)
[2017-04-02] MEDS: ESCITALOPRAM OXALATE 10 MG TAB PO SCH (08:00)
[2017-04-02] MEDS: INSULIN ASPART SUPPLEMENTAL SCALE SQ SCH ×4 (08:00→21:00)
[2017-04-02] MEDS: SELENIUM SULFIDE 2.5% LOTION 120 ML BTL TOPICAL SCH (08:01)
[2017-04-02] MEDS: NICOTINE 21 MG/24 HR PATCH T-DERMAL SCH (08:01)
[2017-04-02] MEDS: LISINOPRIL 5 MG TAB PO SCH (08:01)
[2017-04-02] MEDS: buPROPion HCL 150 MG SUSTAINED RELEASE TAB PO SCH (08:01)
[2017-04-02] MEDS: INSULIN DETEMIR 100 UNITS/ML VIAL SQ SCH ×2 (08:01→21:00)
[2017-04-02] MEDS: MULTIVITAMIN TAB PO SCH (08:01)
--- NOTE | 2017-04-02 09:27 | HHI.PYPN ---
Subjective Chief Complaint: patient not compliant with medication causing significant risk to self-harm Remarks Recent seen in his room with nurse Zev, chart review, patient compliant medications, patient sitting on the edge of his bed. Patient calm cooperative and pleasant denying suicidality homicidality voices or visions. It appears abscess on his chest was opened is being cultured at this time, he has an iodoform dressing and it medicine services watching. I did talk with patient's medical attending Dr. Pitt he will be checking of the culture also Shahid did not further assessment of patient's diabetic treatment whether he needs [place] to the medical floor to continue treatment or if he is medically cleared for outpatient treatment. Patient is doing well psychiatrically Review of Systems Except as stated in HPI: all other systems reviewed are Neg Mental Status Examination Appearance: Appropriate, Disheveled (mildly) Consciousness: Alert Orientation: Person, Place, Date/Time, Situation Motor Activity: Normal gait Speech: Unremarkable Language: Adequate Fund of Knowledge: Adequate Attention and Concentration: Other (fair) Memory: Unremarkable Mood: Sad, Irritable (resolved) Affect: Other (decreased range and intensity) Thought Process & Associations: Intact, Linear Thought Content: Appropriate Hallucination Type: None (denies) Delusion Type: None (denies) Suicidal Ideation: No Suicidal Plan: No Suicidal Intention: No Homicidal Ideation: No Homicidal Plan: No Homicidal Intention: No Insight: Fair Judgment: Adequate Results Labs Test 04/01/17 22:20 Vancomycin Level Trough 5.5 MCG/ML Date/Time Source Procedure Growth Status 03/30/17 03:43 Blood Peripheral Aerobic Blood Culture - Preliminary NO GROWTH IN 2 DAYS Resulted 03/30/17 03:43 Blood Peripheral Anaerobic Blood Culture - Preliminary NO GROWTH IN 2 DAYS Resulted 04/01/17 13:05 Wound Chest Gram Stain - Final Resulted 04/01/17 13:05 Wound Chest Wound Culture Pending Resulted Vitals/IOs Vital Signs Date Time Temp Pulse Resp B/P (MAP) Pulse Ox O2 Delivery O2 Flow Rate FiO2 04/02/17 06:45 98.1 91 18 122/74 (90) 97 Intake and Output 04/02/17 04/02/17 04/03/17 08:00 16:00 00:00 Intake Total 480 ml 360 ml Balance 480 ml 360 ml Assessment & Plan Problem List: (1) Adjustment disorder with mixed disturbance of emotions and conduct ICD Codes: F43.25 - Adjustment disorder with mixed disturbance of emotions and conduct Assessment & Plan Estimated LOS: days patient calm cooperative, denying suicidality homicidality voices or visions. Compliant medications. Continue to work with medicine service related to treatment of his chest wall abscess and his diabetes Justification for Cont. Inpt. At this time patient decompensate of placed in a lower level of care Discharge Planning Return home with family Request HC Surrog/Guard Advoc?: No Milo Harry MD Apr 02, 2017 09:27
--- NOTE | 2017-04-02 11:17 | HHI.PR ---
Subjective Remarks Follow-up for anterior chest wall abscess status post I&D. Patient is currently doing well. No chest pain, shortness of breath, fever or chills. Objective Vitals Vital Signs Date Time Temp Pulse Resp B/P (MAP) Pulse Ox O2 Delivery O2 Flow Rate FiO2 04/02/17 06:45 98.1 91 18 122/74 (90) 97 04/02/17 05:59 98.1 91 18 122/74 (90) 97 04/01/17 18:00 97.9 101 18 125/71 (89) 98 04/01/17 17:52 97.9 101 18 125/71 (89) 98 I/O 04/01/17 04/01/17 04/01/17 04/02/17 04/02/17 04/02/17 07:00 15:00 23:00 07:00 15:00 23:00 Intake Total 0 ml 360 ml 1320 ml 480 ml 360 ml Balance 0 ml 360 ml 1320 ml 480 ml 360 ml Intake Oral 0 ml 360 ml 1320 ml 480 ml 360 ml # Voids 1 3 2 # Bowel Movements 0 Result Diagram: 03/29/17 0825 03/30/17 0343 Imaging Last Impressions Soft Tissue Ultrasound 03/29/17 0000 Signed Impressions: Service Date/Time: Wednesday, March 29, 2017 08:03 - CONCLUSION: 1. Heterogeneous subcutaneous chest wall mass with new posterior projection which appears to extend to the pectoralis muscle. Again, suspect inflammatory/infectious etiology. This is amenable to percutaneous sampling with ultrasound guidance. Enio Molnia MD Chest CT 03/29/17 0000 Signed Impressions: Service Date/Time: Wednesday, March 29, 2017 17:42 - CONCLUSION: No concerning infiltrate or mass. Tiny pleural effusions bilaterally right greater left Don Tena MD Objective Remarks GENERAL: Alert, oriented 3, NAD. SKIN: Warm and dry. Anterior chest wall abscess status post I&D, covered with dressing. HEAD: Normocephalic. EYES: No scleral icterus. No injection or drainage. NECK: Supple, trachea midline. No JVD or lymphadenopathy. CARDIOVASCULAR: Regular rate and rhythm without murmurs, gallops, or rubs. RESPIRATORY: Breath sounds equal bilaterally. No accessory muscle use. GASTROINTESTINAL: Abdomen soft, non-tender, nondistended. MUSCULOSKELETAL: No cyanosis, or edema. BACK: Nontender without obvious deformity. No CVA tenderness. Procedures Incision and Drainage of Chest Wall Abscess 04/01/2017. A/P Problem List: (1) Chest wall mass ICD Code: R22.2 - Localized swelling, mass and lump, trunk (2) Diabetes ICD Code: E11.9 - Type 2 diabetes mellitus without complications Assessment and Plan Mr. Bedolla is a 31-year-old male with past medical history significant for type 1 diabetes mellitus with noncompliance, chronic pain and adjustment disorder with anxiety/depression and IV drug abuse is seen in medical consultation. - Anterior chest wall abscess - CT surgery performed bedside I&D. Abscess was about 3cm. - Currently on Vancomycin. Will d/c Vancomycin and start patient on Bactrim DS X 14 days since abscess is > 2cm. - Blood cx negative. Wound cx pending, no organism seen on gram stain. - Follow up with PCP after discharge - Type 1 diabetes mellitus - Patient takes 47 units of Lantus BID at home along with pre-meal and sliding scale insulin (Regular insulin). - He is advised to follow up with an director of event marketing in the outpatient setting. - While he is in the hospital, due to controlled food intake, 47 units of Levemir is too much which is why his blood glucose may be on the lower side. - Will reduce Levemir by about 30% to Levemir 35 units Q12hrs. - Add Aspart 3 units TIDAC. Hold if pre-meal glucose less than 110. - Continue sliding scale insulin. Full code. Ambulation. If patient remains afebrile, he can be discharged (from medical standpoint) home on 04/03/2017. Discussed with psychiatry attending who stated that patient is cleared for discharged from psychiatry standpoint. Violetta Pitt DO Apr 02, 2017 11:17 am
[2017-04-02] MEDS ORDERED: INSULIN ASPART 1,000 UNITS/10 ML VIAL SQ SCH (12:00)
--- NOTE | 2017-04-02 15:30 | PD.CAR.PN ---
CVT Progress Note Subjective/Hospital Course: 31-year-old young man with a known history of diabetes, IV drug use, chronic pain and a history of adjustment disorder with anxiety and depression who was admitted with a psychiatric diagnosis and concerns. During his hospitalization, he was also noted to have a left anterior chest wall lesion. The patient reports that he has had this cystic subcutaneous lesion for a couple months now. At one point, at home he lanced it and drained it himself with exudation of purulent fluid. It is still there however he reports at the present time it is much smaller than what it was initially at the time of initial lancing. Denies any progressive fevers, chills or other infectious complaints. 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 04/01 I&D of chest lesion completed by Dr Waters / iodoform inserted in wound pt will need bid iodoform dressing changes , site to be cleansed with chloraseptic prior new culture obtained / await final results 04/02 2.5 cm wound with packing in place , minimal fluctuance noted, initial culture viewed + lemuel albicans , will need fungal coverage , will discuss with PVP continue iodoform packing bid Objective: GENERAL: SKIN: Warm and dry. 2 cm raised lesion left chest , with packing in place, mild surrounding erythema some sero sang drainage HEAD: Normocephalic. EYES: No scleral icterus. No injection or drainage. NECK: Supple, trachea midline. No JVD or lymphadenopathy. CARDIOVASCULAR: Regular rate and rhythm without murmurs, gallops, or rubs. RESPIRATORY: Breath sounds equal bilaterally. No accessory muscle use. GASTROINTESTINAL: Abdomen soft, non-tender, nondistended. MUSCULOSKELETAL: No cyanosis, or edema. BACK: Nontender without obvious deformity. No CVA tenderness. Vital Signs Date Time Temp Pulse Resp B/P (MAP) Pulse Ox O2 Delivery O2 Flow Rate FiO2 04/02/17 06:45 98.1 91 18 122/74 (90) 97 04/02/17 05:59 98.1 91 18 122/74 (90) 97 04/01/17 18:00 97.9 101 18 125/71 (89) 98 04/01/17 17:52 97.9 101 18 125/71 (89) 98 Result Diagram: 03/29/17 0825 03/30/17 0343 (1) Diabetes (2) Chest wall mass Plan: I&D completed, bid dressing changes preliminary lemuel albicans/ will need fungal coverage will re-eval wound in am for discharge instructions (3) Adjustment disorder with mixed disturbance of emotions and conduct Cristina Wen Apr 02, 2017 15:30
[2017-04-02] MEDS ORDERED: VANCOMYCIN 1,000 MG/NS 250 ML IV SCH ×2 (16:00)
[2017-04-02] MEDS: FLUCONAZOLE 200 MG TAB PO SCH (16:15)
[2017-04-02] MEDS: INSULIN ASPART 1,000 UNITS/10 ML VIAL SQ SCH (17:00)
[2017-04-02 19:42] VITALS: BP 168/80; PULSE 68; RESP 17; TEMP 98.2; O2SAT 99
[2017-04-02] MEDS: REMOVE OLD NICOTINE PATCH T-DERMAL SCH (21:00)
[2017-04-02] MEDS ORDERED: SULFAMETHOXAZOLE-TRIMETHOPRIM DS 800-160 MG TAB PO SCH (21:00)
[2017-04-02] MEDS: ATORVASTATIN 10 MG TAB PO SCH (21:39)
[2017-04-03] MEDS: LORazepam 1 MG TAB PO PRN ×2 (03:27→10:11)
[2017-04-03] MEDS: HYDROmorphone HCL 2 MG TAB PO PRN ×2 (03:28→10:11)
[2017-04-03 05:00] VITALS: BP 105/61; PULSE 97; RESP 18; TEMP 97.5; O2SAT 98
[2017-04-03] MEDS: INSULIN ASPART SUPPLEMENTAL SCALE SQ SCH (08:00)
[2017-04-03] MEDS: INSULIN ASPART 1,000 UNITS/10 ML VIAL SQ SCH (08:00)
--- NOTE | 2017-04-03 08:27 | HHI.PR ---
Subjective Remarks No current complaints Hopefully to be discharged later today on Diflucan Patient states he has outpatient primary care and outpatient psychiatry Wants to go home today Objective Vitals Vital Signs Date Time Temp Pulse Resp B/P (MAP) Pulse Ox O2 Delivery O2 Flow Rate FiO2 04/03/17 05:00 97.5 97 18 105/61 (76) 98 04/02/17 19:42 98.2 68 17 168/80 (109) 99 I/O 04/02/17 04/02/17 04/02/17 04/03/17 04/03/17 04/03/17 07:00 15:00 23:00 07:00 15:00 23:00 Intake Total 480 ml 720 ml 360 ml 1080 ml Balance 480 ml 720 ml 360 ml 1080 ml Intake Oral 480 ml 720 ml 360 ml 1080 ml # Voids 2 4 # Bowel Movements 0 Result Diagram: 03/30/17 0343 Other Results Laboratory Tests Test 04/01/17 22:20 04/03/17 06:50 Vancomycin Level Trough 5.5 MCG/ML Imaging Last Impressions Soft Tissue Ultrasound 03/29/17 0000 Signed Impressions: Service Date/Time: Wednesday, March 29, 2017 08:03 - CONCLUSION: 1. Heterogeneous subcutaneous chest wall mass with new posterior projection which appears to extend to the pectoralis muscle. Again, suspect inflammatory/infectious etiology. This is amenable to percutaneous sampling with ultrasound guidance. Enio Molina MD Chest CT 03/29/17 0000 Signed Impressions: Service Date/Time: Wednesday, March 29, 2017 17:42 - CONCLUSION: No concerning infiltrate or mass. Tiny pleural effusions bilaterally right greater left Don Tena MD Objective Remarks GENERAL: Awake alert oriented 3 talkative and cooperative SKIN: Warm and dry. Chest is dressed HEAD: Atraumatic. Normocephalic. EYES: Pupils equal and round. No scleral icterus. No injection or drainage. Extraocular muscles intact ENT: No nasal bleeding or discharge. Mucous membranes pink and moist. Tongue is midline NECK: Trachea midline. No JVD. Supple CARDIOVASCULAR: Regular rate and rhythm. S1 and S2 no S3 or S4 RESPIRATORY: No accessory muscle use. Clear to auscultation. Breath sounds equal bilaterally. GASTROINTESTINAL: Abdomen soft, non-tender, nondistended. Hepatic and splenic margins not palpable. MUSCULOSKELETAL: Extremities without clubbing, cyanosis, or edema. No obvious deformities. NEUROLOGICAL: Awake and alert. No obvious cranial nerve deficits. Motor grossly within normal limits. Five out of 5 muscle strength in the arms and legs. Normal speech. PSYCHIATRIC: INAppropriate mood and affect; insight and judgment ABnormal. Procedures Incision and Drainage of Chest Wall Abscess 04/01/2017. Medications and IVs Current Medications Lorazepam (Ativan) 1 mg Q6H PRN PO MODERATE TO SEVERE ANXIETY Last administered on 04/03/17 03:27; Start 03/28/17 at 18:15 Lorazepam (Ativan Inj) 1 mg Q6H PRN IM MODERATE TO SEVERE ANXIETY; Start 03/28 at 18:15 Magnesium Hydroxide (Milk Of Magnesia Liq) 30 ml DAILY PRN PO CONSTIPATION; Start 03/28/17 at 18:15; Stop 04/02/17 at 08:17; Status DC Al Hydrox/Mg Hydrox/Simethicone (Mag-Al Plus Susp Liq) 30 ml Q6H PRN PO DYSPEPSIA; Start 03/28/17 at 18:15; Stop 03/29/17 at 10:15; Status DC Nicotine (Habitrol 21 Mg Patch.24 Hr) 1 patch DAILY T-DERMAL ; Start 03/29/17 at 09:00 Miscellaneous Information 1 HS T-DERMAL ; Start 03/28/17 at 21:00 Escitalopram Oxalate (Lexapro) 10 mg DAILY PO Last administered on 03/29/17 08:38; Start 03/29/17 at 09:00; Stop 03/29/17 at 10:22; Status DC Bupropion HCl (Wellbutrin Xl 24 Hr) 150 mg DAILY PO ; Start 03/29/17 at 09:00; Stop 03/29/17 at 09:00; Status DC Insulin Detemir (Levemir Inj) 20 units HS SQ ; Start 03/28/17 at 21:00; Stop 03/28/17 at 21:00; Status DC Bupropion HCl (Wellbutrin Sr) 150 mg DAILY PO Last administered on 03/29/17 08:37; Start 03/29/17 at 09:00; Stop 03/29/17 at 10:27; Status DC Insulin Detemir (Levemir Inj) 47 units Q12HR SQ Last administered on 08:01; Start 03/28/17 at 21:00; Stop 04/02/17 at 11:04; Status DC Dextrose (D50w (Vial) Inj) 50 ml UNSCH PRN IV PUSH HYPOGLYCEMIA-SEE COMMENTS; Start 03/28/17 at 20:30 Glucagon (Glucagon Inj) 1 mg UNSCH PRN OTHER HYPOGLYCEMIA-SEE COMMENTS; Start 03/28/17 at 20:30 Insulin Aspart (NovoLOG SUPPLEMENTAL SCALE) 1 ACHS SLIDING SCALE SQ Last administered on 04/02/17 21:00; Start 03/28/17 at 21:00 Atorvastatin Calcium (Lipitor) 10 mg HS PO Last administered on 03/28/17 21: 48; Start 03/28/17 at 21:00; Stop 03/29/17 at 10:15; Status DC Hydromorphone HCl (Dilaudid) 1 mg Q6H PRN PO Pain 6-10 Last administered on 03:28; Start 03/28/17 at 20:45 Miscellaneous (Pill Splitter) 1 ea UNSCH PRN OTHER SEE LABEL COMMENTS; Start 03/28/17 at 22:15 Acetaminophen (Tylenol) 650 mg Q4H PRN PO Pain 1-5 or Temp >101F; Start at 10:00 Magnesium Hydroxide (Milk Of Magnesia Liq) 30 ml DAILY PRN PO CONSTIPATION; Start 03/29/17 at 10:00 Al Hydrox/Mg Hydrox/Simethicone (Mag-Al Plus Susp Liq) 30 ml Q6H PRN PO DYSPEPSIA; Start 03/29/17 at 10:00 Atorvastatin Calcium (Lipitor) 10 mg HS PO Last administered on 04/02/17 21: 39; Start 03/29/17 at 21:00 Bupropion HCl (Wellbutrin Sr) 150 mg DAILY PO Last administered on 04/02/17 08:01; Start 03/30/17 at 09:00 Escitalopram Oxalate (Lexapro) 10 mg DAILY PO Last administered on 04/02/17 08:00; Start 03/30/17 at 09:00 Folic Acid (Folate) 1 mg DAILY PO Last administered on 04/02/17 08:00; Start 03/30/17 at 09:00 Multivitamins (Theragran) 1 tab DAILY PO Last administered on 04/02/17 08:01 ; Start 03/30/17 at 09:00 Thiamine HCl (Vitamin B1) 100 mg DAILY PO Last administered on 04/02/17 08:00 ; Start 03/30/17 at 09:00 Non-Formulary Medication 1 tab DAILY PO ; Start 03/30/17 at 09:00; Stop at 09:00; Status DC Iohexol (Omnipaque 350 Inj) 71 ml STK-MED ONCE IVCONTRAST ; Start 03/29/17 at 17:49; Stop 03/29/17 at 17:50; Status DC Pharmacy Profile Note 0 ml @ 0 mls/hr UNSCH OTHER ; Start 03/29/17 at 19:15; Stop 04/02/17 at 11:18; Status DC Sodium Chloride 1,000 ml @ 999 mls/hr BOLUS ONCE IV ; Start 03/29/17 at 19:15 ; Stop 03/29/17 at 20:15; Status DC Vancomycin HCl 1000 mg/Sodium Chloride 250 ml @ 250 mls/hr Q12H IV Last administered on 04/02/17 08:01; Start 03/29/17 at 21:00; Stop 04/02/17 at 10 :48; Status DC Miscellaneous Information SPECIFIC LAB TO BE DRAWN:VANCO TROUGH DATE TO BE DR... ONCE ONCE .XX Last administered on 03/31/17 08:45; Start 03/31/17 at 08:45; Stop 03/31/17 at 08:46; Status DC Lisinopril (Prinivil) 2.5 mg DAILY PO Last administered on 04/02/17 08:01; Start 03/30/17 at 13:45 Selenium Sulfide (Selsun Lotion 2.5%) 1 applic DAILY TOPICAL Last administered on 04/02/17 08:01; Start 03/30/17 at 14:00; Stop 04/05/17 at 13:59 Pioglitazone HCl (Actos) 15 mg AC DINNER PO ; Start 03/30/17 at 16:00; Stop 03/31/17 at 13:35; Status DC Lidocaine HCl (Xylocaine 1% Inj) 30 ml ONCE ONCE OTHER Last administered on 09:30; Start 04/01/17 at 09:30; Stop 04/01/17 at 09:31; Status DC Vancomycin HCl 1000 mg/Sodium Chloride 250 ml @ 250 mls/hr Q8H IV ; Start at 16:00; Stop 04/02/17 at 16:00; Status DC Miscellaneous Information SPECIFIC LAB TO BE DRAWN:VANCOMYCIN TROUGH DATE TO... ONCE ONCE .XX ; Start 04/03/17 at 15:45; Stop 04/03/17 at 15:46; Status Cancel Insulin Detemir (Levemir Inj) 35 units Q12HR SQ Last administered on 21:00; Start 04/02/17 at 21:00 Insulin Aspart (NovoLOG INJ) 3 units TIDAC SQ Last administered on 04/02/17 11:49; Start 04/02/17 at 12:00; Stop 04/02/17 at 16:12; Status DC Trimethoprim/ Sulfamethoxazole (Bactrim Ds 800-160 Mg) 1 tab Q12HR PO ; Start 04/02/17 at 21:00; Stop 04/02/17 at 21:00; Status DC Fluconazole (Diflucan) 200 mg DAILY PO Last administered on 04/02/17 16:15; Start 04/02/17 at 16:15; Stop 04/16/17 at 16:14 Insulin Aspart (NovoLOG INJ) 5 units TIDAC SQ ; Start 04/02/17 at 17:00 A/P Problem List: (1) Chest wall mass ICD Code: R22.2 - Localized swelling, mass and lump, trunk (2) Diabetes ICD Code: E11.9 - Type 2 diabetes mellitus without complications Assessment and Plan Mr. Bedolla is a 31-year-old male with past medical history significant for type 1 diabetes mellitus with noncompliance, chronic pain and adjustment disorder with anxiety/depression and IV drug abuse is seen in medical consultation. - Anterior chest wall abscess - CT surgery performed bedside I&D. Abscess was about 3cm. - Currently on Vancomycin. Will d/c Vancomycin and start patient on Bactrim DS X 14 days since abscess is > 2cm. - Blood cx negative. Wound cx pending, no organism seen on gram stain. - Follow up with PCP after discharge - Type 1 diabetes mellitus - Patient takes 47 units of Lantus BID at home along with pre-meal and sliding scale insulin (Regular insulin). - He is advised to follow up with an research development director in the outpatient setting. - While he is in the hospital, due to controlled food intake, 47 units of Levemir is too much which is why his blood glucose may be on the lower side. - Will reduce Levemir by about 30% to Levemir 35 units Q12hrs. - Add Aspart 3 units TIDAC. Hold if pre-meal glucose less than 110. - Continue sliding scale insulin. Full code. Ambulation. . Medically stable for discharge today Continue Diflucan daily for the next 14 days for the wound Home health care if able to be done Discharge Planning Medically cleared for discharge Ignacio Roque DO Apr 03, 2017 08:27
[2017-04-03] MEDS ORDERED: CHLO25CA9 PO (08:32)
[2017-04-03] MEDS ORDERED: THIA100 PO (08:32)
[2017-04-03] MEDS ORDERED: LEVEMIR SQ (08:32)
[2017-04-03] MEDS ORDERED: FOLI1TAB6 PO (08:32)
[2017-04-03] MEDS ORDERED: THERTAB15 PO (08:32)
[2017-04-03] MEDS ORDERED: DIFL200T PO (08:32)
[2017-04-03] MEDS ORDERED: LISI-519 PO (08:32)
[2017-04-03] MEDS: SELENIUM SULFIDE 2.5% LOTION 120 ML BTL TOPICAL SCH (09:00)
[2017-04-03] MEDS: INSULIN DETEMIR 100 UNITS/ML VIAL SQ SCH (09:00)
[2017-04-03] MEDS: NICOTINE 21 MG/24 HR PATCH T-DERMAL SCH (09:00)
[2017-04-03] MEDS: ESCITALOPRAM OXALATE 10 MG TAB PO SCH (09:27)
[2017-04-03] MEDS: FOLIC ACID 1 MG TAB PO SCH (09:28)
[2017-04-03] MEDS: LISINOPRIL 5 MG TAB PO SCH (09:28)
[2017-04-03] MEDS: THIAMINE HCL 100 MG TAB PO SCH (09:28)
[2017-04-03] MEDS: MULTIVITAMIN TAB PO SCH (09:28)
[2017-04-03] MEDS: buPROPion HCL 150 MG SUSTAINED RELEASE TAB PO SCH (09:28)
[2017-04-03] MEDS: FLUCONAZOLE 200 MG TAB PO SCH (09:28)
--- NOTE | 2017-04-03 10:07 | PD.TTN ---
Patient Problems 1. Discharge planning 2. Medication compliance 3. Knowledge deficit 4. Lack of coping skills Progress Toward Goals Provider Present: Dr. Marie Harry Provider Input: Patient's has been cleared mentally pending medical clearence 04/03 Patient has had some medication adjustment. Once patient is stablized patient will be folowed by home health care. Psychiatric Counselors Present: KIKI Lee, KAILYN Russo Psych Therapist Input: Counselor will link patient with outpatient service, and contact patient's mother for transportation. 04/03 Patient will be linked with home health care once stablized. Group Spec/RT/OT/WEISS Present: Karlo Marin OT Group Spec/RT/OT/WEISS Input: Patient has refused and been unable to attend groups and activites 04/03 Patient has refused and been unable to attend groups and activities. Documentation Scribe: KIKI Lee Date Resolved: Apr 01, 2017 Teaching Recipient: Patient, Primary Caregiver Jennifer Rushing Apr 03, 2017 10:07
[2017-04-03] MEDS ORDERED: BUPR150CR PO (10:21)
[2017-04-03] MEDS ORDERED: ESCI10TA PO (10:21)
--- NOTE | 2017-04-03 10:28 | HHI.DS ---
Psychiatry Discharge Summary Inpatient Psychiatric care?: Yes Advance Directive: No Reason Not Provided: Due to Patient Condition Mental Health AdvanceDirective: No Health Care Proxy: No Admission Admission Date Mar 28, 2017 at 15:57 Admission Diagnosis: (1) Adjustment disorder with mixed disturbance of emotions and conduct ICD Code: F43.25 - Adjustment disorder with mixed disturbance of emotions and conduct Brief History Patient 31-year-old white male well-known post multiple prior contacts comes here under Gonzalez act by the [facility] office visit 03/25/17 at 7: 50 PM the document reviewed stating Don is not taking care of himself and his medical conditions diabetes Don made statements in reference to suicide by copper miner 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 Medical advised that Don has been talking about suicide recently. Patient was brought to [facility]. Was admitted there on that date in diabetic ketoacidosis for blood sugar level of over 450. It appears there is no urine toxicology done at that time. He should medically cleared yesterday transferred here under the TRA act for further care. Of interest patient was hospitalized here 03/14/17 through with is discharged home on Celexa 10 mg daily and Wellbutrin XL 150 mg daily. Patients had multiple visits related to his quite labile diabetes with blood sugars ranging from 30s and 40s to over 1600. At the present time patient seen quietly in his room is calm cooperative is somewhat irritable and guarded. States he is having argument with his father about his insulin, but his independence. Though he states he lives under the same roof but separately and a "in-laws" apartment. He lives with his mother and father and that situation. It appears the patient is unemployed at this time is basically in the house with his family. He states she's been overall cooperative with his medication. Though the history from being noncompliant with and misusing various drugs in the past he is on significant opiates and psychotropic medications at the present time. States she is being prescribed by Dr. Sherwood in that area. She also has a fluctuant lesion on his chest wall that has been assessed by our hospitalist today. He is being managed with his diabetes and his other medical issues by the hospitalist. Attempted to reach patient's parents that both her home phone and their cell phone [phone] and [phone] without results. At the present time I feel patient does meet criteria for further observation assessment for both his mental health issues and is significant medical conditions. I feel he does meet criteria for Gonzalez act for involuntary hospitalization thus I'll do first opinion requests a second opinion. I feel he does have capacity to sign for his medications. We' ll continue his Celexa and is low patient per the med reconciliation. We did have the hospitalist consulting with us. Patient does deny physical or sexual abuse. Denies mental health issues and family. Tobacco Use In Past 30 Days: 4 or Less Cigarettes/Day Alcohol Use: Never Hospital Course Patient's hospital course was uneventful in regards to his slow recovery with his mental health issues. He show compliance with medications. All at times staying in his room was overall no significant issues. However he was transferred to [facility] to help manage and treat his severe diabetic issues. Also to address was a superficial abscess of his chest wall. Those issues have been addressed. He has been medically clear for discharge. With had consultation with patient's family they are ready to have him come home. At this time patient a longer meets criteria for inpatient psychiatric hospitalization. Thus will be discharged today to his family medicine services written there medications I have written the psychotropic medications will refer also home health care to help do initial treatment and monitoring of the abscess on his anterior chest wall. Attempt to help monitor with the diabetic issues Results Blood Pressure 105 / 61 Vital Signs Date Time Temp Pulse Resp B/P (MAP) Pulse Ox O2 Delivery O2 Flow Rate FiO2 04/03/17 05:00 97.5 97 18 105/61 (76) 98 Laboratory Tests Test 04/01/17 22:20 04/03/17 06:50 Laboratory Results Test 03/29/17 08:25 Cholesterol Level 199 MG/DL (120-200) HDL Cholesterol 39.6 MG/DL (40.0-60.0) Hemoglobin A1c 13.2 % (4.3-6.0) LDL Cholesterol MG/DL (0-99) Triglycerides Level 414 MG/DL (42-150) Summary of Procedures Drainage of abscess anterior chest wall Imaging Last Impressions Soft Tissue Ultrasound 03/29/17 0000 Signed Impressions: Service Date/Time: Wednesday, March 29, 2017 08:03 - CONCLUSION: 1. Heterogeneous subcutaneous chest wall mass with new posterior projection which appears to extend to the pectoralis muscle. Again, suspect inflammatory/infectious etiology. This is amenable to percutaneous sampling with ultrasound guidance. Enio Molina MD Chest CT 03/29/17 0000 Signed Impressions: Service Date/Time: Wednesday, March 29, 2017 17:42 - CONCLUSION: No concerning infiltrate or mass. Tiny pleural effusions bilaterally right greater left Don Tena MD Pending results at discharge: No Medications # of Antipsychotic meds at D/C: 0 Approp Antipsych med options 1 - Minimum of three failed multiple trials of monotherapy. 2 - Documented plan to taper to monotherapy due to previous use of multiple meds OR cross-taper in progress at D/C. 3 - Documentation of augmentation of Clozapine. 4 - Justification other than those listed in allowable values 1-3, document here : Discharge Discharge Date: Apr 03, 2017 Discharge Diagnosis: (1) Adjustment disorder with mixed disturbance of emotions and conduct Diagnosis: Principal ICD Code: F43.25 - Adjustment disorder with mixed disturbance of emotions and conduct Pt Condition on Discharge: Stable Discharge Disposition: Discharge Home Discharge Instructions Diet Instructions: Diabetic Diet Activities you can perform: Regular-No Restrictions Scheduled Appointment: refer home health care for mental health assessment and wound management also follow-up psychiatric services in the community Discharge Time > 30 minutes Mental Status Examination Appearance: Appropriate, Disheveled (mildly) Consciousness: Alert Orientation: Person, Place, Date/Time, Situation Motor Activity: Normal gait Speech: Unremarkable Language: Adequate Fund of Knowledge: Adequate Attention and Concentration: Other (fair) Memory: Unremarkable Mood: Sad, Irritable (resolved) Affect: Other (decreased range and intensity) Thought Process & Associations: Intact, Linear Thought Content: Appropriate Hallucination Type: None (denies) Delusion Type: None (denies) Suicidal Ideation: No Suicidal Plan: No Suicidal Intention: No Homicidal Ideation: No Homicidal Plan: No Homicidal Intention: No Insight: Fair Judgment: Adequate Discharge/Advance Care Plan Health Problems: (1) Adjustment disorder with mixed disturbance of emotions and conduct Goals to promote your health * To prevent worsening of your condition and complications * To maintain your health at the optimal level Directions to meet your goals Take your medications as prescribed Follow your dietary instruction Follow activity as directed Keep your appointments as scheduled Take your immunizations and boosters as scheduled If your symptoms worsen call your PCP, if no PCP go to Urgent Care Center or Emergency Room For 26/11 questions related to your inpatient stay or results of tests pending at discharge, please contact Dr. Milo Harry at Smoking is Dangerous to Your Health. Avoid second hand smoking Milo Harry MD Apr 03, 2017 10:28
[2017-04-03] MEDS ORDERED: DILA2TAB4 PO (11:36)
--- NOTE | 2017-04-03 11:54 | HHI.FF ---
Face to Face Verification Diagnosis: (1) s/p incision and drainage chest wall lesion (2) Diabetes (3) Chest wall mass (4) Adjustment disorder with mixed disturbance of emotions and conduct Home Health Nursing Instructions: Daily incision care: ok to shower daily, no tub bath. Wash all incisions with liquid dial soap, clean wash cloth to each site, rinse and pat dry. Observe for any signs of infection, such as drainage which is dark yellow, mendez, green or foul smelling. Immediately report to the surgeon any drainage from the chest incision, or legs, and for any abnormal drainage from the chest tube sites. Notify surgeon if any temp >101.5 degrees F. When specialty dressing removed/ or if you do not have one, continue to shower daily as above, then rinse and pat incision dry and paint with betadine daily x 7 days. then insert sterile Iodoform packing daily x one week , then cover with dry sterile gauze Avoid lotions, creams, salves, oils, etc. for the first month F/U appointment: as per [place] instructions: CV surgeon 1week, For any questions regarding incisions/ dressing / meds / post op care or above Symptoms, Saturday 8am-5pm Heart & Vascular Surgery Office ( Dr. Waters & Dr. Barrios), After Hours / Nights (5pm -8am) Weekends and Holidays Please call [facility] ([facility]) Charge Nurse I have seen patient Ignacio Bedolla on 04/03/17. My clinical findings support the need for the requested home health care services because: Infection w/ risk of complications I certify that my clinical findings support that this patient is homebound because: Post-op weakness Need for psychosocial assistance Cristina Wen Apr 03, 2017 11:54
--- NOTE | 2017-04-03 12:00 | PD.CAR.PN ---
CVT Progress Note Subjective/Hospital Course: 31-year-old young man with a known history of diabetes, IV drug use, chronic pain and a history of adjustment disorder with anxiety and depression who was admitted with a psychiatric diagnosis and concerns. During his hospitalization, he was also noted to have a left anterior chest wall lesion. The patient reports that he has had this cystic subcutaneous lesion for a couple months now. At one point, at home he lanced it and drained it himself with exudation of purulent fluid. It is still there however he reports at the present time it is much smaller than what it was initially at the time of initial lancing. Denies any progressive fevers, chills or other infectious complaints. 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 04/01 I&D of chest lesion completed by Dr Waters / iodoform inserted in wound pt will need bid iodoform dressing changes , site to be cleansed with chloraseptic prior new culture obtained / await final results 04/02 2.5 cm wound with packing in place , minimal fluctuance noted, initial culture viewed + lemuel albicans , will need fungal coverage , will discuss with [facility] continue iodoform packing bid packing removed, still has significant yellowish drainage wound is 3x3 mm in circumference and 3-4mm deep continue daily dressing change with packing as instructed , C to assist ok to dc home on antibiotics, wound care instructions has f/u visit in one week at outpt clinic for wound eval Objective: Vital Signs Date Time Temp Pulse Resp B/P (MAP) Pulse Ox O2 Delivery O2 Flow Rate FiO2 04/03/17 05:00 97.5 97 18 105/61 (76) 98 04/02/17 19:42 98.2 68 17 168/80 (109) 99 Labs: Laboratory Tests Test 04/03/17 06:50 Result Diagram: 03/30/17 0343 (1) Diabetes (2) Chest wall mass Plan: I&D completed, bid dressing changes preliminary lemuel albicans/ will need fungal coverage will re-eval wound in am for discharge instructions (3) Adjustment disorder with mixed disturbance of emotions and conduct Cristina Wen Apr 03, 2017 12:00
[2017-04-03] MEDS ORDERED: PHARMACY ORDERED LAB ONE (15:45)
== END 2017-04-03 12:15 | disposition home or self-care (01) | DRG 882 ==
LOC: UNDOADMIN 14:30 → H250 14:30 → H4EA 03-29 18:13
PROVIDERS: ADMIT Psychiatry & Neurology Psychiatry; ATTEND Psychiatry & Neurology Psychiatry
PROC: 0W983ZZ Drainage of Chest Wall, Percutaneous Approach (ICD-10-PCS; principal; 2017-04-01)
DX: F43.25 Adjustment disorder with mixed disturbance of emotions and conduct (principal); B37.89 Other sites of candidiasis; E10.649 Type 1 diabetes mellitus with hypoglycemia without coma; L02.213 Cutaneous abscess of chest wall; E78.5 Hyperlipidemia, unspecified; F17.210 Nicotine dependence, cigarettes, uncomplicated; F19.10 Other psychoactive substance abuse, uncomplicated; B36.0 Pityriasis versicolor; Z91.19 Patient's noncompliance with other medical treatment and regimen; G89.29 Other chronic pain; Z79.4 Long term (current) use of insulin; Z79.899 Other long term (current) drug therapy; Z79.891 Long term (current) use of opiate analgesic
CPT/HCPCS: 71260; 76937; 76999; 80048; 80061; 80202; 82390; 82948; 83036; 85025; 87040; 87070; 87205; J1815; J3370; J7050; Q9967